=== PATIENT | female | born 1955 | race American Indian/Alaskan Native ===

== ENCOUNTER 2017-03-29 09:29 | Inpatient (IN) | payer OTHER ==
[2017-03-29] MEDS ORDERED: Albuterol/Ipratropium 3.0-0.5 MG/3 ML Neb Soln NEB ONE (09:55)
[2017-03-29 10:30] LABS: CHLORIDE,CL 92 mmol/L (101-111); SODIUM,NA 136 mmol/L (135-145)
--- NOTE | 2017-03-29 10:42 | EDM.PDOC ---
ED HPI GENERAL MEDICAL PROBLEM - General Chief Complaint: Respiratory Problem Stated Complaint: SICK, TROUBLE BREATH Time Seen by Provider: 03/29/17 10:00 Source of Information: Reports: Patient History Limitations: Reports: No Limitations - History of Present Illness INITIAL COMMENTS - FREE TEXT/NARRATIVE: This 61 yo female patient reports to the ED with her daughter due to increased shortness of breath, cough and generalized weakness. The patient reports she started getting worse about 3 days ago, but has been dealing with the increased shortness of breath and cough for about 3 weeks. Upon arrival in the ED, the patient's oxygen saturation was 82% on room air. Nursing staff placed her on a nasal cannula which increased her oxygen level to 86%. The patient reports she has "never been this bad". The patient reports she has continued to smoke (50 year history), but has only smoked 2 cigarettes over the past 24 hours. The patient works the [employer] shift at the [employer]. The patient reports she is currently unable to walk very far before she has to stop to catch her breath. 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 ED EXAM, GENERAL - Physical Exam Exam: See Below Exam Limited By: No Limitations General Appearance: Alert, WD/WN, Moderate Distress, Obese Eye Exam: Bilateral Eye: EOMI, Normal Inspection, PERRL Ears: Normal External Exam, Normal Canal, Hearing Grossly Normal, Normal TMs Nose: Normal Inspection, Normal Mucosa, No Blood Throat/Mouth: Normal Inspection, Normal Lips, Normal Teeth, Normal Gums, Normal Oropharynx, Normal Voice, No Airway Compromise Head: Atraumatic, Normocephalic Neck: Normal Inspection, Supple, Non-Tender, Full Range of Motion Respiratory/Chest: Chest Non-Tender, Decreased Breath Sounds, Rhonchi (diffuse ) Cardiovascular: Normal Peripheral Pulses, Regular Rate, Rhythm, No Edema, No Gallop, No JVD, No Murmur, No Rub GI/Abdominal: Normal Bowel Sounds (Female) Exam: Deferred Rectal (Female) Exam: Deferred Back Exam: Normal Inspection, Full Range of Motion, NT Extremities: Normal Inspection, Normal Range of Motion, Non-Tender, Normal Capillary Refill, No Pedal Edema Neurological: Alert, Oriented, CN II-XII Intact, Normal Cognition, Normal Gait, Normal Reflexes, No Motor/Sensory Deficits Psychiatric: Normal Affect, Normal Mood Skin Exam: Warm, Dry, Intact, Normal Color, No Rash Lymphatic: No Adenopathy Course - Vital Signs Last Recorded V/S: Last Vital Signs Temp 37.0 C 03/29/17 09:46 Pulse 115 H 03/29/17 10:05 Resp 22 H 03/29/17 09:46 BP 128/58 L 03/29/17 09:46 Pulse Ox 90 L 03/29/17 10:05 - Orders/Labs/Meds Orders: Active Orders 24 hr Category Date Time Status RT Aerosol Therapy [RC] ASDIRECTED Care 03/29/17 09:56 Active Chest 2V [CR] Urgent Exams 03/29/17 09:49 Taken CULTURE BLOOD [BC] Stat Lab 03/29/17 10:00 Received CULTURE BLOOD [BC] Stat Lab 03/29/17 10:05 Received CULTURE SPUTUM + SMEAR [RM] Stat Lab 03/29/17 10:36 Received Azithromycin [Zithromax] 1,000 mg Med 03/29/17 11:18 Ordered Sodium Chloride 0.9% [Normal Saline] 250 ml IV ONETIME cefTRIAXone [Rocephin] 500 mg Med 03/29/17 11:18 Ordered Sodium Chloride 0.9% [Normal Saline] 50 ml IV ONETIME Blood Culture x2 Reflex Set [OM.PC] Stat Oth 03/29/17 09:49 Ordered Medication Orders Azithromycin 1,000 mg/ Sodium (Chloride) 250 mls @ 250 mls/hr IV ONETIME ONE Stop: 03/29/17 12:17 Ceftriaxone Sodium 500 mg/ (Sodium Chloride) 50 mls @ 100 mls/hr IV ONETIME ONE Stop: 03/29/17 11:47 Labs: Laboratory Tests 03/29/17 03/29/17 03/29/17 Range/Units 10:05 10:05 10:05 WBC 20.0 H (5.0-10.0) 10^3/uL RBC 4.80 (4.2-5.4) 10^6/uL Hgb 14.8 (12.0-16.0) g/dL Hct 47.8 H (37.0-47.0) % MCV 99.6 (80-100) fL MCH 30.8 (27.0-34.0) pg MCHC 31.0 L (33.0-35.0) g/dL Plt Count 222 (150-450) 10^3/uL Neut % (Auto) 85.6 H (42.2-75.2) % Lymph % (Auto) 6.9 L (20.5-50.1) % [place] % (Auto) 7.3 (2-8) % Eos % (Auto) 0.1 L (1.0-3.0) % Baso % (Auto) 0.1 (0.0-1.0) % Add Manual Diff Yes Neutrophils % (Manual) 85 H (42-75) % Band Neutrophils % 2 % Lymphocytes % (Manual) 7 L (20-50) % Monocytes % (Manual) 6 (2-8) % Sodium 136 (135-145) mmol/L Potassium 4.1 (3.6-5.0) mmol/L Chloride 92 L (101-111) mmol/L Carbon Dioxide 33.0 H (21.0-31.0) mmol/L Anion Gap 15.1 BUN 13 (7-18) mg/dL Creatinine 0.9 (0.6-1.3) mg/dL Est Cr Clr Drug Dosing 64.64 mL/min Estimated GFR (MDRD) > 60 BUN/Creatinine Ratio 14.44 Glucose 150 H (74-105) mg/dL Lactic Acid 1.0 (0.5-2.2) mmol/L Calcium 8.7 (8.4-10.2) mg/dl Total Bilirubin 0.7 (0.2-1.0) mg/dL AST 18 (10-42) IU/L ALT 24 (10-60) IU/L Alkaline Phosphatase 89 (42-121) IU/L B-Natriuretic Peptide (0-100) pg/ml Total Protein 7.7 (6.7-8.2) g/dl Albumin 3.3 (3.2-5.5) g/dl Globulin 4.4 Albumin/Globulin Ratio 0.75 // Range/Units 10:05 WBC (5.0-10.0) 10^3/uL RBC (4.2-5.4) 10^6/uL Hgb (12.0-16.0) g/dL Hct (37.0-47.0) % MCV (80-100) fL MCH (27.0-34.0) pg MCHC (33.0-35.0) g/dL Plt Count (150-450) 10^3/uL Neut % (Auto) (42.2-75.2) % Lymph % (Auto) (20.5-50.1) % [place] % (Auto) (2-8) % Eos % (Auto) (1.0-3.0) % Baso % (Auto) (0.0-1.0) % Add Manual Diff Neutrophils % (Manual) (42-75) % Band Neutrophils % % Lymphocytes % (Manual) (20-50) % Monocytes % (Manual) (2-8) % Sodium (135-145) mmol/L Potassium (3.6-5.0) mmol/L Chloride (101-111) mmol/L Carbon Dioxide (21.0-31.0) mmol/L Anion Gap BUN (7-18) mg/dL Creatinine (0.6-1.3) mg/dL Est Cr Clr Drug Dosing mL/min Estimated GFR (MDRD) BUN/Creatinine Ratio Glucose (74-105) mg/dL Lactic Acid (0.5-2.2) mmol/L Calcium (8.4-10.2) mg/dl Total Bilirubin (0.2-1.0) mg/dL AST (10-42) IU/L ALT (10-60) IU/L Alkaline Phosphatase (42-121) IU/L B-Natriuretic Peptide 312 H (0-100) pg/ml Total Protein (6.7-8.2) g/dl Albumin (3.2-5.5) g/dl Globulin Albumin/Globulin Ratio Meds: Medications Generic Name Dose Route Start Last Admin Trade Name Freq PRN Reason Stop Dose Admin Azithromycin 1,000 mg/ Sodium 250 mls @ 250 mls/hr 03/29/17 11:18 Chloride IV 03/29/17 12:17 ONETIME ONE Ceftriaxone Sodium 500 mg/ 50 mls @ 100 mls/hr 03/29/17 11:18 Sodium Chloride IV 03/29/17 11:47 ONETIME ONE Discontinued Medications Generic Name Dose Route Start Last Admin Trade Name Freq PRN Reason Stop Dose Admin Albuterol/Ipratropium 3 ml 03/29/17 09:55 03/29/17 10:05 Duoneb 3.0-0.5 Mg/3 Ml NEB 03/29/17 09:56 3 ml ONETIME ONE Administration Levofloxacin/Dextrose 750 mg/ 150 mls @ 100 mls/hr 03/29/17 10:53 03/29/17 10 :59 Premix IV 03/29/17 12:22 100 mls/hr ONETIME ONE Administration - Re-Assessments/Exams Free Text/Narrative Re-Assessment/Exam: 03/29/17 11:10 Discussed the history, examination, lab and x-ray results with Dr. Castro ( Hospitalist). Dr. Castro agreed to come down to the ED to visit the patient. After hanging up with Dr. Castro, the patient reported a rash and itching over the IV site. The IV Levaquin was discontinued at that time. Departure - Departure Time of Disposition: 11:20 Disposition: Admitted As Inpatient 67 Condition: Fair Clinical Impression: Pneumonia Qualifiers: Pneumonia type: due to unspecified organism Laterality: bilateral Lung location : unspecified part of lung Qualified Code(s): J18.9 - Pneumonia, unspecified organism - Discharge Information Forms: ED Department Discharge Care Plan Goals: Discussed the examination, history, lab and x-ray results with Dr. Castro. Dr. Castro accepted the patient for continued evaluation and management as an inpatient at [facility]. - My Orders Last 24 Hours: My Active Orders 03/29/17 09:49 Chest 2V [CR] Urgent Blood Culture x2 Reflex Set [OM.PC] Stat 03/29/17 09:56 RT Aerosol Therapy [RC] ASDIRECTED 03/29/17 10:00 CULTURE BLOOD [BC] Stat 03/29/17 10:05 CULTURE BLOOD [BC] Stat 03/29/17 10:36 CULTURE SPUTUM + SMEAR [RM] Stat 03/29/17 11:18 Azithromycin [Zithromax] 1,000 mg Sodium Chloride 0.9% [Normal Saline] 250 ml IV ONETIME cefTRIAXone [Rocephin] 500 mg Sodium Chloride 0.9% [Normal Saline] 50 ml IV ONETIME - Assessment/Plan Last 24 Hours: My Active Orders 03/29/17 09:49 Chest 2V [CR] Urgent Blood Culture x2 Reflex Set [OM.PC] Stat 03/29/17 09:56 RT Aerosol Therapy [RC] ASDIRECTED 03/29/17 10:00 CULTURE BLOOD [BC] Stat 03/29/17 10:05 CULTURE BLOOD [BC] Stat 03/29/17 10:36 CULTURE SPUTUM + SMEAR [RM] Stat 03/29/17 11:18 Azithromycin [Zithromax] 1,000 mg Sodium Chloride 0.9% [Normal Saline] 250 ml IV ONETIME cefTRIAXone [Rocephin] 500 mg Sodium Chloride 0.9% [Normal Saline] 50 ml IV ONETIME
[2017-03-29] MEDS ORDERED: Levofloxacin/Dextrose 5%-Water 750 MG in Premix Bag 1 BAG IV ONE (10:53)
[2017-03-29] MEDS ORDERED: Albuterol 0.083% 2.5 MG/3 ML Neb Soln NEB PRN (11:28)
[2017-03-29] MEDS ORDERED: Ondansetron 4 MG/2 ML SDV IVPUSH PRN (11:28)
[2017-03-29] MEDS: cefTRIAXone 500 MG in Sodium Chloride 0.9% 50 ML IV ONE ×2 (11:31→12:05)
--- NOTE | 2017-03-29 11:34 | CR ---
Clinical history: 61-year-old female complaining of shortness of breath (WBC 20,000). Interpretation: Abnormal. Diffuse interstitial fibrotic pattern, generalized air trapping, and hilar prominence suggesting some underlying adenopathy. Smoker? Pneumoconiosis? Interstitial pneumonitis? Normal cardiac silhouette without alveolar edema or dependent effusion. No lung mass, hilar lymphadenopathy or focal lobar consolidation (infiltrate/atelectasis).
[2017-03-29] MEDS ORDERED: cefTRIAXone 500 MG in Sodium Chloride 0.9% 50 ML IV ONE (11:36)
[2017-03-29] MEDS ORDERED: Azithromycin 500 MG in Sodium Chloride 0.9% 250 ML IV ONE (12:00)
[2017-03-29] MEDS: Sodium Chloride 0.9% 1,000 ML IV SCH ×2 (12:07→21:38)
[2017-03-29] MEDS: cefTRIAXone 1 GM in Sodium Chloride 0.9% 50 ML IV SCH (12:33)
--- NOTE | 2017-03-29 16:43 | HP ---
CHIEF COMPLAINT: Shortness of breath and cough. HISTORY OF PRESENT ILLNESS: Ms. Preeti Remy is a 61-year-old female with no previous medical history. She presented to emergency room with complaint of cough, which has been going on for about one week. The cough was worsened over time. She has associated shortness of breath, which is present at rest, but significantly worse with activity. She has been coughing up yellowish sputum. She does not know if she has had any fever, but has occasional chills. No nausea. No vomiting. Her exercise tolerance has been markedly limited because of the cough and shortness of breath. At presentation in the emergency room, she was noted to be hypoxic with saturation down to 80%. She was tachycardic heart rate of 122 per minute. She was placed on supplemental oxygen. Denies chest pain. REVIEW OF SYSTEMS: A 10-point review of system performed including constitutional, cardiac, respiratory, gastrointestinal, respiratory. No other pertinent findings except as noted above. PAST MEDICAL HISTORY: None of note. SOCIAL HISTORY: Smokes one pack of cigarettes per day. FAMILY HISTORY: Reviewed and considered noncontributory. OBJECTIVE: General: The patient is alert, oriented to place, time, and person. Head: Atraumatic and normocephalic. Ear, Nose, and throat: Unremarkable. Chest: Diminished air entry bilaterally. Crackles at lung bases. CVS: Regular rate and rhythm. No S3, S4. Tachycardia. Abdomen: Soft and nontender. Extremities: No pedal edema. No finger clubbing. Skin: No rash. Neuro: Symmetric strength. Vital Signs: Blood pressure is a little bit on the soft side, systolic of 80 and diastolic of 67, pulse is 112 per minute. Oxygen saturation 80% on room. LABORATORY DATA: White count is 20,000. Chest x-ray shows infiltrates at lung bases, bilateral. Basic metabolic panel essentially unremarkable. BNP is 312. ASSESSMENT: 1. Acute hypoxemic respiratory failure, this is a result of chronic obstructive pulmonary disease and pneumonia. 2. Community-acquired pneumonia. The patient is coughing. She is short of breath. Chest x-ray showed density in the lung bases. 3. Sepsis, likely due to pneumonia. 4. Emphysema. The patient is an active smoker. 5. Tobacco use disorder, smokes one pack of cigarettes a day. PLAN: 1. Admit patient to medical floor. 2. Sputum culture. 3. Blood culture. 4. I will check serum lactate. 5. Obtain repeat CBC, obtain repeat basic metabolic panel. 6. Empiric antibiotics, intravenous ceftriaxone, intravenous azithromycin. 7. Normal saline run at 125 mL an hour. 8. Repeat BNP. 9. Chart reviewed. Discussed with emergency room physician orthopedic assistant. [facility] /[id number]
[2017-03-29] MEDS: Albuterol/Ipratropium 3.0-0.5 MG/3 ML Neb Soln NEB SCH ×2 (16:56→20:55)
[2017-03-30] MEDS: Sodium Chloride 0.9% 1,000 ML IV SCH ×3 (06:23→22:19)
[2017-03-30 06:39] LABS: CHLORIDE,CL 97 mmol/L (101-111); SODIUM,NA 139 mmol/L (135-145)
[2017-03-30] MEDS: Albuterol/Ipratropium 3.0-0.5 MG/3 ML Neb Soln NEB SCH ×4 (07:28→21:24)
[2017-03-30] MEDS: Enoxaparin 40 MG/0.4 ML Syringe SUBCUT SCH (08:42)
--- NOTE | 2017-03-30 10:52 | PCM.PN ---
- General Info Date of Service: 03/30/17 Subjective Update: Had low-grade temperature overnight. Still has moderate shortness of breath that started prior to admission. Shortness of breath is worse with activity better with rest. Associated with cough. No abdominal pain. Functional Status: Reports: Tolerating Diet - Review of Systems General: Reports: Fever (Low-grade) Pulmonary: Reports: Shortness of Breath, Cough. Denies: Hemoptysis Gastrointestinal: Denies: Abdominal Pain Neurological: Denies: Confusion - Patient Data Vitals - Most Recent: Last Vital Signs Temp 37.4 C 03/30/17 07:00 Pulse 112 H 03/30/17 07:24 Resp 20 03/30/17 07:00 BP 138/68 03/30/17 07:00 Pulse Ox 91 L 03/30/17 07:24 Weight - Most Recent: 107.728 kg I&O - Last 24 Hours: Intake & Output 03/29/17 03/30/17 03/30/17 22:59 06:59 14:59 Intake Total 1678 990 Output Total 900 Balance 1678 90 Lab Results Last 24 Hours: Laboratory Results - last 24 hr 03/29/17 03/30/17 03/30/17 Range/Units 16:38 06:10 06:10 WBC 16.5 H (5.0-10.0) 10^3/uL RBC 4.19 L (4.2-5.4) 10^6/uL Hgb 12.9 D (12.0-16.0) g/dL Hct 42.9 (37.0-47.0) % MCV 102.4 H (80-100) fL MCH 30.8 (27.0-34.0) pg MCHC 30.1 L (33.0-35.0) g/dL Plt Count 198 (150-450) 10^3/uL Neut % (Auto) 84.7 H (42.2-75.2) % Lymph % (Auto) 8.7 L (20.5-50.1) % [place] % (Auto) 6.4 (2-8) % Eos % (Auto) 0.1 L (1.0-3.0) % Baso % (Auto) 0.1 (0.0-1.0) % Sodium (135-145) mmol/L Potassium (3.6-5.0) mmol/L Chloride (101-111) mmol/L Carbon Dioxide (21.0-31.0) mmol/L Anion Gap BUN (7-18) mg/dL Creatinine (0.6-1.3) mg/dL Est Cr Clr Drug Dosing mL/min Estimated GFR (MDRD) Glucose (74-105) mg/dL Calcium (8.4-10.2) mg/dl Troponin I < 0.02 (0.00-0.02) ng/ml B-Natriuretic Peptide 262 H (0-100) pg/ml 03/30/17 Range/Units 06:10 WBC (5.0-10.0) 10^3/uL RBC (4.2-5.4) 10^6/uL Hgb (12.0-16.0) g/dL Hct (37.0-47.0) % MCV (80-100) fL MCH (27.0-34.0) pg MCHC (33.0-35.0) g/dL Plt Count (150-450) 10^3/uL Neut % (Auto) (42.2-75.2) % Lymph % (Auto) (20.5-50.1) % [place] % (Auto) (2-8) % Eos % (Auto) (1.0-3.0) % Baso % (Auto) (0.0-1.0) % Sodium 139 (135-145) mmol/L Potassium 4.3 (3.6-5.0) mmol/L Chloride 97 L (101-111) mmol/L Carbon Dioxide 34.0 H (21.0-31.0) mmol/L Anion Gap 12.3 BUN 8 (7-18) mg/dL Creatinine 0.6 (0.6-1.3) mg/dL Est Cr Clr Drug Dosing 93.34 mL/min Estimated GFR (MDRD) > 60 Glucose 105 (74-105) mg/dL Calcium 8.2 L (8.4-10.2) mg/dl Troponin I (0.00-0.02) ng/ml B-Natriuretic Peptide (0-100) pg/ml Med Orders - Current: Current Medications Acetaminophen (Tylenol) 650 mg PO Q4H PRN PRN Reason: Pain (Mild 1-3)/fever Albuterol (Proventil Neb Soln) 2.5 mg NEB Q2H PRN PRN Reason: shortness of breath/wheezing Albuterol/Ipratropium (Duoneb 3.0-0.5 Mg/3 Ml) 3 ml NEB QIDRT [facility] Last Admin: 03/30/17 07:28 Dose: 3 ml Budesonide (Pulmicort) 0.5 mg NEB BIDRT [facility] Enoxaparin Sodium (Lovenox) 40 mg SUBCUT DAILY [facility] Last Admin: 03/30/17 08:42 Dose: 40 mg Sodium Chloride (Normal Saline) 1,000 mls @ 125 mls/hr IV ASDIRECTED [facility] Last Admin: 03/30/17 06:23 Dose: 125 mls/hr Ceftriaxone Sodium 1 gm/ (Sodium Chloride) 50 mls @ 100 mls/hr IV Q24H [facility] Last Infusion: 03/29/17 14:23 Dose: Infused Azithromycin 250 mg/ Sodium (Chloride) 250 mls @ 250 mls/hr IV Q24H [facility] Ondansetron HCl (Zofran) 4 mg IVPUSH Q6H PRN PRN Reason: Nausea/Vomiting Senna/Docusate Sodium (Senna Plus) 1 tab PO BID [facility] Discontinued Medications Albuterol/Ipratropium (Duoneb 3.0-0.5 Mg/3 Ml) 3 ml NEB ONETIME ONE Stop: 03/29/17 09:56 Last Admin: 03/29/17 10:05 Dose: 3 ml Levofloxacin/Dextrose 750 mg/ (Premix) 150 mls @ 100 mls/hr IV ONETIME ONE Stop: 03/29/17 12:22 Last Admin: 03/29/17 10:59 Dose: 100 mls/hr Azithromycin 1,000 mg/ Sodium (Chloride) 250 mls @ 250 mls/hr IV ONETIME ONE Stop: 03/29/17 12:17 Last Admin: 03/29/17 12:05 Dose: Not Given Ceftriaxone Sodium 500 mg/ (Sodium Chloride) 50 mls @ 100 mls/hr IV ONETIME ONE Stop: 03/29/17 11:47 Last Admin: 03/29/17 12:05 Dose: Not Given Azithromycin 500 mg/ Sodium (Chloride) 250 mls @ 250 mls/hr IV DAILY ONE Stop: 03/29/17 12:59 Last Admin: 03/29/17 12:35 Dose: 250 mls/hr - Exam Quality Assessment: Supplemental Oxygen General: Alert, Oriented Neck: Supple Lungs: Normal Respiratory Effort, Decreased Breath Sounds, Wheezing Cardiovascular: Regular Rate, Regular Rhythm GI/Abdominal Exam: Normal Bowel Sounds, Soft, Non-Tender Extremities: No Pedal Edema Skin: Warm, Dry Psy/Mental Status: Alert, Normal Affect, Normal Mood - Problem List & Annotations (1) Acute exacerbation of chronic obstructive pulmonary disease (COPD) SNOMED Code(s): 000217995 Code(s): J44.1 - CHRONIC OBSTRUCTIVE PULMONARY DISEASE W (ACUTE) EXACERBATION Status: Acute Current Visit: Yes (2) Pneumonia SNOMED Code(s): 964372139 Code(s): J18.9 - PNEUMONIA, UNSPECIFIED ORGANISM Status: Acute Current Visit: Yes Qualifiers: Pneumonia type: due to unspecified organism Laterality: bilateral Lung location: unspecified part of lung Qualified Code(s): J18.9 - Pneumonia, unspecified organism - Problem List Review Problem List Initiated/Reviewed/Updated: Yes - My Orders Last 24 Hours: My Active Orders 03/30/17 10:45 Azithromycin [Zithromax] 250 mg Sodium Chloride 0.9% [Normal Saline] 250 ml IV Q24H 03/30/17 10:46 RT Aerosol Therapy [RC] ASDIRECTED 03/30/17 11:00 Budesonide [Pulmicort] 0.5 mg NEB BIDRT 03/30/17 21:00 Docusate Sodium/Sennosides [Senna Plus] 1 tab PO BID 03/31/17 05:15 BASIC METABOLIC PANEL,BMP [CHEM] AM CBC WITH AUTO DIFF [HEME] AM - Assessment Assessment:: Acute hypoxemic respiratory failure with sepsis present on admission due to acute COPD exacerbation and pneumonia Sepsis resolved Supplemental oxygen as needed Acute community-acquired pneumonia with bilateral lower lobe infiltrates Blood culture pending Sputum culture pending Treat empirically with azithromycin and Rocephin Acute exacerbation of COPD Start Pulmicort Use DuoNeb scheduled and albuterol when necessary DVT prophylaxis with Lovenox Discussed with Dr. Castro today
[2017-03-30] MEDS: cefTRIAXone 1 GM in Sodium Chloride 0.9% 50 ML IV SCH (11:32)
[2017-03-30] MEDS: Budesonide 0.5 MG/2 ML Neb Susp NEB SCH ×2 (11:33→17:12)
[2017-03-30] MEDS ORDERED: Azithromycin 250 MG in Sodium Chloride 0.9% 250 ML IV SCH (12:00)
[2017-03-30] MEDS: Azithromycin 500 MG in Sodium Chloride 0.9% 250 ML IV SCH (12:54)
[2017-03-31] MEDS: Sodium Chloride 0.9% 1,000 ML IV SCH ×2 (06:29→18:56)
[2017-03-31 06:53] LABS: CHLORIDE,CL 98 mmol/L (101-111); SODIUM,NA 139 mmol/L (135-145)
[2017-03-31] MEDS: Albuterol/Ipratropium 3.0-0.5 MG/3 ML Neb Soln NEB SCH ×4 (07:30→22:51)
[2017-03-31] MEDS: Budesonide 0.5 MG/2 ML Neb Susp NEB SCH ×3 (07:30→17:48)
[2017-03-31] MEDS: Enoxaparin 40 MG/0.4 ML Syringe SUBCUT SCH (09:46)
--- NOTE | 2017-03-31 10:15 | PCM.PN ---
- General Info Date of Service: 03/31/17 Subjective Update: Continue to have low-grade temperature. Still has moderate shortness of breath that started prior to admission. Shortness of breath is worse with activity better with rest. Associated with cough. No abdominal pain. - Review of Systems General: Reports: Fever Pulmonary: Reports: Shortness of Breath Cardiovascular: Denies: Chest Pain Gastrointestinal: Denies: Abdominal Pain Psychiatric: Denies: Confusion - Patient Data Vitals - Most Recent: Last Vital Signs Temp 36.2 C 03/31/17 06:59 Pulse 100 03/31/17 07:30 Resp 20 03/31/17 06:59 BP 128/64 03/31/17 06:59 Pulse Ox 95 03/31/17 06:59 Weight - Most Recent: 107.728 kg I&O - Last 24 Hours: Intake & Output 03/30/17 03/31/17 03/31/17 22:59 06:59 14:59 Intake Total 443 1833 Output Total 600 400 Balance -157 1433 Lab Results Last 24 Hours: Laboratory Results - last 24 hr 03/31/17 03/31/17 Range/Units 06:10 06:10 WBC 12.4 H (5.0-10.0) 10^3/uL RBC 4.19 L (4.2-5.4) 10^6/uL Hgb 12.8 (12.0-16.0) g/dL Hct 43.3 (37.0-47.0) % MCV 103.3 H (80-100) fL MCH 30.5 (27.0-34.0) pg MCHC 29.6 L (33.0-35.0) g/dL Plt Count 202 (150-450) 10^3/uL Neut % (Auto) 80.6 H (42.2-75.2) % Lymph % (Auto) 12.6 L (20.5-50.1) % [place] % (Auto) 6.4 (2-8) % Eos % (Auto) 0.2 L (1.0-3.0) % Baso % (Auto) 0.2 (0.0-1.0) % Sodium 139 (135-145) mmol/L Potassium 4.0 (3.6-5.0) mmol/L Chloride 98 L (101-111) mmol/L Carbon Dioxide 36.0 H (21.0-31.0) mmol/L Anion Gap 9.0 BUN 6 L (7-18) mg/dL Creatinine 0.5 L (0.6-1.3) mg/dL Est Cr Clr Drug Dosing 112.01 mL/min Estimated GFR (MDRD) > 60 Glucose 109 H (74-105) mg/dL Calcium 8.0 L (8.4-10.2) mg/dl Med Orders - Current: Current Medications Acetaminophen (Tylenol) 650 mg PO Q4H PRN PRN Reason: Pain (Mild 1-3)/fever Albuterol (Proventil Neb Soln) 2.5 mg NEB Q2H PRN PRN Reason: shortness of breath/wheezing Albuterol/Ipratropium (Duoneb 3.0-0.5 Mg/3 Ml) 3 ml NEB QIDRT [facility] Last Admin: 03/31/17 07:30 Dose: 3 ml Budesonide (Pulmicort) 0.5 mg NEB BIDRT [facility] Last Admin: 03/31/17 07:30 Dose: 0.5 mg Enoxaparin Sodium (Lovenox) 40 mg SUBCUT DAILY [facility] Last Admin: 03/31/17 09:46 Dose: 40 mg Sodium Chloride (Normal Saline) 1,000 mls @ 125 mls/hr IV ASDIRECTED [facility] Last Admin: 03/31/17 06:29 Dose: 125 mls/hr Ceftriaxone Sodium 1 gm/ (Sodium Chloride) 50 mls @ 100 mls/hr IV Q24H [facility] Last Infusion: 03/30/17 14:41 Dose: Infused Azithromycin 500 mg/ Sodium (Chloride) 250 mls @ 250 mls/hr IV Q24H [facility] Last Admin: 03/30/17 12:54 Dose: 250 mls/hr Ondansetron HCl (Zofran) 4 mg IVPUSH Q6H PRN PRN Reason: Nausea/Vomiting Senna/Docusate Sodium (Senna Plus) 1 tab PO BID [facility] Last Admin: 03/31/17 09:46 Dose: 1 tab Discontinued Medications Albuterol/Ipratropium (Duoneb 3.0-0.5 Mg/3 Ml) 3 ml NEB ONETIME ONE Stop: 03/29/17 09:56 Last Admin: 03/29/17 10:05 Dose: 3 ml Levofloxacin/Dextrose 750 mg/ (Premix) 150 mls @ 100 mls/hr IV ONETIME ONE Stop: 03/29/17 12:22 Last Admin: 03/29/17 10:59 Dose: 100 mls/hr Azithromycin 1,000 mg/ Sodium (Chloride) 250 mls @ 250 mls/hr IV ONETIME ONE Stop: 03/29/17 12:17 Last Admin: 03/29/17 12:05 Dose: Not Given Ceftriaxone Sodium 500 mg/ (Sodium Chloride) 50 mls @ 100 mls/hr IV ONETIME ONE Stop: 03/29/17 11:47 Last Admin: 03/29/17 12:05 Dose: Not Given Azithromycin 500 mg/ Sodium (Chloride) 250 mls @ 250 mls/hr IV DAILY ONE Stop: 03/29/17 12:59 Last Admin: 03/29/17 12:35 Dose: 250 mls/hr Azithromycin 250 mg/ Sodium (Chloride) 250 mls @ 83.333 mls/hr IV Q24H [facility] Last Admin: 03/30/17 13:26 Dose: Not Given - Exam Quality Assessment: Supplemental Oxygen General: Alert, Oriented Lungs: Normal Respiratory Effort, Decreased Breath Sounds, Rhonchi (Basilar) Cardiovascular: Regular Rate, Regular Rhythm GI/Abdominal Exam: Normal Bowel Sounds, Soft, Non-Tender, No Organomegaly Extremities: No Pedal Edema Neurological: No New Focal Deficit - Problem List & Annotations (1) Acute exacerbation of chronic obstructive pulmonary disease (COPD) SNOMED Code(s): 242816365 Code(s): J44.1 - CHRONIC OBSTRUCTIVE PULMONARY DISEASE W (ACUTE) EXACERBATION Status: Acute Current Visit: Yes (2) Pneumonia SNOMED Code(s): 240052859 Code(s): J18.9 - PNEUMONIA, UNSPECIFIED ORGANISM Status: Acute Current Visit: Yes Qualifiers: Pneumonia type: due to unspecified organism Laterality: bilateral Lung location: unspecified part of lung Qualified Code(s): J18.9 - Pneumonia, unspecified organism - Problem List Review Problem List Initiated/Reviewed/Updated: Yes - My Orders Last 24 Hours: My Active Orders 03/30/17 10:46 RT Aerosol Therapy [RC] 03/30/17 11:00 Budesonide [Pulmicort] 0.5 mg NEB BIDRT 03/30/17 13:00 Azithromycin [Zithromax] 500 mg Sodium Chloride 0.9% [Normal Saline] 250 ml IV Q24H 03/30/17 21:00 Docusate Sodium/Sennosides [Senna Plus] 1 tab PO BID - Assessment Assessment:: Acute hypoxemic respiratory failure with sepsis present on admission due to acute COPD exacerbation and pneumonia Sepsis resolved Supplemental oxygen as needed Acute community-acquired pneumonia with bilateral lower lobe infiltrates Blood culture pending Sputum culture pending Treat empirically with azithromycin and Rocephin Acute exacerbation of COPD Treat with Pulmicort Use DuoNeb scheduled and albuterol when necessary DVT prophylaxis with Lovenox
[2017-03-31] MEDS ORDERED: Magnesium Hydroxide 400 MG/5 ML Susp 30 ML Cup PO PRN (10:41)
[2017-03-31] MEDS: cefTRIAXone 1 GM in Sodium Chloride 0.9% 50 ML IV SCH (12:07)
[2017-03-31] MEDS: Azithromycin 500 MG in Sodium Chloride 0.9% 250 ML IV SCH (14:14)
[2017-04-01] MEDS: Acetaminophen 325 MG Tab PO PRN ×2 (02:06→23:17)
[2017-04-01] MEDS: Sodium Chloride 0.9% 1,000 ML IV SCH ×2 (03:01→11:16)
[2017-04-01 07:02] LABS: CHLORIDE,CL 101 mmol/L (101-111); SODIUM,NA 142 mmol/L (135-145)
[2017-04-01] MEDS: Albuterol/Ipratropium 3.0-0.5 MG/3 ML Neb Soln NEB SCH ×4 (08:22→21:22)
[2017-04-01] MEDS: Budesonide 0.5 MG/2 ML Neb Susp NEB SCH ×2 (08:22→18:27)
[2017-04-01] MEDS: Enoxaparin 40 MG/0.4 ML Syringe SUBCUT SCH (09:08)
[2017-04-01] MEDS: cefTRIAXone 1 GM in Sodium Chloride 0.9% 50 ML IV SCH (10:31)
--- NOTE | 2017-04-01 12:53 | PCM.PN ---
- General Info Date of Service: 04/01/17 Admission Dx/Problem (Free Text): admitted with : pneumonia and COPD exacerbation Subjective Update: nO MORE FEVER OVER THE NIGHT Still has moderate shortness of breath that started prior to admission. Shortness of breath is worse with activity better with rest. Associated with cough.No abdominal pain. no chest pain Functional Status: Reports: Pain Controlled, Tolerating Diet, Ambulating, Urinating - Review of Systems General: Reports: Weakness. Denies: Fever, Chills HEENT: Denies: Eye Pain, Headaches, Sinus Congestion Pulmonary: Reports: Shortness of Breath, Cough, Sputum. Denies: Wheezing Cardiovascular: Reports: Dyspnea on Exertion. Denies: Chest Pain, Lightheadedness Gastrointestinal: Denies: Abdominal Pain, Diarrhea, Melena, Nausea, Vomiting Genitourinary: Denies: Dysuria, Frequency, Urgency, Flank Pain Musculoskeletal: Denies: Shoulder Pain, Leg Pain, Foot Pain, Joint Swelling Skin: Denies: Jaundice, Bruising, Pruritis, Rash Neurological: Reports: Tremors. Denies: Confusion, Tingling Psychiatric: Denies: Anxiety, Agitation - Patient Data Vitals - Most Recent: Last Vital Signs Temp 35.6 C 04/01/17 08:57 Pulse 76 04/01/17 11:21 Resp 20 04/01/17 08:57 BP 122/55 L 04/01/17 08:57 Pulse Ox 89 L 04/01/17 11:21 Weight - Most Recent: 107.728 kg I&O - Last 24 Hours: Intake & Output 03/31/17 04/01/17 04/01/17 22:59 06:59 14:59 Intake Total 1800 1579 45 Output Total 600 700 Balance 1200 879 45 Lab Results Last 24 Hours: Laboratory Results - last 24 hr 04/01/17 04/01/17 Range/Units 06:23 06:23 WBC 8.7 (5.0-10.0) 10^3/uL RBC 3.87 L (4.2-5.4) 10^6/uL Hgb 12.0 (12.0-16.0) g/dL Hct 39.7 (37.0-47.0) % MCV 102.6 H (80-100) fL MCH 31.0 (27.0-34.0) pg MCHC 30.2 L (33.0-35.0) g/dL Plt Count 208 (150-450) 10^3/uL Neut % (Auto) 77.5 H (42.2-75.2) % Lymph % (Auto) 12.8 L (20.5-50.1) % [place] % (Auto) 8.8 H (2-8) % Eos % (Auto) 0.7 L (1.0-3.0) % Baso % (Auto) 0.2 (0.0-1.0) % Sodium 142 (135-145) mmol/L Potassium 4.4 (3.6-5.0) mmol/L Chloride 101 (101-111) mmol/L Carbon Dioxide 38.0 H (21.0-31.0) mmol/L Anion Gap 7.4 BUN 4 L (7-18) mg/dL Creatinine 0.4 L (0.6-1.3) mg/dL Est Cr Clr Drug Dosing 140.01 mL/min Estimated GFR (MDRD) > 60 Glucose 107 H (74-105) mg/dL Calcium 8.0 L (8.4-10.2) mg/dl Med Orders - Current: Current Medications Acetaminophen (Tylenol) 650 mg PO Q4H PRN PRN Reason: Pain (Mild 1-3)/fever Last Admin: 04/01/17 02:06 Dose: 650 mg Albuterol (Proventil Neb Soln) 2.5 mg NEB Q2H PRN PRN Reason: shortness of breath/wheezing Albuterol/Ipratropium (Duoneb 3.0-0.5 Mg/3 Ml) 3 ml NEB QIDRT [facility] Last Admin: 04/01/17 11:21 Dose: 3 ml Budesonide (Pulmicort) 0.5 mg NEB BIDRT [facility] Last Admin: 04/01/17 08:22 Dose: 0.5 mg Enoxaparin Sodium (Lovenox) 40 mg SUBCUT DAILY [facility] Last Admin: 04/01/17 09:08 Dose: 40 mg Ceftriaxone Sodium 1 gm/ (Sodium Chloride) 50 mls @ 100 mls/hr IV Q24H [facility] Last Admin: 04/01/17 10:31 Dose: 100 mls/hr Azithromycin 500 mg/ Sodium (Chloride) 250 mls @ 250 mls/hr IV Q24H [facility] Last Admin: 03/31/17 14:14 Dose: 250 mls/hr Magnesium Hydroxide (Milk Of Magnesia) 30 ml PO Q6H PRN PRN Reason: Constipation Last Admin: 03/31/17 14:17 Dose: 30 ml Ondansetron HCl (Zofran) 4 mg IVPUSH Q6H PRN PRN Reason: Nausea/Vomiting Senna/Docusate Sodium (Senna Plus) 1 tab PO BID [facility] Last Admin: 04/01/17 09:08 Dose: 1 tab Discontinued Medications Albuterol/Ipratropium (Duoneb 3.0-0.5 Mg/3 Ml) 3 ml NEB ONETIME ONE Stop: 03/29/17 09:56 Last Admin: 03/29/17 10:05 Dose: 3 ml Levofloxacin/Dextrose 750 mg/ (Premix) 150 mls @ 100 mls/hr IV ONETIME ONE Stop: 03/29/17 12:22 Last Admin: 03/29/17 10:59 Dose: 100 mls/hr Azithromycin 1,000 mg/ Sodium (Chloride) 250 mls @ 250 mls/hr IV ONETIME ONE Stop: 03/29/17 12:17 Last Admin: 03/29/17 12:05 Dose: Not Given Ceftriaxone Sodium 500 mg/ (Sodium Chloride) 50 mls @ 100 mls/hr IV ONETIME ONE Stop: 03/29/17 11:47 Last Admin: 03/29/17 12:05 Dose: Not Given Sodium Chloride (Normal Saline) 1,000 mls @ 125 mls/hr IV ASDIRECTED [facility] Last Admin: 04/01/17 11:16 Dose: 125 mls/hr Azithromycin 500 mg/ Sodium (Chloride) 250 mls @ 250 mls/hr IV DAILY ONE Stop: 03/29/17 12:59 Last Admin: 03/29/17 12:35 Dose: 250 mls/hr Azithromycin 250 mg/ Sodium (Chloride) 250 mls @ 83.333 mls/hr IV Q24H [facility] Last Admin: 03/30/17 13:26 Dose: Not Given - Exam Quality Assessment: Supplemental Oxygen, DVT Prophylaxis. No: Urine Catheter General: Alert, Oriented, Cooperative, No Acute Distress HEENT: Pupils Equal, Mucous Membr. Moist/[place] Neck: Supple, No JVD, No Thyromegaly. No: Lymphadenopathy Lungs: Clear to Auscultation, Normal Respiratory Effort, Crackles, Wheezing Cardiovascular: Regular Rate, Regular Rhythm, Murmurs GI/Abdominal Exam: Normal Bowel Sounds, Soft, No Distention. No: Guarding, Rigid, Rebound, Tender (Female) Exam: Deferred Back Exam: Normal Inspection, Full Range of Motion Extremities: Normal Inspection, No Pedal Edema Skin: Warm, Dry, Intact Neurological: No New Focal Deficit Psy/Mental Status: Alert, Normal Affect, Normal Mood - Problem List Review Problem List Initiated/Reviewed/Updated: Yes - Assessment Assessment:: This is a 61 Y/O F with no past medical history admitted with Pneumonia and COPD exacerbation Acute hypoxemic respiratory failure with sepsis present on admission due to acute COPD exacerbation and pneumonia -Will stop IV fluids - Will try to wean off Supplemental oxygen - Acute community-acquired pneumonia with bilateral lower lobe infiltrates - Blood culture showing no growth - Sputum culture Haemophilus Influenzae -Treat with azithromycin and Rocephin Acute exacerbation of COPD Treat with Pulmicort Use DuoNeb scheduled and albuterol when necessary DVT prophylaxis with Lovenox
[2017-04-01] MEDS: Azithromycin 500 MG in Sodium Chloride 0.9% 250 ML IV SCH ×2 (14:10→14:25)
[2017-04-01] MEDS ORDERED: Sodium Chloride 0.9% 10 ML Syringe FLUSH PRN (15:07)
[2017-04-02] MEDS: Budesonide 0.5 MG/2 ML Neb Susp NEB SCH ×2 (07:25→18:29)
[2017-04-02] MEDS: Albuterol/Ipratropium 3.0-0.5 MG/3 ML Neb Soln NEB SCH ×4 (07:25→22:04)
[2017-04-02] MEDS: Enoxaparin 40 MG/0.4 ML Syringe SUBCUT SCH (09:03)
[2017-04-02] MEDS ORDERED: Furosemide 40 MG/4 ML VIAL IVPUSH ONE (09:16)
[2017-04-02] MEDS: cefTRIAXone 1 GM in Sodium Chloride 0.9% 50 ML IV SCH (10:20)
--- NOTE | 2017-04-02 11:22 | PCM.PN ---
- General Info Date of Service: 04/02/17 Admission Dx/Problem (Free Text): admitted with : pneumonia and COPD exacerbation Subjective Update: She had no fever over the night, Still has moderate shortness of breath that started prior to admission. Shortness of breath is worse with activity better with rest. No abdominal pain. no chest pain, she is still on supplemental oxygen , will have walking dsat study today Functional Status: Reports: Pain Controlled, Tolerating Diet, Ambulating, Urinating - Review of Systems General: Reports: Appetite (good). Denies: Fever, Chills HEENT: Denies: Headaches, Sinus Congestion, Sore Throat, Visual Changes Pulmonary: Reports: Shortness of Breath, Cough. Denies: Sputum, Wheezing Cardiovascular: Reports: Dyspnea on Exertion. Denies: Chest Pain, Lightheadedness Gastrointestinal: Denies: Abdominal Pain, Diarrhea, Nausea, Vomiting Genitourinary: Denies: Dysuria, Frequency, Urgency, Flank Pain Musculoskeletal: Denies: Neck Pain, Leg Pain, Joint Pain Skin: Denies: Cyanosis, Diaphoresis, Dryness, Pruritis, Rash Neurological: Denies: Confusion, Numbness, Tremors Psychiatric: Reports: No Symptoms - Patient Data Vitals - Most Recent: Last Vital Signs Temp 36.8 C 04/02/17 08:00 Pulse 90 04/02/17 08:00 Resp 20 04/02/17 08:00 BP 116/61 04/02/17 08:00 Pulse Ox 92 L 04/02/17 08:00 Weight - Most Recent: 107.728 kg I&O - Last 24 Hours: Intake & Output 04/01/17 04/02/17 04/02/17 22:59 06:59 14:59 Intake Total 870 300 48 Output Total 1800 Balance 870 300 -1752 Med Orders - Current: Current Medications Acetaminophen (Tylenol) 650 mg PO Q4H PRN PRN Reason: Pain (Mild 1-3)/fever Last Admin: 04/01/17 23:17 Dose: 650 mg Albuterol (Proventil Neb Soln) 2.5 mg NEB Q2H PRN PRN Reason: shortness of breath/wheezing Last Admin: 04/01/17 15:30 Dose: 2.5 mg Albuterol/Ipratropium (Duoneb 3.0-0.5 Mg/3 Ml) 3 ml NEB QIDRT [facility] Last Admin: 04/02/17 07:25 Dose: 3 ml Budesonide (Pulmicort) 0.5 mg NEB BIDRT [facility] Last Admin: 04/02/17 07:25 Dose: 0.5 mg Enoxaparin Sodium (Lovenox) 40 mg SUBCUT DAILY [facility] Last Admin: 04/02/17 09:03 Dose: 40 mg Ceftriaxone Sodium 1 gm/ (Sodium Chloride) 50 mls @ 100 mls/hr IV Q24H [facility] Last Infusion: 04/02/17 11:01 Dose: Infused Azithromycin 500 mg/ Sodium (Chloride) 250 mls @ 250 mls/hr IV Q24H [facility] Last Admin: 04/01/17 14:25 Dose: 250 mls/hr Magnesium Hydroxide (Milk Of Magnesia) 30 ml PO Q6H PRN PRN Reason: Constipation Last Admin: 03/31/17 14:17 Dose: 30 ml Ondansetron HCl (Zofran) 4 mg IVPUSH Q6H PRN PRN Reason: Nausea/Vomiting Senna/Docusate Sodium (Senna Plus) 1 tab PO BID [facility] Last Admin: 04/02/17 09:05 Dose: Not Given Sodium Chloride (Saline Flush) 10 ml FLUSH ASDIRECTED PRN PRN Reason: Keep Vein Open Last Admin: 04/01/17 16:59 Dose: 10 ml Discontinued Medications Albuterol/Ipratropium (Duoneb 3.0-0.5 Mg/3 Ml) 3 ml NEB ONETIME ONE Stop: 03/29/17 09:56 Last Admin: 03/29/17 10:05 Dose: 3 ml Furosemide (Lasix) 40 mg IVPUSH NOW ONE Stop: 04/02/17 09:17 Last Admin: 04/02/17 10:13 Dose: 40 mg Levofloxacin/Dextrose 750 mg/ (Premix) 150 mls @ 100 mls/hr IV ONETIME ONE Stop: 03/29/17 12:22 Last Admin: 03/29/17 10:59 Dose: 100 mls/hr Azithromycin 1,000 mg/ Sodium (Chloride) 250 mls @ 250 mls/hr IV ONETIME ONE Stop: 03/29/17 12:17 Last Admin: 03/29/17 12:05 Dose: Not Given Ceftriaxone Sodium 500 mg/ (Sodium Chloride) 50 mls @ 100 mls/hr IV ONETIME ONE Stop: 03/29/17 11:47 Last Admin: 03/29/17 12:05 Dose: Not Given Sodium Chloride (Normal Saline) 1,000 mls @ 125 mls/hr IV ASDIRECTED [facility] Last Admin: 04/01/17 11:16 Dose: 125 mls/hr Azithromycin 500 mg/ Sodium (Chloride) 250 mls @ 250 mls/hr IV DAILY ONE Stop: 03/29/17 12:59 Last Admin: 03/29/17 12:35 Dose: 250 mls/hr Azithromycin 250 mg/ Sodium (Chloride) 250 mls @ 83.333 mls/hr IV Q24H [facility] Last Admin: 03/30/17 13:26 Dose: Not Given - Exam Quality Assessment: Supplemental Oxygen, DVT Prophylaxis. No: Urine Catheter General: Alert, Oriented, Cooperative, No Acute Distress HEENT: Pupils Equal, Mucous Membr. Moist/[place] Neck: Supple, No JVD, No Thyromegaly Lungs: Clear to Auscultation, Normal Respiratory Effort, Crackles. No: Wheezing Cardiovascular: Regular Rate, Regular Rhythm, Murmurs GI/Abdominal Exam: Normal Bowel Sounds, No Distention. No: Distended, Guarding , Rebound, Tender (Female) Exam: Deferred Back Exam: Normal Inspection, Full Range of Motion Extremities: Normal Inspection, No Pedal Edema Skin: Warm, Intact Neurological: No New Focal Deficit Psy/Mental Status: Alert, Normal Affect, Normal Mood - Problem List Review Problem List Initiated/Reviewed/Updated: Yes - My Orders Last 24 Hours: My Active Orders 04/01/17 14:20 6 Minute Walk Test [RT Physical Performance Test] [RESPCARE] Routine 04/01/17 15:07 Sodium Chloride 0.9% [Saline Flush] 10 ml FLUSH ASDIRECTED PRN Convert IV to Saline Lock [OM.PC] Routine - Assessment Assessment:: This is a 61 Y/O F with no past medical history admitted with Pneumonia and COPD exacerbation Acute hypoxemic respiratory failure with sepsis present on admission due to acute COPD exacerbation and pneumonia -Will stop IV fluids - Will try to wean off Supplemental oxygen -Will give lasix 40 mg IV X 1 dose now -Will have walking Desaturation study today - Acute community-acquired pneumonia with bilateral lower lobe infiltrates - Blood culture showing no growth - Sputum culture Haemophilus Influenzae -Continue IV azithromycin and Rocephin Acute exacerbation of COPD Treat with Pulmicort Use DuoNeb scheduled and albuterol when necessary DVT prophylaxis with Lovenox
[2017-04-02] MEDS: Azithromycin 500 MG in Sodium Chloride 0.9% 250 ML IV SCH (12:32)
[2017-04-02] MEDS: Acetaminophen 325 MG Tab PO PRN (22:09)
[2017-04-03] MEDS: Albuterol/Ipratropium 3.0-0.5 MG/3 ML Neb Soln NEB SCH ×2 (07:38→11:00)
[2017-04-03] MEDS: Budesonide 0.5 MG/2 ML Neb Susp NEB SCH (07:38)
[2017-04-03] MEDS: Enoxaparin 40 MG/0.4 ML Syringe SUBCUT SCH (08:34)
[2017-04-03] MEDS ORDERED: FLU VAC QS 17-18(4YR UP)CEL/PF 60 MCG/0.5 ML Syringe IM ONE (10:33)
--- NOTE | 2017-04-03 10:33 | PCM.DCSUM1 ---
Discharge Summary - Hospital Course Free Text/Narrative:: This is a 61 Y/O F with no past medical history admitted with Pneumonia and COPD exacerbation Acute hypoxemic respiratory failure with sepsis present on admission due to acute COPD exacerbation and pneumonia was treated with IVF - Will need home oxygen - Acute community-acquired pneumonia with bilateral lower lobe infiltrates - Blood culture showing no growth - Sputum culture Haemophilus Influenzae -Treated with IV azithromycin and Rocephin - finish home ABx with Levofloxacin Acute exacerbation of COPD Treated with Pulmicort, Use DuoNeb will discharge on symbicort, albuterol prn - Discharge Data Discharge Date: 04/03/17 Discharge Disposition: Home, Self-Care 01 Condition: Good - Discharge Diagnosis/Problem(s) (1) Acute exacerbation of chronic obstructive pulmonary disease (COPD) SNOMED Code(s): 677820468 ICD Code: J44.1 - CHRONIC OBSTRUCTIVE PULMONARY DISEASE W (ACUTE) EXACERBATION Status: Acute Current Visit: Yes (2) Pneumonia SNOMED Code(s): 928499280 ICD Code: J18.9 - PNEUMONIA, UNSPECIFIED ORGANISM Status: Acute Current Visit: Yes Qualifiers: Pneumonia type: due to unspecified organism Laterality: bilateral Lung location: unspecified part of lung Qualified Code(s): J18.9 - Pneumonia, unspecified organism - Patient Instructions Diet: Heart Healthy Diet Activity: As Tolerated - Discharge Plan Prescriptions/Med Rec: Albuterol [IJD: Ventolin HFA] 1 puff INH .TWICE DAILY #18 gm Budesonide/Formoterol [Symbicort 80-4.5 MCG] 1 puff INH BID #1 inhaler Levofloxacin 500 mg PO DAILY #7 tablet Home Medications: Home Meds Albuterol [IJD: Ventolin HFA] 1 puff INH .TWICE DAILY #18 gm 04/03/17 [Rx] Budesonide/Formoterol [Symbicort 80-4.5 MCG] 1 puff INH BID #1 inhaler 04/03/17 [Rx] Levofloxacin 500 mg PO DAILY #7 tablet 04/03/17 [Rx] - Discharge Summary/Plan Comment DC Time >30 min.: No - General Info Date of Service: 04/03/17 Admission Dx/Problem (Free Text: admitted with : pneumonia and COPD exacerbation feeling OK still on oxygen 1.5 l/min overnight with NC Functional Status: Reports: Pain Controlled - Review of Systems General: Denies: Fever, Weakness Pulmonary: Reports: Cough, Sputum. Denies: Shortness of Breath, Wheezing Cardiovascular: Denies: Chest Pain Gastrointestinal: Denies: Abdominal Pain Neurological: Denies: Confusion - Patient Data Vitals - Most Recent: Last Vital Signs Temp 36.6 C 04/03/17 07:00 Pulse 99 04/03/17 07:39 Resp 20 04/03/17 07:00 BP 104/41 L 04/03/17 07:00 Pulse Ox 91 L 04/03/17 07:39 Weight - Most Recent: 107.218 kg I&O - Last 24 hours: Intake & Output 04/02/17 04/03/17 04/03/17 22:59 06:59 14:59 Intake Total 470 100 Output Total 2950 1300 Balance -2480 -1200 Lab Results - Last 24 hrs: Laboratory Results - last 24 hr 04/03/17 Range/Units 06:28 WBC 7.5 (5.0-10.0) 10^3/uL RBC 4.94 (4.2-5.4) 10^6/uL Hgb 15.1 D (12.0-16.0) g/dL Hct 48.8 H (37.0-47.0) % MCV 98.8 D (80-100) fL MCH 30.6 (27.0-34.0) pg MCHC 30.9 L (33.0-35.0) g/dL Plt Count 278 (150-450) 10^3/uL Neut % (Auto) 69.6 (42.2-75.2) % Lymph % (Auto) 21.6 (20.5-50.1) % [place] % (Auto) 7.6 (2-8) % Eos % (Auto) 1.1 (1.0-3.0) % Baso % (Auto) 0.1 (0.0-1.0) % Add Manual Diff Yes Neutrophils % (Manual) 59 (42-75) % Band Neutrophils % 5 % Lymphocytes % (Manual) 26 (20-50) % Monocytes % (Manual) 7 (2-8) % Eosinophils % (Manual) 3 (1-3) % Med Orders - Current: Current Medications Acetaminophen (Tylenol) 650 mg PO Q4H PRN PRN Reason: Pain (Mild 1-3)/fever Last Admin: 04/02/17 22:09 Dose: 650 mg Albuterol (Proventil Neb Soln) 2.5 mg NEB Q2H PRN PRN Reason: shortness of breath/wheezing Last Admin: 04/01/17 15:30 Dose: 2.5 mg Albuterol/Ipratropium (Duoneb 3.0-0.5 Mg/3 Ml) 3 ml NEB QIDRT [facility] Last Admin: 04/03/17 07:38 Dose: 3 ml Budesonide (Pulmicort) 0.5 mg NEB BIDRT [facility] Last Admin: 04/03/17 07:38 Dose: 0.5 mg Enoxaparin Sodium (Lovenox) 40 mg SUBCUT DAILY [facility] Last Admin: 04/03/17 08:34 Dose: 40 mg Ceftriaxone Sodium 1 gm/ (Sodium Chloride) 50 mls @ 100 mls/hr IV Q24H [facility] Last Infusion: 04/02/17 11:01 Dose: Infused Azithromycin 500 mg/ Sodium (Chloride) 250 mls @ 250 mls/hr IV Q24H [facility] Last Admin: 04/02/17 12:32 Dose: 250 mls/hr Magnesium Hydroxide (Milk Of Magnesia) 30 ml PO Q6H PRN PRN Reason: Constipation Last Admin: 03/31/17 14:17 Dose: 30 ml Ondansetron HCl (Zofran) 4 mg IVPUSH Q6H PRN PRN Reason: Nausea/Vomiting Senna/Docusate Sodium (Senna Plus) 1 tab PO BID [facility] Last Admin: 04/03/17 08:34 Dose: Not Given Sodium Chloride (Saline Flush) 10 ml FLUSH ASDIRECTED PRN PRN Reason: Keep Vein Open Last Admin: 04/01/17 16:59 Dose: 10 ml Discontinued Medications Albuterol/Ipratropium (Duoneb 3.0-0.5 Mg/3 Ml) 3 ml NEB ONETIME ONE Stop: 03/29/17 09:56 Last Admin: 03/29/17 10:05 Dose: 3 ml Furosemide (Lasix) 40 mg IVPUSH NOW ONE Stop: 04/02/17 09:17 Last Admin: 04/02/17 10:13 Dose: 40 mg Levofloxacin/Dextrose 750 mg/ (Premix) 150 mls @ 100 mls/hr IV ONETIME ONE Stop: 03/29/17 12:22 Last Admin: 03/29/17 10:59 Dose: 100 mls/hr Azithromycin 1,000 mg/ Sodium (Chloride) 250 mls @ 250 mls/hr IV ONETIME ONE Stop: 03/29/17 12:17 Last Admin: 03/29/17 12:05 Dose: Not Given Ceftriaxone Sodium 500 mg/ (Sodium Chloride) 50 mls @ 100 mls/hr IV ONETIME ONE Stop: 03/29/17 11:47 Last Admin: 03/29/17 12:05 Dose: Not Given Sodium Chloride (Normal Saline) 1,000 mls @ 125 mls/hr IV ASDIRECTED [facility] Last Admin: 04/01/17 11:16 Dose: 125 mls/hr Azithromycin 500 mg/ Sodium (Chloride) 250 mls @ 250 mls/hr IV DAILY ONE Stop: 03/29/17 12:59 Last Admin: 03/29/17 12:35 Dose: 250 mls/hr Azithromycin 250 mg/ Sodium (Chloride) 250 mls @ 83.333 mls/hr IV Q24H [facility] Last Admin: 03/30/17 13:26 Dose: Not Given - Exam General: Reports: Alert, Oriented Lungs: Reports: Rhonchi (bibasilar) Cardiovascular: Reports: Regular Rate, Regular Rhythm Back Exam: Reports: Normal Inspection Skin: Reports: Warm, Dry Psy/Mental Status: Reports: Alert, Normal Affect, Normal Mood *Q Meaningful Use (DIS) - VTE *Q VTE Criteria *Q: - Stroke *Q Stroke Criteria *Q: - AMI *Q AMI Criteria *Q:
[2017-04-03 11:33] VITALS: BP 120/61
[2017-04-03] MEDS: cefTRIAXone 1 GM in Sodium Chloride 0.9% 50 ML IV SCH (11:37)
[2017-04-03] MEDS: Azithromycin 500 MG in Sodium Chloride 0.9% 250 ML IV SCH (13:11)
== END 2017-04-03 15:00 | disposition home or self-care (01) | DRG 871 ==
LOC: DL.ED 09:29 → DL.MS 11:28
PROVIDERS: ADMIT Hospitalist; ATTEND Hospitalist
DX: A41.9 Sepsis, unspecified organism (principal); J18.9 Pneumonia, unspecified organism; J96.01 Acute respiratory failure with hypoxia; J44.0 Chronic obstructive pulmonary disease with (acute) lower respiratory infection; J44.1 Chronic obstructive pulmonary disease with (acute) exacerbation; B96.3 Hemophilus influenzae [H. influenzae] as the cause of diseases classified elsewhere; F17.210 Nicotine dependence, cigarettes, uncomplicated; L23.3 Allergic contact dermatitis due to drugs in contact with skin; T37.8X5A Adverse effect of other specified systemic anti-infectives and antiparasitics, initial encounter; Y92.238 Other place in hospital as the place of occurrence of the external cause
CPT/HCPCS: 36415; 71020; 80048; 80053; 83605; 83880; 84484; 85025; 87040; 87070; 87077; 87205; 90674; 94060; 94640; 94640-76; 94667; 94668; 94761; 96365; 99285; A9270-GY; J0456; J0696; J1650; J1940; J1956; J7030; J7050; J7620-GY

== ENCOUNTER 2018-07-26 18:49 | Inpatient (IN) | payer OTHER ==
--- NOTE | 2018-07-26 19:32 | EDM.PDOC ---
ED HPI GENERAL MEDICAL PROBLEM - General Chief Complaint: Respiratory Problem Stated Complaint: HARD TO BREATH [id number] Time Seen by Provider: 07/26/18 19:31 Source of Information: Reports: Patient History Limitations: Reports: No Limitations - History of Present Illness INITIAL COMMENTS - FREE TEXT/NARRATIVE: 2 days h/o SOB, h/o COPD RUQ Pain Score (Numeric/FACES): 4 - Related Data Allergies Allergy/AdvReac Type Severity Reaction Status Date / Time levofloxacin Allergy Itching Verified 03/29/17 12:09 Home Meds: Home Meds Albuterol [IJD: Ventolin HFA] 1 puff INH .TWICE DAILY #18 gm 04/03/17 [Rx] Budesonide/Formoterol [Symbicort 80-4.5 MCG] 1 puff INH BID #1 inhaler 04/03/17 [Rx] Levofloxacin 500 mg PO DAILY #7 tablet 04/03/17 [Rx] Past Medical History Respiratory History: Reports: Bronchitis, Recurrent, COPD, Pneumonia, 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: Endocrine/Metabolic History: Reports: Obesity/BMI 30+ - Infectious Disease History Infectious Disease History: Reports: Chicken Pox, Measles - Past Surgical History Female Surgical History: Reports: Section Social & Family History - Family History Cardiac: Reports: Other (See Below) Other Cardiac Family History: "bad hearts" Endocrine/Metabolic: Reports: Diabetes, type II Dermatologic: Reports: Eczema Oncologic: Reports: Bone, Breast, Lung - Tobacco Use Smoking Status *Q: Current Every Day Smoker Years of Tobacco use: 50 Packs/Tins Daily: 1 Second Hand Smoke Exposure: Yes - Caffeine Use Caffeine Use: Reports: Soda - Recreational Drug Use Recreational Drug Use: No ED ROS GENERAL - Review of Systems Review Of Systems: ROS reveals no pertinent complaints other than HPI. ED EXAM, GENERAL - Physical Exam Exam: See Below Exam Limited By: No Limitations General Appearance: Alert, WD/WN, Mild Distress, Other (discomfort) Ears: Hearing Grossly Normal Throat/Mouth: Normal Voice, No Airway Compromise Head: Atraumatic Neck: Non-Tender, Full Range of Motion Respiratory/Chest: No Accessory Muscle Use, Rhonchi Cardiovascular: Regular Rate, Rhythm GI/Abdominal: Soft, Non-Tender Extremities: Pedal Edema, Other (1+) Neurological: Alert, Oriented, Normal Cognition, No Motor/Sensory Deficits Psychiatric: Flat Affect Skin Exam: Warm, Dry, Normal Color Lymphatic: No Adenopathy Course - Vital Signs Last Recorded V/S: Last Vital Signs Temp 36.9 C 07/26/18 19:02 Pulse 123 H 07/26/18 19:02 Resp 24 H 07/26/18 19:02 BP 100/57 L 07/26/18 19:02 Pulse Ox 92 L 07/26/18 19:02 - Orders/Labs/Meds Labs: Laboratory Tests 07/26/18 07/26/18 07/26/18 Range/Units 19:40 19:40 19:40 WBC 29.4 H* (5.0-10.0) 10^3/uL RBC 4.96 (4.2-5.4) 10^6/uL Hgb 15.1 (12.0-16.0) g/dL Hct 45.2 (37.0-47.0) % MCV 91.1 D (80-100) fL MCH 30.4 (27.0-34.0) pg MCHC 33.4 (33.0-35.0) g/dL Plt Count 137 L D (150-450) 10^3/uL Neut % (Auto) 89.0 H (42.2-75.2) % Lymph % (Auto) 5.1 L (20.5-50.1) % [place] % (Auto) 5.8 (2-8) % Eos % (Auto) 0.0 L (1.0-3.0) % Baso % (Auto) 0.1 (0.0-1.0) % Add Manual Diff Yes Neutrophils % (Manual) 71 (42-75) % Band Neutrophils % 20 % Lymphocytes % (Manual) 3 L (20-50) % Atypical Lymphs % 0 % Monocytes % (Manual) 6 (2-8) % Eosinophils % (Manual) 0 L (1-3) % Basophils % (Manual) 0 Anisocytosis 1+ slight Sodium 123 L D (135-145) mmol/L Potassium 3.5 L (3.6-5.0) mmol/L Chloride 86 L D (101-111) mmol/L Carbon Dioxide 24.0 D (21.0-31.0) mmol/L Anion Gap 16.5 BUN 23 H (7-18) mg/dL Creatinine 1.1 (0.6-1.3) mg/dL Est Cr Clr Drug Dosing 49.64 mL/min Estimated GFR (MDRD) 50 BUN/Creatinine Ratio 20.90 Glucose 120 H (74-105) mg/dL Lactic Acid 2.0 (0.5-2.2) mmol/L Calcium 7.8 L (8.4-10.2) mg/dl Total Bilirubin 1.1 H (0.2-1.0) mg/dL AST 34 (10-42) IU/L ALT 18 (10-60) IU/L Alkaline Phosphatase 61 (42-121) IU/L Total Protein 7.3 (6.7-8.2) g/dl Albumin 3.5 (3.2-5.5) g/dl Globulin 3.8 Albumin/Globulin Ratio 0.92 - Re-Assessments/Exams Free Text/Narrative Re-Assessment/Exam: 07/26/18 21:[address] Benral who kindly admitted pt. Departure - Departure Time of Disposition: 21:09 Disposition: Admitted As Inpatient 67 Condition: Fair Clinical Impression: Acute exacerbation of chronic obstructive pulmonary disease (COPD) Pneumonia Qualifiers: Pneumonia type: due to unspecified organism Laterality: right Lung location: upper lobe of lung Qualified Code(s): J18.1 - Lobar pneumonia, unspecified organism - Discharge Information Forms: ED Department Discharge
[2018-07-26 20:07] LABS: ANION GAP 16.5
[2018-07-26] MEDS ORDERED: Ondansetron 4 MG Tab.DIS PO PRN (21:53)
[2018-07-26] MEDS ORDERED: Polyethylene Glycol 3350 Powder 17 GM Packet PO PRN (21:53)
[2018-07-26] MEDS ORDERED: Ibuprofen 600 MG Tab PO PRN (21:53)
[2018-07-26] MEDS ORDERED: Docusate Sodium 100 MG Cap PO PRN (21:53)
[2018-07-26] MEDS ORDERED: Bisacodyl 5 MG Tab PO PRN (21:53)
[2018-07-26] MEDS ORDERED: Ondansetron 4 MG/2 ML SDV IVPUSH PRN (21:53)
[2018-07-26] MEDS ORDERED: Acetaminophen 325 MG Tab PO PRN (21:53)
[2018-07-26] MEDS ORDERED: Magnesium Hydroxide 400 MG/5 ML Susp 30 ML Cup PO PRN (21:53)
[2018-07-26] MEDS ORDERED: Promethazine 25 MG Tab PO PRN (21:53)
[2018-07-26] MEDS ORDERED: Sodium Chloride 0.9% 1,000 ML IV SCH (22:00)
[2018-07-26] MEDS ORDERED: Heparin Sodium 5,000 Units/ML Vial SUBCUT SCH (22:00)
--- NOTE | 2018-07-26 22:18 | PCM.HP ---
H&P History of Present Illness - General Date of Service: 07/26/18 Admit Problem/Dx: Admission Diagnosis/Problem Admission Diagnosis/Problem Severe sepsis Source of Information: Patient - History of Present Illness Initial Comments - Free Text/Narative: Ms. Remy is a 63 y.o female with medical history significant for tobacco use disorder, pneumonia, COPD, hypothyroidism, and osteoporosis who presented to the ED with complaints of 3 days of shortness of breath and cough. Reports cough with copious yellowish sputum. She reports progressive shortness of breath both at rest and with exertion. She reports chills but denies any fevers. Reports headache for which she took one dose of tylenol last night. Reports about 5 lb weight gain but did not specify the time frame. She reports smoking a pack of cigarettes daily but quit for 3 months last year when she had pneumonia. Started smoking at age 13. Had diarrhea this morning that was nonbloody and non-melenic. Reports she feels thirsty all the time and has been drinking lots of water. Reports that she also goes to the bathroom too frequently. Denies chest pain, nausea, vomiting, abdominal pain, night sweats, or edema. RUQ Pain Score (Numeric/FACES): 4 - Related Data Allergies/Adverse Reactions: Allergies Allergy/AdvReac Type Severity Reaction Status Date / Time levofloxacin Allergy Itching Verified 03/29/17 12:09 Home Medications: Home Meds Albuterol [IJD: Ventolin HFA] 1 puff INH .TWICE DAILY #18 gm 04/03/17 [Rx] Budesonide/Formoterol [Symbicort 80-4.5 MCG] 1 puff INH BID #1 inhaler 04/03/17 [Rx] Alendronate [Fosamax] 70 mg PO ASDIRECTED 07/26/18 [History] Ergocalciferol (Vitamin D2) [Ergocalciferol] 8,000 unit PO WEEKLY 07/26/18 [ History] Levothyroxine 75 mcg PO ACBREAKFAST 07/26/18 [History] Montelukast [Singulair] 10 mg PO DAILY 07/26/18 [History] Tiotropium [Spiriva] 18 mcg INH DAILY 07/26/18 [History] Past Medical History Respiratory History: Reports: Bronchitis, Recurrent, COPD, 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, 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: Endocrine/Metabolic History: Reports: Hypothyroidism, Obesity/BMI 30+ - Infectious Disease History Infectious Disease History: Reports: Chicken Pox, Measles - Past Surgical History Female Surgical History: Reports: Section Social & Family History - Family History Cardiac: Reports: Other (See Below) Other Cardiac Family History: "bad hearts" Endocrine/Metabolic: Reports: Diabetes, type II Dermatologic: Reports: Eczema Oncologic: Reports: Bone, Breast, Lung - Tobacco Use Smoking Status *Q: Current Every Day Smoker Years of Tobacco use: 50 Packs/Tins Daily: 1 Second Hand Smoke Exposure: Yes - Caffeine Use Caffeine Use: Reports: Soda - Recreational Drug Use Recreational Drug Use: No H&P Review of Systems - Review of Systems: Review Of Systems: ROS reveals no pertinent complaints other than HPI. Exam - Exam Exam: See Below - Vital Signs Vital Signs: Last Vital Signs Temp 99 F 07/26/18 21:33 Pulse 109 H 07/26/18 21:33 Resp 24 H 07/26/18 21:33 BP 101/49 L 07/26/18 21:33 Pulse Ox 97 07/26/18 21:33 Weight: 255 lb - Exam Quality Assessment: Supplemental Oxygen General: Alert, Oriented, Moderate Distress HEENT: Conjunctiva Clear, EOMI, Hearing Intact, Pupils Equal, Pupils Reactive Neck: Supple, Trachea Midline Lungs: Clear to Auscultation, Normal Respiratory Effort, Other (Shallow breaths. ) Cardiovascular: Regular Rate, Regular Rhythm, Tachycardia GI/Abdominal Exam: Normal Bowel Sounds, Non-Tender, No Organomegaly, No Distention Extremities: Normal Inspection, Normal Range of Motion, Non-Tender, No Pedal Edema, Other (Mottled, dry skin ) Peripheral Pulses: 2+: Radial (L), Radial (R), Dorsalis Pedis (L), Dorsalis Pedis (R) Neuro Extensive - Mental Status: Alert, Oriented x3, Normal Mood/Affect, Normal Cognition Psychiatric: Alert, Normal Affect, Normal Mood - Patient Data Lab Results Last 24 hrs: Laboratory Results - last 24 hr 07/26/18 07/26/18 07/26/18 Range/Units 19:40 19:40 19:40 WBC 29.4 H* (5.0-10.0) 10^3/uL RBC 4.96 (4.2-5.4) 10^6/uL Hgb 15.1 (12.0-16.0) g/dL Hct 45.2 (37.0-47.0) % MCV 91.1 D (80-100) fL MCH 30.4 (27.0-34.0) pg MCHC 33.4 (33.0-35.0) g/dL Plt Count 137 L D (150-450) 10^3/uL Neut % (Auto) 89.0 H (42.2-75.2) % Lymph % (Auto) 5.1 L (20.5-50.1) % [place] % (Auto) 5.8 (2-8) % Eos % (Auto) 0.0 L (1.0-3.0) % Baso % (Auto) 0.1 (0.0-1.0) % Add Manual Diff Yes Neutrophils % (Manual) 71 (42-75) % Band Neutrophils % 20 % Lymphocytes % (Manual) 3 L (20-50) % Atypical Lymphs % 0 % Monocytes % (Manual) 6 (2-8) % Eosinophils % (Manual) 0 L (1-3) % Basophils % (Manual) 0 Anisocytosis 1+ slight Sodium 123 L D (135-145) mmol/L Potassium 3.5 L (3.6-5.0) mmol/L Chloride 86 L D (101-111) mmol/L Carbon Dioxide 24.0 D (21.0-31.0) mmol/L Anion Gap 16.5 BUN 23 H (7-18) mg/dL Creatinine 1.1 (0.6-1.3) mg/dL Est Cr Clr Drug Dosing 49.64 mL/min Estimated GFR (MDRD) 50 BUN/Creatinine Ratio 20.90 Glucose 120 H (74-105) mg/dL Lactic Acid 2.0 (0.5-2.2) mmol/L Calcium 7.8 L (8.4-10.2) mg/dl Total Bilirubin 1.1 H (0.2-1.0) mg/dL AST 34 (10-42) IU/L ALT 18 (10-60) IU/L Alkaline Phosphatase 61 (42-121) IU/L Total Protein 7.3 (6.7-8.2) g/dl Albumin 3.5 (3.2-5.5) g/dl Globulin 3.8 Albumin/Globulin Ratio 0.92 Result Diagrams: 07/26/18 19:40 07/26/18 19:40 - Problem List (1) Acute respiratory failure with hypoxia SNOMED Code(s): 09722312, 430264647 ICD Code: J96.01 - ACUTE RESPIRATORY FAILURE WITH HYPOXIA Status: Acute Priority: High Current Visit: Yes (2) Hyponatremia SNOMED Code(s): 35357622 ICD Code: E87.1 - HYPO-OSMOLALITY AND HYPONATREMIA Status: Acute Priority : High Current Visit: Yes (3) Hypokalemia SNOMED Code(s): 05435117 ICD Code: E87.6 - HYPOKALEMIA Status: Acute Priority: Medium Current Visit: Yes (4) Severe sepsis SNOMED Code(s): 35154293 ICD Code: A41.9 - SEPSIS, UNSPECIFIED ORGANISM; R65.20 - SEVERE SEPSIS WITHOUT SEPTIC SHOCK Status: Acute Priority: High Current Visit: Yes (5) Tobacco use disorder SNOMED Code(s): 296943470 ICD Code: F17.200 - NICOTINE DEPENDENCE, UNSPECIFIED, UNCOMPLICATED Status : Acute Current Visit: Yes (6) Obesity SNOMED Code(s): 957300195, 101364249 ICD Code: E66.9 - OBESITY, UNSPECIFIED Status: Acute Current Visit: Yes Qualifiers: Obesity type: due to excess calories Obesity classification: adult class 3 (BMI >= 40) Body mass index: BMI 40.0-44.9 (7) Acute exacerbation of chronic obstructive pulmonary disease (COPD) SNOMED Code(s): 313796328 ICD Code: J44.1 - CHRONIC OBSTRUCTIVE PULMONARY DISEASE W (ACUTE) EXACERBATION Status: Acute Priority: High Current Visit: No (8) Pneumonia SNOMED Code(s): 026850896 ICD Code: J18.9 - PNEUMONIA, UNSPECIFIED ORGANISM Status: Acute Current Visit: No Qualifiers: Pneumonia type: due to unspecified organism Laterality: right Lung location: upper lobe of lung Qualified Code(s): J18.1 - Lobar pneumonia, unspecified organism Problem List Initiated/Reviewed/Updated: Yes Orders Last 24hrs: Active Orders 24 hr Category Date Time Status Patient Status [ADT] Routine ADT 07/26/18 21:54 Ordered Cardiac Monitoring [RC] CONTINUOUS Care 07/26/18 21:55 Ordered Height and Weight [RC] DAILY Care 07/26/18 21:53 Ordered Intake and Output [RC] QSHIFT Care 07/26/18 21:55 Ordered Oxygen Therapy [RC] PRN Care 07/26/18 21:54 Ordered Up ad [place] [RC] ASDIRECTED Care 07/26/18 21:53 Ordered VTE/DVT Education [RC] PER UNIT ROUTINE Care 07/26/18 21:54 Ordered Vital Signs [RC] Q4H Care 07/26/18 21:54 Ordered Chest wo Cont [CT] Routine Exams 07/26/18 22:08 Ordered BASIC METABOLIC PANEL,BMP [CHEM] Routine Lab 07/26/18 21:59 Ordered BASIC METABOLIC PANEL,BMP [CHEM] Routine Lab 07/26/18 22:15 Ordered CBC W/O DIFF,HEMOGRAM [HEME] AM Lab 07/27/18 05:11 Ordered CULTURE BLOOD [BC] Stat Lab 07/26/18 22:00 Ordered CULTURE BLOOD [BC] Stat Lab 07/26/18 22:00 Ordered MAGNESIUM [CHEM] Routine Lab 07/26/18 22:00 Ordered OSMOLALITY - SERUM [REF] Routine Lab 07/26/18 22:07 Ordered OSMOLALITY - URINE Routine Lab 07/26/18 22:07 Ordered PHOSPHORUS [CHEM] Routine Lab 07/26/18 22:00 Ordered SODIUM,URINE RANDOM [URCHEM] Routine Lab 07/26/18 22:07 Ordered Acetaminophen [Tylenol] Med 07/26/18 21:53 Ordered 650 mg PO Q4H PRN Bisacodyl [Dulcolax] Med 07/26/18 21:53 Ordered 5 mg PO DAILY PRN Docusate Sodium [Colace] Med 07/26/18 21:53 Ordered 100 mg PO BID PRN Docusate Sodium/Sennosides [Senna Plus] Med 07/26/18 21:53 Ordered 1 tab PO BEDTIME PRN Enoxaparin [Lovenox] Med 07/27/18 09:00 Ordered 40 mg SUBCUT DAILY Heparin Sodium Med 07/26/18 22:00 Ordered 5,000 units SUBCUT Q8HR Ibuprofen [Motrin] Med 07/26/18 21:53 Ordered 600 mg PO Q6H PRN Magnesium Hydroxide [Milk of Magnesia] Med 07/26/18 21:53 Ordered 30 ml PO Q12H PRN Ondansetron [Zofran ODT] Med 07/26/18 21:53 Ordered 4 mg PO Q6H PRN Ondansetron [Zofran] Med 07/26/18 21:53 Ordered 4 mg IVPUSH Q6H PRN Polyethylene Glycol 3350 [MiraLAX] Med 07/26/18 21:53 Ordered 17 gm PO DAILY PRN Promethazine [Phenergan] Med 07/26/18 21:53 Ordered 25 mg PO Q6H PRN Sodium Chloride 0.9% [Normal Saline] 1,000 ml Med 07/26/18 22:00 Ordered IV ASDIRECTED Blood Culture x2 Reflex Set [OM.PC] Stat Oth 07/26/18 22:00 Ordered Resuscitation Status Routine Resus Stat 07/26/18 21:53 Ordered Medication Orders Acetaminophen (Tylenol) 650 mg PO Q4H PRN PRN Reason: Pain Bisacodyl (Dulcolax) 5 mg PO DAILY PRN PRN Reason: Constipation Docusate Sodium (Colace) 100 mg PO BID PRN PRN Reason: Constipation Enoxaparin Sodium (Lovenox) 40 mg SUBCUT DAILY MICHELLE Heparin Sodium (Porcine) (Heparin Sodium) 5,000 units SUBCUT Q8HR MICHELLE Sodium Chloride (Normal Saline) 1,000 mls @ 100 mls/hr IV ASDIRECTED MICHELLE Stop: 07/27/18 08:01 Ibuprofen (Motrin) 600 mg PO Q6H PRN PRN Reason: Pain Magnesium Hydroxide (Milk Of Magnesia) 30 ml PO Q12H PRN PRN Reason: Constipation Ondansetron HCl (Zofran Odt) 4 mg PO Q6H PRN PRN Reason: nausea, able to take PO Ondansetron HCl (Zofran) 4 mg IVPUSH Q6H PRN PRN Reason: Nausea/Vomiting Polyethylene Glycol (Miralax) 17 gm PO DAILY PRN PRN Reason: Constipation Promethazine HCl (Phenergan) 25 mg PO Q6H PRN PRN Reason: nausea, able to take PO Senna/Docusate Sodium (Senna Plus) 1 tab PO BEDTIME PRN PRN Reason: Constipation Assessment/Plan Comment:: #Severe Sepsis + RUL Pneumonia: patient with cough with yellowish sputum production concerning for pneumonia. She is tachycardic, has significant leukocytosis. - Monitor on tele - Obtain Blood culture x2 - Start Vancomycin and Zosyn; allergic to Levaquin. - Monitor CBC - CT chest to better delineate lung lesion. #Acute respiratory failure with hypoxia: saturating 86-88% on room air. Improved to 90s with 4l of O2 via NC. - Supplemental O2 titrate to SpO2 of >92%. # Hyponatremia: probably SIADH but cannot rule out other etiologies - Obtain serum and urine osm - Urine sodium - BMP q6 hours - 1500 cc daily fluid restriction if SIADH. - Gentle IV F for now. # Hypokalemia: - Mild, - give 40 mEq of KCl - Check mag and phos # Tobacco use disorder: - Counseling provided. - Declined nicotine patch #Hypothyroidism: - Resume home synthroid #COPD: probable exacerbation - Antibiotics as above. - Hold steroids for now so trend of leukocytosis can be determined. - Continue home inhalers. - Add duonebs. #Obesity: - Weight loss counseling. DVT PPx: Lovenox. GI ppx: regular diet.
[2018-07-26] MEDS ORDERED: Heparin Sodium 5,000 Units/ML Vial SUBCUT ONE (22:26)
[2018-07-26 22:53] LABS: ANION GAP 16.3
[2018-07-27] MEDS: Piperacillin/Tazobactam 3.375 GM in Sodium Chloride 0.9% 100 ML IV SCH ×4 (00:37→17:59)
[2018-07-27 06:52] LABS: ANION GAP 14.9; CHLORIDE,CL 94 mmol/L (101-111); SODIUM,NA 129 mmol/L (135-145)
[2018-07-27] MEDS ORDERED: Magnesium Sulfate/Water 2 GM in Premix Bag 1 BAG IV ONE (08:21)
[2018-07-27] MEDS: Phosphorus #1 250 MG Tab PO SCH ×4 (08:53→20:57)
[2018-07-27] MEDS: Enoxaparin 40 MG/0.4 ML Syringe SUBCUT SCH (08:54)
[2018-07-27] MEDS: Potassium Chloride 10 MEQ in Premix Bag 1 BAG IV SCH ×4 (09:01→15:23)
[2018-07-27] MEDS: Albuterol 6.7 GM Inhaler INH SCH ×2 (10:48→17:59)
[2018-07-27] MEDS: Tiotropium Inhaler 18 MCG Inhalation Powder Cap Kit of 5 INH SCH (10:49)
[2018-07-27] MEDS: Sodium Chloride 0.9% 10 ML Syringe FLUSH PRN ×2 (13:44→18:45)
--- NOTE | 2018-07-27 14:57 | PCM.PN ---
- General Info Date of Service: 07/27/18 Admission Dx/Problem (Free Text): Admission Diagnosis/Problem Admission Diagnosis/Problem Severe sepsis Subjective Update: No acute events overnight. Reports that she is doing okay. still has cough with clear sputum production. Had episodes of fever overnight. Denies shortness of breath, n/v/d/c, chest pain, or any new symptoms. - Review of Systems General: Reports: Fever HEENT: Reports: No Symptoms Pulmonary: Reports: Cough, Sputum (Clear) Cardiovascular: Reports: No Symptoms Gastrointestinal: Reports: No Symptoms Genitourinary: Reports: No Symptoms Musculoskeletal: Reports: No Symptoms Skin: Reports: No Symptoms Neurological: Reports: No Symptoms Psychiatric: Reports: No Symptoms - Patient Data Vitals - Most Recent: Last Vital Signs Temp 98.9 F 07/27/18 11:50 Pulse 99 07/27/18 11:50 Resp 20 07/27/18 11:50 BP 104/61 07/27/18 11:50 Pulse Ox 99 07/27/18 11:50 Weight - Most Recent: 253 lb 12.8 oz I&O - Last 24 Hours: Intake & Output 07/26/18 07/27/18 07/27/18 22:59 06:59 14:59 Intake Total 895 520 5198 Output Total 1400 Balance 300 -750 1731 Lab Results Last 24 Hours: Laboratory Results - last 24 hr 07/26/18 07/26/18 07/26/18 Range/Units 19:40 19:40 19:40 WBC 29.4 H* (5.0-10.0) 10^3/uL RBC 4.96 (4.2-5.4) 10^6/uL Hgb 15.1 (12.0-16.0) g/dL Hct 45.2 (37.0-47.0) % MCV 91.1 D (80-100) fL MCH 30.4 (27.0-34.0) pg MCHC 33.4 (33.0-35.0) g/dL Plt Count 137 L D (150-450) 10^3/uL Neut % (Auto) 89.0 H (42.2-75.2) % Lymph % (Auto) 5.1 L (20.5-50.1) % Scott % (Auto) 5.8 (2-8) % Eos % (Auto) 0.0 L (1.0-3.0) % Baso % (Auto) 0.1 (0.0-1.0) % Add Manual Diff Yes Neutrophils % (Manual) 71 (42-75) % Band Neutrophils % 20 % Lymphocytes % (Manual) 3 L (20-50) % Atypical Lymphs % 0 % Monocytes % (Manual) 6 (2-8) % Eosinophils % (Manual) 0 L (1-3) % Basophils % (Manual) 0 Anisocytosis 1+ slight Sodium 123 L D (135-145) mmol/L Potassium 3.5 L (3.6-5.0) mmol/L Chloride 86 L D (101-111) mmol/L Carbon Dioxide 24.0 D (21.0-31.0) mmol/L Anion Gap 16.5 BUN 23 H (7-18) mg/dL Creatinine 1.1 (0.6-1.3) mg/dL Est Cr Clr Drug Dosing 49.64 mL/min Estimated GFR (MDRD) 50 BUN/Creatinine Ratio 20.90 Glucose 120 H (74-105) mg/dL Lactic Acid 2.0 (0.5-2.2) mmol/L Calcium 7.8 L (8.4-10.2) mg/dl Phosphorus (2.5-4.6) mg/dL Magnesium (1.8-2.5) mg/dL Total Bilirubin 1.1 H (0.2-1.0) mg/dL AST 34 (10-42) IU/L ALT 18 (10-60) IU/L Alkaline Phosphatase 61 (42-121) IU/L Total Protein 7.3 (6.7-8.2) g/dl Albumin 3.5 (3.2-5.5) g/dl Globulin 3.8 Albumin/Globulin Ratio 0.92 Ur Random Sodium (40-220) mmol/L 07/26/18 07/26/18 07/27/18 Range/Units 22:00 22:20 05:30 WBC (5.0-10.0) 10^3/uL RBC (4.2-5.4) 10^6/uL Hgb (12.0-16.0) g/dL Hct (37.0-47.0) % MCV (80-100) fL MCH (27.0-34.0) pg MCHC (33.0-35.0) g/dL Plt Count (150-450) 10^3/uL Neut % (Auto) (42.2-75.2) % Lymph % (Auto) (20.5-50.1) % Scott % (Auto) (2-8) % Eos % (Auto) (1.0-3.0) % Baso % (Auto) (0.0-1.0) % Add Manual Diff Neutrophils % (Manual) (42-75) % Band Neutrophils % % Lymphocytes % (Manual) (20-50) % Atypical Lymphs % % Monocytes % (Manual) (2-8) % Eosinophils % (Manual) (1-3) % Basophils % (Manual) Anisocytosis Sodium 123 L 129 L (135-145) mmol/L Potassium 3.3 L 2.9 L (3.6-5.0) mmol/L Chloride 87 L 94 L (101-111) mmol/L Carbon Dioxide 23.0 23.0 (21.0-31.0) mmol/L Anion Gap 16.3 14.9 BUN 24 H 21 H (7-18) mg/dL Creatinine 1.0 0.9 (0.6-1.3) mg/dL Est Cr Clr Drug Dosing 54.60 60.67 mL/min Estimated GFR (MDRD) 56 > 60 BUN/Creatinine Ratio Glucose 115 H 110 H (74-105) mg/dL Lactic Acid (0.5-2.2) mmol/L Calcium 7.3 L 7.3 L (8.4-10.2) mg/dl Phosphorus 2.6 (2.5-4.6) mg/dL Magnesium 1.5 L (1.8-2.5) mg/dL Total Bilirubin (0.2-1.0) mg/dL AST (10-42) IU/L ALT (10-60) IU/L Alkaline Phosphatase (42-121) IU/L Total Protein (6.7-8.2) g/dl Albumin (3.2-5.5) g/dl Globulin Albumin/Globulin Ratio Ur Random Sodium < 10 L (40-220) mmol/L 07/27/18 07/27/18 Range/Units 05:30 05:30 WBC 19.5 H (5.0-10.0) 10^3/uL RBC 4.48 (4.2-5.4) 10^6/uL Hgb 13.9 (12.0-16.0) g/dL Hct 41.2 (37.0-47.0) % MCV 92.0 (80-100) fL MCH 31.0 (27.0-34.0) pg MCHC 33.7 (33.0-35.0) g/dL Plt Count 137 L (150-450) 10^3/uL Neut % (Auto) (42.2-75.2) % Lymph % (Auto) (20.5-50.1) % Scott % (Auto) (2-8) % Eos % (Auto) (1.0-3.0) % Baso % (Auto) (0.0-1.0) % Add Manual Diff Neutrophils % (Manual) (42-75) % Band Neutrophils % % Lymphocytes % (Manual) (20-50) % Atypical Lymphs % % Monocytes % (Manual) (2-8) % Eosinophils % (Manual) (1-3) % Basophils % (Manual) Anisocytosis Sodium (135-145) mmol/L Potassium (3.6-5.0) mmol/L Chloride (101-111) mmol/L Carbon Dioxide (21.0-31.0) mmol/L Anion Gap BUN (7-18) mg/dL Creatinine (0.6-1.3) mg/dL Est Cr Clr Drug Dosing mL/min Estimated GFR (MDRD) BUN/Creatinine Ratio Glucose (74-105) mg/dL Lactic Acid (0.5-2.2) mmol/L Calcium (8.4-10.2) mg/dl Phosphorus (2.5-4.6) mg/dL Magnesium (1.8-2.5) mg/dL Total Bilirubin (0.2-1.0) mg/dL AST (10-42) IU/L ALT (10-60) IU/L Alkaline Phosphatase (42-121) IU/L Total Protein (6.7-8.2) g/dl Albumin 3.0 L (3.2-5.5) g/dl Globulin Albumin/Globulin Ratio Ur Random Sodium (40-220) mmol/L Hussein Results Last 24 Hours: Microbiology 07/26/18 19:40 Anaerobic Blood Culture - Final Blood - Venous Med Orders - Current: Current Medications Acetaminophen (Tylenol) 650 mg PO Q4H PRN PRN Reason: Pain Albuterol (Proventil Hfa) 0 gm INH BIDRT [facility] Last Admin: 07/27/18 10:48 Dose: 1 puff Bisacodyl (Dulcolax) 5 mg PO DAILY PRN PRN Reason: Constipation Docusate Sodium (Colace) 100 mg PO BID PRN PRN Reason: Constipation Enoxaparin Sodium (Lovenox) 40 mg SUBCUT DAILY [facility] Last Admin: 07/27/18 08:54 Dose: 40 mg Piperacillin Sod/Tazobactam (Sod 3.375 gm/ Sodium Chloride) 100 mls @ 200 mls/ hr IV Q6H [facility] Last Infusion: 07/27/18 13:44 Dose: Infused Vancomycin HCl 1.25 gm/ Sodium (Chloride) 250 mls @ 166.667 mls/hr IV Q12H [facility] Last Admin: 07/27/18 11:30 Dose: 166.667 mls/hr Ibuprofen (Motrin) 600 mg PO Q6H PRN PRN Reason: Pain Levothyroxine Sodium (Levothyroxine) 75 mcg PO ACBREAKFAST [facility] Magnesium Hydroxide (Milk Of Magnesia) 30 ml PO Q12H PRN PRN Reason: Constipation Montelukast Sodium (Singulair) 10 mg PO BEDTIME [facility] Ondansetron HCl (Zofran Odt) 4 mg PO Q6H PRN PRN Reason: nausea, able to take PO Ondansetron HCl (Zofran) 4 mg IVPUSH Q6H PRN PRN Reason: Nausea/Vomiting Formoterol/Mometasone 200-5 Mcg 8.8 Gm Inhaler Own Med 0 each PO BIDRT [facility] Polyethylene Glycol (Miralax) 17 gm PO DAILY PRN PRN Reason: Constipation Promethazine HCl (Phenergan) 25 mg PO Q6H PRN PRN Reason: nausea, able to take PO Senna/Docusate Sodium (Senna Plus) 1 tab PO BEDTIME PRN PRN Reason: Constipation Sodium Chloride (Saline Flush) 10 ml FLUSH ASDIRECTED PRN PRN Reason: Keep Vein Open Last Admin: 07/27/18 13:44 Dose: 10 ml Sodium Phosphate (Neutra-Phos) 250 mg PO QID [facility] Stop: 07/27/18 21:01 Last Admin: 07/27/18 13:39 Dose: 250 mg Tiotropium [place] (Spiriva Handihaler) 18 mcg INH DAILYRT [facility] Last Admin: 07/27/18 10:49 Dose: 18 mcg Vancomycin HCl (Pharmacy To Dose - Vancomycin) 1 dose .XX ASDIRECTED [facility] Discontinued Medications Heparin Sodium (Porcine) (Heparin Sodium) 5,000 units SUBCUT ONETIME ONE Stop: 07/26/18 22:27 Last Admin: 07/26/18 23:11 Dose: 5,000 units Sodium Chloride (Normal Saline) 1,000 mls @ 100 mls/hr IV ASDIRECTED [facility] Stop: 07/27/18 08:01 Last Admin: 07/26/18 23:08 Dose: 100 mls/hr Potassium Chloride 10 meq/ (Premix) 100 mls @ 100 mls/hr IV Q1H [facility] Stop: 07/27/18 12:59 Last Admin: 07/27/18 13:18 Dose: 50 mls/hr Magnesium Sulfate 2 gm/ Premix 50 mls @ 25 mls/hr IV ONETIME ONE Stop: 07/27/18 10:20 Last Infusion: 07/27/18 10:47 Dose: Infused Budesonide/Formoterol [ Symbicort 80-4.5 Mcg ] 1 Puff 1 puff INH BID [facility] - Exam General: Alert, Oriented HEENT: Pupils Equal, Pupils Reactive, Mucous Membr. Moist/[place] Neck: Supple Lungs: Clear to Auscultation, Normal Respiratory Effort Cardiovascular: Regular Rate, Regular Rhythm GI/Abdominal Exam: Normal Bowel Sounds, Soft, Non-Tender, No Distention, Other ( Abdominal adiposity) Extremities: Normal Inspection, Non-Tender, No Pedal Edema Peripheral Pulses: 2+: Radial (L), Radial (R), Dorsalis Pedis (L), Dorsalis Pedis (R) Skin: Warm, Dry, Intact Neurological: No New Focal Deficit Psy/Mental Status: Alert, Normal Affect, Normal Mood - Problem List & Annotations (1) Acute respiratory failure with hypoxia SNOMED Code(s): 71153018, 383359126 Code(s): J96.01 - ACUTE RESPIRATORY FAILURE WITH HYPOXIA Status: Acute Priority: High Current Visit: Yes (2) Hyponatremia SNOMED Code(s): 28273565 Code(s): E87.1 - HYPO-OSMOLALITY AND HYPONATREMIA Status: Acute Priority : High Current Visit: Yes (3) Hypokalemia SNOMED Code(s): 81136649 Code(s): E87.6 - HYPOKALEMIA Status: Acute Priority: Medium Current Visit: Yes (4) Severe sepsis SNOMED Code(s): 87265111 Code(s): A41.9 - SEPSIS, UNSPECIFIED ORGANISM; R65.20 - SEVERE SEPSIS WITHOUT SEPTIC SHOCK Status: Acute Priority: High Current Visit: Yes (5) Tobacco use disorder SNOMED Code(s): 676834840 Code(s): F17.200 - NICOTINE DEPENDENCE, UNSPECIFIED, UNCOMPLICATED Status: Acute Current Visit: Yes (6) Obesity SNOMED Code(s): 526695721, 687361575 Code(s): E66.9 - OBESITY, UNSPECIFIED Status: Acute Current Visit: Yes Qualifiers: Obesity type: due to excess calories Obesity classification: adult class 3 (BMI >= 40) Body mass index: BMI 40.0-44.9 (7) Acute exacerbation of chronic obstructive pulmonary disease (COPD) SNOMED Code(s): 920509040 Code(s): J44.1 - CHRONIC OBSTRUCTIVE PULMONARY DISEASE W (ACUTE) EXACERBATION Status: Acute Priority: High Current Visit: No (8) Pneumonia SNOMED Code(s): 699626616 Code(s): J18.9 - PNEUMONIA, UNSPECIFIED ORGANISM Status: Acute Current Visit: No Qualifiers: Pneumonia type: due to unspecified organism Laterality: right Lung location: upper lobe of lung Qualified Code(s): J18.1 - Lobar pneumonia, unspecified organism - Problem List Review Problem List Initiated/Reviewed/Updated: Yes - My Orders Last 24 Hours: My Active Orders 07/26/18 19:40 CULTURE BLOOD [BC] Stat 07/26/18 21:53 Height and Weight [RC] 0600 Up ad Monica [RC] ASDIRECTED Acetaminophen [Tylenol] 650 mg PO Q4H PRN Bisacodyl [Dulcolax] 5 mg PO DAILY PRN Docusate Sodium [Colace] 100 mg PO BID PRN Docusate Sodium/Sennosides [Senna Plus] 1 tab PO BEDTIME PRN Ibuprofen [Motrin] 600 mg PO Q6H PRN Magnesium Hydroxide [Milk of Magnesia] 30 ml PO Q12H PRN Ondansetron [Zofran ODT] 4 mg PO Q6H PRN Ondansetron [Zofran] 4 mg IVPUSH Q6H PRN Polyethylene Glycol 3350 [MiraLAX] 17 gm PO DAILY PRN Promethazine [Phenergan] 25 mg PO Q6H PRN Resuscitation Status Routine 07/26/18 21:54 Patient Status [ADT] Routine Oxygen Therapy [RC] PRN VTE/DVT Education [RC] PER UNIT ROUTINE Vital Signs [RC] 00,04,08,12,16,20 07/26/18 21:55 Cardiac Monitoring [RC] 09,21 Intake and Output [RC] QSHIFT 07/26/18 22:00 OSMOLALITY - URINE Routine Blood Culture x2 Reflex Set [OM.PC] Stat 07/26/18 22:20 CULTURE BLOOD [BC] Stat OSMOLALITY - SERUM [REF] Routine 07/26/18 23:15 Pharmacy to Dose - Vancomycin 1 dose .XX ASDIRECTED 07/26/18 23:30 Vancomycin 1.25 gm Sodium Chloride 0.9% [Normal Saline] 250 ml IV Q12H 07/27/18 00:00 Piperacillin/Tazobactam [Zosyn] 3.375 gm Sodium Chloride 0.9% [Normal Saline] 100 ml IV Q6H 07/27/18 09:00 Enoxaparin [Lovenox] 40 mg SUBCUT DAILY Phosphorus #1 [Neutra-Phos] 250 mg PO QID 07/27/18 11:00 Albuterol [Proventil HFA] 0 gm INH BIDRT Tiotropium [Spiriva HandiHaler] 18 mcg INH DAILYRT 07/27/18 11:27 Sodium Chloride 0.9% [Saline Flush] 10 ml FLUSH ASDIRECTED PRN 07/27/18 18:00 Patient's Own Medication [Ptom] 0 each PO BIDRT 07/27/18 21:00 Montelukast [Singulair] 10 mg PO BEDTIME 07/27/18 Breakfast Fluid Restriction [DIET] Regular Diet [DIET] 07/28/18 06:00 Levothyroxine 75 mcg PO ACBREAKFAST - Plan Plan:: #Severe Sepsis + RUL Pneumonia: patient with cough with yellowish sputum production concerning for pneumonia. She is tachycardic, has significant leukocytosis. - Monitor on tele - Obtain Blood culture x2 - Start Vancomycin and Zosyn; allergic to Levaquin. - Monitor CBC - CT chest to better delineate lung lesion. #Acute respiratory failure with hypoxia: saturating 86-88% on room air. Improved to 90s with 4l of O2 via NC. - Supplemental O2 titrate to SpO2 of >92%. # Hyponatremia: Imrpoved with 1 liter of NS over 1 hour. Na now 129; increased from 123 on presentation. probably SIADH but cannot rule out other etiologies - Follow up on serum and urine osm - Urine sodium - BMP q6 hours - 1500 cc daily fluid restriction if SIADH. - Hold IVF for now in order not to over-correct Na. # Hypokalemia: - Mild, - give 40 mEq of KCl #Hypomagnesemia: - IV mag sulfate. - Monitor and replete # Tobacco use disorder: - Counseling provided. - Declined nicotine patch #Hypothyroidism: - Resume home synthroid #COPD: probable exacerbation - Antibiotics as above. - Hold steroids for now so trend of leukocytosis can be determined. - Continue home inhalers. - Add duonebs. #Obesity: - Weight loss counseling. # Thromobocytopenia: Stable. - Monitor platelets. DVT PPx: Lovenox. GI ppx: regular diet.
[2018-07-27] MEDS: MOMETASONE PO SCH (18:01)
[2018-07-27] MEDS: FORMOTEROL PO SCH (18:01)
[2018-07-27 19:43] LABS: ANION GAP 11.7; CHLORIDE,CL 100 mmol/L (101-111); SODIUM,NA 133 mmol/L (135-145)
[2018-07-27] MEDS: Montelukast 10 MG Tab PO SCH (20:57)
[2018-07-27] MEDS ORDERED: FORMOTEROL INH SCH (21:00)
[2018-07-27] MEDS ORDERED: BUDESONIDE INH SCH (21:00)
[2018-07-28] MEDS: Piperacillin/Tazobactam 3.375 GM in Sodium Chloride 0.9% 100 ML IV SCH ×4 (00:41→18:10)
[2018-07-28] MEDS: Levothyroxine 75 MCG Tab PO SCH (05:24)
[2018-07-28 06:39] LABS: ANION GAP 11.7; CHLORIDE,CL 103 mmol/L (101-111); SODIUM,NA 137 mmol/L (135-145)
[2018-07-28] MEDS: Albuterol 6.7 GM Inhaler INH SCH ×2 (08:12→18:09)
[2018-07-28] MEDS: FORMOTEROL PO SCH ×2 (08:12→18:09)
[2018-07-28] MEDS: MOMETASONE PO SCH ×2 (08:12→18:09)
[2018-07-28] MEDS: Tiotropium Inhaler 18 MCG Inhalation Powder Cap Kit of 5 INH SCH (08:13)
[2018-07-28] MEDS ORDERED: Phosphorus #1 250 MG Tab PO ONE (08:45)
--- NOTE | 2018-07-28 08:46 | PCM.PN ---
- General Info Date of Service: 07/28/18 Admission Dx/Problem (Free Text): Admission Diagnosis/Problem Admission Diagnosis/Problem Severe sepsis Subjective Update: Patient reports blood-tinged sputum overnight. Reports that she is breathing better but is needing walker to ambulate, which is a change from her baseline. Has right sided-muscle pain, worse with deep breathing. Was afebrile. Denies shortness of breath, n/v/d/c, chest pain, or any new symptoms. - Review of Systems General: Reports: Weakness HEENT: Reports: No Symptoms Pulmonary: Reports: Cough (Blood-tinged. ) Cardiovascular: Reports: No Symptoms Gastrointestinal: Reports: No Symptoms Genitourinary: Reports: No Symptoms Musculoskeletal: Reports: No Symptoms Skin: Reports: No Symptoms Neurological: Reports: No Symptoms Psychiatric: Reports: No Symptoms - Patient Data Vitals - Most Recent: Last Vital Signs Temp 97.6 F 07/28/18 08:00 Pulse 78 07/28/18 08:00 Resp 16 07/28/18 08:00 BP 97/57 L 07/28/18 08:00 Pulse Ox 95 07/28/18 08:00 Weight - Most Recent: 255 lb 6.4 oz I&O - Last 24 Hours: Intake & Output 07/27/18 07/28/18 07/28/18 22:59 06:59 14:59 Intake Total 1284 350 Output Total 1100 Balance 184 350 Lab Results Last 24 Hours: Laboratory Results - last 24 hr 07/26/18 07/26/18 07/27/18 Range/Units 22:00 22:20 19:05 WBC (5.0-10.0) 10^3/uL RBC (4.2-5.4) 10^6/uL Hgb (12.0-16.0) g/dL Hct (37.0-47.0) % MCV (80-100) fL MCH (27.0-34.0) pg MCHC (33.0-35.0) g/dL Plt Count (150-450) 10^3/uL Sodium 133 L (135-145) mmol/L Potassium 3.7 (3.6-5.0) mmol/L Chloride 100 L (101-111) mmol/L Carbon Dioxide 25.0 (21.0-31.0) mmol/L Anion Gap 11.7 BUN 18 (7-18) mg/dL Creatinine 0.9 (0.6-1.3) mg/dL Est Cr Clr Drug Dosing 60.67 mL/min Estimated GFR (MDRD) > 60 Glucose 131 H (74-105) mg/dL Serum Osmolality 265 L (275-295) mosm/kg Calcium 7.2 L (8.4-10.2) mg/dl Phosphorus (2.5-4.6) mg/dL Magnesium (1.8-2.5) mg/dL Urine Osmolality 642 (300-900) mosm/kg 07/28/18 07/28/18 Range/Units 05:50 05:50 WBC 8.5 (5.0-10.0) 10^3/uL RBC 4.20 (4.2-5.4) 10^6/uL Hgb 12.7 (12.0-16.0) g/dL Hct 39.3 (37.0-47.0) % MCV 93.6 (80-100) fL MCH 30.2 (27.0-34.0) pg MCHC 32.3 L (33.0-35.0) g/dL Plt Count 150 (150-450) 10^3/uL Sodium 137 (135-145) mmol/L Potassium 3.7 (3.6-5.0) mmol/L Chloride 103 (101-111) mmol/L Carbon Dioxide 26.0 (21.0-31.0) mmol/L Anion Gap 11.7 BUN 14 (7-18) mg/dL Creatinine 0.7 (0.6-1.3) mg/dL Est Cr Clr Drug Dosing 78.01 mL/min Estimated GFR (MDRD) > 60 Glucose 103 (74-105) mg/dL Serum Osmolality (275-295) mosm/kg Calcium 7.4 L (8.4-10.2) mg/dl Phosphorus 2.1 L (2.5-4.6) mg/dL Magnesium 2.4 (1.8-2.5) mg/dL Urine Osmolality (300-900) mosm/kg Hussein Results Last 24 Hours: Microbiology 07/26/18 22:20 Aerobic Blood Culture - Preliminary Blood - Venous - Lab Draw NO GROWTH AFTER 1 DAY Anaerobic Blood Culture - Preliminary NO GROWTH AFTER 1 DAY 07/26/18 19:40 Aerobic Blood Culture - Preliminary Blood - Venous NO GROWTH AFTER 1 DAY Anaerobic Blood Culture - Final Med Orders - Current: Current Medications Acetaminophen (Tylenol) 650 mg PO Q4H PRN PRN Reason: Pain Albuterol (Proventil Hfa) 0 gm INH BIDRT [facility] Last Admin: 07/28/18 08:12 Dose: Not Given Bisacodyl (Dulcolax) 5 mg PO DAILY PRN PRN Reason: Constipation Docusate Sodium (Colace) 100 mg PO BID PRN PRN Reason: Constipation Enoxaparin Sodium (Lovenox) 40 mg SUBCUT DAILY [facility] Last Admin: 07/27/18 08:54 Dose: 40 mg Piperacillin Sod/Tazobactam (Sod 3.375 gm/ Sodium Chloride) 100 mls @ 200 mls/ hr IV Q6H [facility] Last Admin: 07/28/18 05:33 Dose: 200 mls/hr Vancomycin HCl 1.25 gm/ Sodium (Chloride) 250 mls @ 166.667 mls/hr IV Q12H [facility] Last Admin: 07/27/18 23:08 Dose: 166.667 mls/hr Ibuprofen (Motrin) 600 mg PO Q6H PRN PRN Reason: Pain Levothyroxine Sodium (Levothyroxine) 75 mcg PO ACBREAKFAST [facility] Last Admin: 07/28/18 05:24 Dose: 75 mcg Magnesium Hydroxide (Milk Of Magnesia) 30 ml PO Q12H PRN PRN Reason: Constipation Montelukast Sodium (Singulair) 10 mg PO BEDTIME [facility] Last Admin: 07/27/18 20:57 Dose: 10 mg Ondansetron HCl (Zofran Odt) 4 mg PO Q6H PRN PRN Reason: nausea, able to take PO Ondansetron HCl (Zofran) 4 mg IVPUSH Q6H PRN PRN Reason: Nausea/Vomiting Formoterol/Mometasone 200-5 Mcg 8.8 Gm Inhaler Own Med 0 each PO BIDRT [facility] Last Admin: 07/28/18 08:12 Dose: 1 each Polyethylene Glycol (Miralax) 17 gm PO DAILY PRN PRN Reason: Constipation Promethazine HCl (Phenergan) 25 mg PO Q6H PRN PRN Reason: nausea, able to take PO Senna/Docusate Sodium (Senna Plus) 1 tab PO BEDTIME PRN PRN Reason: Constipation Sodium Chloride (Saline Flush) 10 ml FLUSH ASDIRECTED PRN PRN Reason: Keep Vein Open Last Admin: 07/27/18 18:45 Dose: 10 ml Sodium Phosphate (Neutra-Phos) 500 mg PO ONETIME ONE Stop: 07/28/18 08:46 Tiotropium [place] (Spiriva Handihaler) 18 mcg INH DAILYRT [facility] Last Admin: 07/28/18 08:13 Dose: 18 mcg Vancomycin HCl (Pharmacy To Dose - Vancomycin) 1 dose .XX ASDIRECTED [facility] Discontinued Medications Heparin Sodium (Porcine) (Heparin Sodium) 5,000 units SUBCUT ONETIME ONE Stop: 07/26/18 22:27 Last Admin: 07/26/18 23:11 Dose: 5,000 units Sodium Chloride (Normal Saline) 1,000 mls @ 100 mls/hr IV ASDIRECTED [facility] Stop: 07/27/18 08:01 Last Admin: 07/26/18 23:08 Dose: 100 mls/hr Potassium Chloride 10 meq/ (Premix) 100 mls @ 100 mls/hr IV Q1H [facility] Stop: 07/27/18 12:59 Last Infusion: 07/27/18 17:29 Dose: Infused Magnesium Sulfate 2 gm/ Premix 50 mls @ 25 mls/hr IV ONETIME ONE Stop: 07/27/18 10:20 Last Infusion: 07/27/18 10:47 Dose: Infused Budesonide/Formoterol [ Symbicort 80-4.5 Mcg ] 1 Puff 1 puff INH BID [facility] Sodium Phosphate (Neutra-Phos) 250 mg PO QID [facility] Stop: 07/27/18 21:01 Last Admin: 07/27/18 20:57 Dose: 250 mg - Exam General: Alert, Oriented, Cooperative, No Acute Distress HEENT: Pupils Equal, Mucous Membr. Moist/[place] Neck: Supple Lungs: Clear to Auscultation, Normal Respiratory Effort Cardiovascular: Regular Rate, Regular Rhythm GI/Abdominal Exam: Normal Bowel Sounds, Soft, Non-Tender, Other (Abdominal adiposity) Extremities: Normal Inspection, Non-Tender, No Pedal Edema Peripheral Pulses: 2+: Radial (L), Radial (R), Dorsalis Pedis (L), Dorsalis Pedis (R) Skin: Warm, Intact Neurological: No New Focal Deficit Psy/Mental Status: Alert, Normal Affect, Normal Mood - Problem List & Annotations (1) Acute respiratory failure with hypoxia SNOMED Code(s): 26981978, 225995231 Code(s): J96.01 - ACUTE RESPIRATORY FAILURE WITH HYPOXIA Status: Acute Priority: High Current Visit: Yes (2) Hyponatremia SNOMED Code(s): 04866677 Code(s): E87.1 - HYPO-OSMOLALITY AND HYPONATREMIA Status: Acute Priority : High Current Visit: Yes (3) Hypokalemia SNOMED Code(s): 27970706 Code(s): E87.6 - HYPOKALEMIA Status: Acute Priority: Medium Current Visit: Yes (4) Severe sepsis SNOMED Code(s): 20984782 Code(s): A41.9 - SEPSIS, UNSPECIFIED ORGANISM; R65.20 - SEVERE SEPSIS WITHOUT SEPTIC SHOCK Status: Acute Priority: High Current Visit: Yes (5) Tobacco use disorder SNOMED Code(s): 666085391 Code(s): F17.200 - NICOTINE DEPENDENCE, UNSPECIFIED, UNCOMPLICATED Status: Acute Current Visit: Yes (6) Obesity SNOMED Code(s): 776632038, 266495717 Code(s): E66.9 - OBESITY, UNSPECIFIED Status: Acute Current Visit: Yes Qualifiers: Obesity type: due to excess calories Obesity classification: adult class 3 (BMI >= 40) Body mass index: BMI 40.0-44.9 (7) Acute exacerbation of chronic obstructive pulmonary disease (COPD) SNOMED Code(s): 736536751 Code(s): J44.1 - CHRONIC OBSTRUCTIVE PULMONARY DISEASE W (ACUTE) EXACERBATION Status: Acute Priority: High Current Visit: No (8) Pneumonia SNOMED Code(s): 604406849 Code(s): J18.9 - PNEUMONIA, UNSPECIFIED ORGANISM Status: Acute Current Visit: No Qualifiers: Pneumonia type: due to unspecified organism Laterality: right Lung location: upper lobe of lung Qualified Code(s): J18.1 - Lobar pneumonia, unspecified organism (9) Mass of right lung SNOMED Code(s): 198600029 Code(s): R91.8 - OTHER NONSPECIFIC ABNORMAL FINDING OF LUNG FIELD Status: Acute Current Visit: Yes - Problem List Review Problem List Initiated/Reviewed/Updated: Yes - My Orders Last 24 Hours: My Active Orders 07/27/18 09:00 Enoxaparin [Lovenox] 40 mg SUBCUT DAILY 07/27/18 11:00 Albuterol [Proventil HFA] 0 gm INH BIDRT Tiotropium [Spiriva HandiHaler] 18 mcg INH DAILYRT 07/27/18 11:27 Sodium Chloride 0.9% [Saline Flush] 10 ml FLUSH ASDIRECTED PRN 07/27/18 18:00 Patient's Own Medication [Ptom] 0 each PO BIDRT 07/27/18 21:00 Montelukast [Singulair] 10 mg PO BEDTIME 07/28/18 06:00 Levothyroxine 75 mcg PO ACBREAKFAST 07/28/18 08:45 Phosphorus #1 [Neutra-Phos] 500 mg PO ONETIME ONE 07/29/18 05:11 BASIC METABOLIC PANEL,BMP [CHEM] DAILY 07/30/18 05:11 BASIC METABOLIC PANEL,BMP [CHEM] DAILY - Plan Plan:: #Severe Sepsis + RUL Pneumonia: patient with cough with yellowish sputum production concerning for pneumonia. She is tachycardic, has significant leukocytosis. - Monitor on tele - Obtain Blood culture x2 - Start Vancomycin and Zosyn; allergic to Levaquin. - Monitor CBC - CT chest to better delineate lung lesion. #Acute respiratory failure with hypoxia: saturating 86-88% on room air. Improved to 90s with 4l of O2 via NC. - Supplemental O2 titrate to SpO2 of >92%. # Hyponatremia: Resolved. Imrpoved with 1 liter of NS over 1 hour. Na now 137 <= =129 <== 123 on presentation. Urine Na <10; Urine Osm 642 and Serum Osm 265. -Monitor renal function daily -Liberalized oral intake # Hypokalemia: K normal today. Monitor and replete. #Hypomagnesemia: - Monitor and replete # Tobacco use disorder: - Counseling provided. - Declined nicotine patch #Hypothyroidism: - Resume home synthroid #COPD: probable exacerbation. - Antibiotics as above. - Hold steroids for now so trend of leukocytosis can be determined. - Continue home inhalers. - Add duonebs. #Obesity: - Weight loss counseling. # Thrombocytopenia: Stable. - Monitor platelets. # Left lung mass: - Outpatient follow up for biopsy. DVT PPx: Lovenox. GI ppx: regular diet.
[2018-07-28] MEDS: Enoxaparin 40 MG/0.4 ML Syringe SUBCUT SCH (09:36)
[2018-07-28] MEDS: Sodium Chloride 0.9% 10 ML Syringe FLUSH PRN ×5 (12:51→18:49)
[2018-07-28] MEDS: Formoterol/Mometasone 200-5 MCG 8.8 GM Inhaler IH SCH ×2 (12:56→21:15)
[2018-07-28] MEDS: Montelukast 10 MG Tab PO SCH (21:14)
[2018-07-29] MEDS: Piperacillin/Tazobactam 3.375 GM in Sodium Chloride 0.9% 100 ML IV SCH ×5 (00:59→23:10)
[2018-07-29] MEDS: Levothyroxine 75 MCG Tab PO SCH (05:55)
[2018-07-29 07:07] LABS: ANION GAP 12.8; CHLORIDE,CL 105 mmol/L (101-111); SODIUM,NA 137 mmol/L (135-145)
[2018-07-29] MEDS: Enoxaparin 40 MG/0.4 ML Syringe SUBCUT SCH (09:07)
[2018-07-29] MEDS: Formoterol/Mometasone 200-5 MCG 8.8 GM Inhaler IH SCH ×2 (09:10→20:50)
[2018-07-29] MEDS: MOMETASONE PO SCH ×2 (09:11→17:42)
[2018-07-29] MEDS: FORMOTEROL PO SCH ×2 (09:11→17:42)
[2018-07-29] MEDS: Albuterol 6.7 GM Inhaler INH SCH ×2 (09:12→17:40)
[2018-07-29] MEDS: Tiotropium Inhaler 18 MCG Inhalation Powder Cap Kit of 5 INH SCH (09:13)
[2018-07-29] MEDS: Sodium Chloride 0.9% 10 ML Syringe FLUSH PRN ×2 (12:10→13:02)
--- NOTE | 2018-07-29 12:51 | PCM.PN ---
- General Info Date of Service: 07/29/18 Admission Dx/Problem (Free Text): Admission Diagnosis/Problem Admission Diagnosis/Problem Severe sepsis Subjective Update: Patient reports continued bloody sputum overnight. Reports that she is breathing better but is needing walker to ambulate, which is a change from her baseline. Reports that her right sided-muscle pain is resolved, worse with deep breathing. Was afebrile. Denies shortness of breath, n/v/d/c, chest pain, or any new symptoms. - Review of Systems Systems Review Comment:: as per subjective update above. - Patient Data Vitals - Most Recent: Last Vital Signs Temp 98.2 F 07/29/18 11:43 Pulse 89 07/29/18 11:43 Resp 20 07/29/18 11:43 BP 102/52 L 07/29/18 11:43 Pulse Ox 93 L 07/29/18 11:43 Weight - Most Recent: 259 lb 12.8 oz I&O - Last 24 Hours: Intake & Output 07/28/18 07/29/18 07/29/18 22:59 06:59 14:59 Intake Total 859 600 200 Output Total 1100 1000 Balance -241 600 -800 Lab Results Last 24 Hours: Laboratory Results - last 24 hr 07/28/18 07/29/18 Range/Units 22:45 06:15 Sodium 137 (135-145) mmol/L Potassium 3.8 (3.6-5.0) mmol/L Chloride 105 (101-111) mmol/L Carbon Dioxide 23.0 (21.0-31.0) mmol/L Anion Gap 12.8 BUN 11 (7-18) mg/dL Creatinine 0.6 (0.6-1.3) mg/dL Est Cr Clr Drug Dosing 91.01 mL/min Estimated GFR (MDRD) > 60 Glucose 94 (74-105) mg/dL Calcium 7.5 L (8.4-10.2) mg/dl Vancomycin Trough 14.1 (10-15) ug/ml Hussein Results Last 24 Hours: Microbiology 07/28/18 09:51 Gram Stain - Final Sputum - Expectorated Sputum Culture - Preliminary Normal [place] 07/26/18 22:20 Aerobic Blood Culture - Preliminary Blood - Venous - Lab Draw NO GROWTH AFTER 2 DAYS Anaerobic Blood Culture - Preliminary NO GROWTH AFTER 2 DAYS 07/26/18 19:40 Aerobic Blood Culture - Preliminary Blood - Venous NO GROWTH AFTER 2 DAYS Anaerobic Blood Culture - Final Med Orders - Current: Current Medications Acetaminophen (Tylenol) 650 mg PO Q4H PRN PRN Reason: Pain Albuterol (Proventil Hfa) 0 gm INH BIDRT [facility] Last Admin: 07/29/18 09:12 Dose: 1 puff Bisacodyl (Dulcolax) 5 mg PO DAILY PRN PRN Reason: Constipation Docusate Sodium (Colace) 100 mg PO BID PRN PRN Reason: Constipation Enoxaparin Sodium (Lovenox) 40 mg SUBCUT DAILY [facility] Last Admin: 07/29/18 09:07 Dose: 40 mg Piperacillin Sod/Tazobactam (Sod 3.375 gm/ Sodium Chloride) 100 mls @ 200 mls/ hr IV Q6H [facility] Last Admin: 07/29/18 12:10 Dose: 200 mls/hr Vancomycin HCl 1.25 gm/ Sodium (Chloride) 250 mls @ 166.667 mls/hr IV Q12H [facility] Last Admin: 07/28/18 23:16 Dose: 166.667 mls/hr Ibuprofen (Motrin) 600 mg PO Q6H PRN PRN Reason: Pain Levothyroxine Sodium (Levothyroxine) 75 mcg PO ACBREAKFAST [facility] Last Admin: 07/29/18 05:55 Dose: 75 mcg Magnesium Hydroxide (Milk Of Magnesia) 30 ml PO Q12H PRN PRN Reason: Constipation Mometasone Furoate/Formoterol Fumar (Dulera 200-5 Mcg) 2 puff IH BID [facility] Last Admin: 07/29/18 09:10 Dose: Not Given Montelukast Sodium (Singulair) 10 mg PO BEDTIME [facility] Last Admin: 07/28/18 21:14 Dose: 10 mg Ondansetron HCl (Zofran Odt) 4 mg PO Q6H PRN PRN Reason: nausea, able to take PO Ondansetron HCl (Zofran) 4 mg IVPUSH Q6H PRN PRN Reason: Nausea/Vomiting Formoterol/Mometasone 200-5 Mcg 8.8 Gm Inhaler Own Med 0 each PO BIDRT [facility] Last Admin: 07/29/18 09:11 Dose: 1 each Polyethylene Glycol (Miralax) 17 gm PO DAILY PRN PRN Reason: Constipation Promethazine HCl (Phenergan) 25 mg PO Q6H PRN PRN Reason: nausea, able to take PO Senna/Docusate Sodium (Senna Plus) 1 tab PO BEDTIME PRN PRN Reason: Constipation Sodium Chloride (Saline Flush) 10 ml FLUSH ASDIRECTED PRN PRN Reason: Keep Vein Open Last Admin: 07/29/18 12:10 Dose: 10 ml Tiotropium [place] (Spiriva Handihaler) 18 mcg INH DAILYRT [facility] Last Admin: 07/29/18 09:13 Dose: 18 mcg Vancomycin HCl (Pharmacy To Dose - Vancomycin) 1 dose .XX ASDIRECTED [facility] Discontinued Medications Heparin Sodium (Porcine) (Heparin Sodium) 5,000 units SUBCUT ONETIME ONE Stop: 07/26/18 22:27 Last Admin: 07/26/18 23:11 Dose: 5,000 units Sodium Chloride (Normal Saline) 1,000 mls @ 100 mls/hr IV ASDIRECTED [facility] Stop: 07/27/18 08:01 Last Admin: 07/26/18 23:08 Dose: 100 mls/hr Potassium Chloride 10 meq/ (Premix) 100 mls @ 100 mls/hr IV Q1H [facility] Stop: 07/27/18 12:59 Last Infusion: 07/27/18 17:29 Dose: Infused Magnesium Sulfate 2 gm/ Premix 50 mls @ 25 mls/hr IV ONETIME ONE Stop: 07/27/18 10:20 Last Infusion: 07/27/18 10:47 Dose: Infused Budesonide/Formoterol [ Symbicort 80-4.5 Mcg ] 1 Puff 1 puff INH BID [facility] Sodium Phosphate (Neutra-Phos) 250 mg PO QID [facility] Stop: 07/27/18 21:01 Last Admin: 07/27/18 20:57 Dose: 250 mg Sodium Phosphate (Neutra-Phos) 500 mg PO ONETIME ONE Stop: 07/28/18 08:46 Last Admin: 07/28/18 09:36 Dose: 500 mg - Exam General: Alert, Oriented, Cooperative, No Acute Distress HEENT: Pupils Equal, Pupils Reactive, EOMI Lungs: Clear to Auscultation, Normal Respiratory Effort Cardiovascular: Regular Rate, Regular Rhythm GI/Abdominal Exam: Normal Bowel Sounds, Soft, Non-Tender Extremities: Normal Inspection, Non-Tender, No Pedal Edema Peripheral Pulses: 2+: Radial (L), Radial (R), Dorsalis Pedis (L), Dorsalis Pedis (R) Skin: Warm, Dry, Intact Neurological: No New Focal Deficit Psy/Mental Status: Alert, Normal Affect, Normal Mood - Problem List & Annotations (1) Acute respiratory failure with hypoxia SNOMED Code(s): 16056862, 637346321 Code(s): J96.01 - ACUTE RESPIRATORY FAILURE WITH HYPOXIA Status: Acute Priority: High Current Visit: Yes (2) Hyponatremia SNOMED Code(s): 68780408 Code(s): E87.1 - HYPO-OSMOLALITY AND HYPONATREMIA Status: Acute Priority : High Current Visit: Yes (3) Hypokalemia SNOMED Code(s): 45139024 Code(s): E87.6 - HYPOKALEMIA Status: Acute Priority: Medium Current Visit: Yes (4) Severe sepsis SNOMED Code(s): 05689046 Code(s): A41.9 - SEPSIS, UNSPECIFIED ORGANISM; R65.20 - SEVERE SEPSIS WITHOUT SEPTIC SHOCK Status: Acute Priority: High Current Visit: Yes (5) Tobacco use disorder SNOMED Code(s): 473823582 Code(s): F17.200 - NICOTINE DEPENDENCE, UNSPECIFIED, UNCOMPLICATED Status: Acute Current Visit: Yes (6) Obesity SNOMED Code(s): 480496499, 793345018 Code(s): E66.9 - OBESITY, UNSPECIFIED Status: Acute Current Visit: Yes Qualifiers: Obesity type: due to excess calories Obesity classification: adult class 3 (BMI >= 40) Body mass index: BMI 40.0-44.9 (7) Acute exacerbation of chronic obstructive pulmonary disease (COPD) SNOMED Code(s): 734753844 Code(s): J44.1 - CHRONIC OBSTRUCTIVE PULMONARY DISEASE W (ACUTE) EXACERBATION Status: Acute Priority: High Current Visit: No (8) Pneumonia SNOMED Code(s): 766500416 Code(s): J18.9 - PNEUMONIA, UNSPECIFIED ORGANISM Status: Acute Current Visit: No Qualifiers: Pneumonia type: due to unspecified organism Laterality: right Lung location: upper lobe of lung Qualified Code(s): J18.1 - Lobar pneumonia, unspecified organism (9) Mass of right lung SNOMED Code(s): 930299288 Code(s): R91.8 - OTHER NONSPECIFIC ABNORMAL FINDING OF LUNG FIELD Status: Acute Current Visit: Yes - Problem List Review Problem List Initiated/Reviewed/Updated: Yes - My Orders Last 24 Hours: My Active Orders 07/28/18 14:00 Precautions [COMM] Routine 07/28/18 19:48 RT Incentive Spirometry [RC] ASDIRECTED 07/28/18 19:49 Flutter Valve Therapy [RT Chest Physiotherapy] [RC] ASDIRECTED 07/29/18 08:06 CULTURE AFB AND SMEAR [MREF] Routine 07/30/18 05:11 BASIC METABOLIC PANEL,BMP [CHEM] DAILY CBC W/O DIFF,HEMOGRAM [HEME] AM MAGNESIUM [CHEM] AM PHOSPHORUS [CHEM] AM 07/30/18 07:00 CULTURE [employer] AND SMEAR [MREF] Routine - Plan Plan:: #Severe Sepsis + RUL Pneumonia: patient with cough with yellowish sputum production concerning for pneumonia. She was tachycardic, had significant leukocytosis. - Monitor on tele - Continue Vancomycin and Zosyn; allergic to Levaquin. - Monitor CBC - CT with right upper lobe infiltrate and and left lung mass #Hemoptysis: unspecified source. - AFB culture and smear obtained. - Will need bronchoscopy; attempted to transfer to [facility] today but roads are bad due to weather. #Acute respiratory failure with hypoxia: Resolved. saturating well on room air. - Supplemental O2 titrate to SpO2 of >92%. # Hyponatremia: Resolved. Imrpoved with 1 liter of NS over 1 hour. Na now 137 <= =129 <== 123 on presentation. Urine Na <10; Urine Osm 642 and Serum Osm 265. -Monitor renal function daily -Liberalized oral intake # Hypokalemia: K normal today. Monitor and replete. #Hypomagnesemia: - Monitor and replete # Tobacco use disorder: - Counseling provided. - Declined nicotine patch #Hypothyroidism: - Continue home synthroid #COPD: probable exacerbation. - Antibiotics as above. - Hold steroids for now so trend of leukocytosis can be determined. - Continue home inhalers. - Add duonebs. #Obesity: - Weight loss counseling. # Thrombocytopenia: Stable. - Monitor platelets. # Left lung mass: - Outpatient follow up for biopsy. DVT PPx: Lovenox. GI ppx: regular diet.
[2018-07-29] MEDS: Montelukast 10 MG Tab PO SCH (20:50)
[2018-07-30] MEDS: Piperacillin/Tazobactam 3.375 GM in Sodium Chloride 0.9% 100 ML IV SCH (05:39)
[2018-07-30] MEDS: Levothyroxine 75 MCG Tab PO SCH (05:40)
[2018-07-30 07:01] LABS: ANION GAP 13.8; CHLORIDE,CL 105 mmol/L (101-111); SODIUM,NA 137 mmol/L (135-145)
[2018-07-30] MEDS: Albuterol 6.7 GM Inhaler INH SCH (07:49)
[2018-07-30] MEDS: Tiotropium Inhaler 18 MCG Inhalation Powder Cap Kit of 5 INH SCH (07:49)
[2018-07-30] MEDS: FORMOTEROL PO SCH (07:51)
[2018-07-30] MEDS: MOMETASONE PO SCH (07:51)
[2018-07-30] MEDS: Formoterol/Mometasone 200-5 MCG 8.8 GM Inhaler IH SCH (09:19)
[2018-07-30] MEDS: Enoxaparin 40 MG/0.4 ML Syringe SUBCUT SCH (09:19)
[2018-07-30] MEDS ORDERED: Sodium Chloride 0.9% 1,000 ML IV SCH (11:00)
[2018-07-30 11:34] VITALS: BP 123/73
--- NOTE | 2018-07-30 11:54 | PCM.DCSUM1 ---
Discharge Summary - Hospital Course Free Text/Narrative:: Ms. Remy is a 63 y.o female with medical history significant for tobacco use disorder, pneumonia, COPD, hypothyroidism, and osteoporosis who was admitted for sepsis due to CAP and acute respiratory failure with hypoxia. She was started on vancomycin and zosyn after blood cultures had been obtained. CXR showed right upper lobe infiltrate. There was concern for possible left upper lobe infiltrate vs mass so CT chest was obtained which showed left upper lobe mass concerning for neoplasm vs granuloma. Leukocytosis resolved. However, continued to have sputum production. Started having hemoptysis. which has persisted despite resolution of fevers, cough, and O2 requirement. Blood cultures have been negative. Sputum culture pending. AFB smear sent out. Patient is being transferred to [facility] by private vehicle for consideration of bronchoscopy and/or pulmonology consultation. HPI Initial Comments: Ms. Remy is a 63 y.o female with medical history significant for tobacco use disorder, pneumonia, COPD, hypothyroidism, and osteoporosis who presented to the ED with complaints of 3 days of shortness of breath and cough. Reports cough with copious yellowish sputum. She reports progressive shortness of breath both at rest and with exertion. She reports chills but denies any fevers. Reports headache for which she took one dose of tylenol last night. Reports about 5 lb weight gain but did not specify the time frame. She reports smoking a pack of cigarettes daily but quit for 3 months last year when she had pneumonia. Started smoking at age 13. Had diarrhea this morning that was nonbloody and non-melenic. Reports she feels thirsty all the time and has been drinking lots of water. Reports that she also goes to the bathroom too frequently. Denies chest pain, nausea, vomiting, abdominal pain, night sweats, or edema. Diagnosis: Stroke: No - Discharge Data Discharge Date: 07/30/18 Discharge Disposition: DC/Tfer to Acute Hospital 02 Condition: Stable - Discharge Diagnosis/Problem(s) (1) Acute respiratory failure with hypoxia SNOMED Code(s): 60395441, 136538715 ICD Code: J96.01 - ACUTE RESPIRATORY FAILURE WITH HYPOXIA Status: Acute Priority: High Current Visit: Yes (2) Hyponatremia SNOMED Code(s): 47947165 ICD Code: E87.1 - HYPO-OSMOLALITY AND HYPONATREMIA Status: Acute Priority : High Current Visit: Yes (3) Hypokalemia SNOMED Code(s): 13838445 ICD Code: E87.6 - HYPOKALEMIA Status: Acute Priority: Medium Current Visit: Yes (4) Severe sepsis SNOMED Code(s): 89008087 ICD Code: A41.9 - SEPSIS, UNSPECIFIED ORGANISM; R65.20 - SEVERE SEPSIS WITHOUT SEPTIC SHOCK Status: Acute Priority: High Current Visit: Yes (5) Tobacco use disorder SNOMED Code(s): 529769715 ICD Code: F17.200 - NICOTINE DEPENDENCE, UNSPECIFIED, UNCOMPLICATED Status : Acute Current Visit: Yes (6) Obesity SNOMED Code(s): 855958188, 602811017 ICD Code: E66.9 - OBESITY, UNSPECIFIED Status: Acute Current Visit: Yes Qualifiers: Obesity type: due to excess calories Obesity classification: adult class 3 (BMI >= 40) Body mass index: BMI 40.0-44.9 (7) Acute exacerbation of chronic obstructive pulmonary disease (COPD) SNOMED Code(s): 472306705 ICD Code: J44.1 - CHRONIC OBSTRUCTIVE PULMONARY DISEASE W (ACUTE) EXACERBATION Status: Acute Priority: High Current Visit: No (8) Pneumonia SNOMED Code(s): 510350107 ICD Code: J18.9 - PNEUMONIA, UNSPECIFIED ORGANISM Status: Acute Current Visit: No Qualifiers: Pneumonia type: due to unspecified organism Laterality: right Lung location: upper lobe of lung Qualified Code(s): J18.1 - Lobar pneumonia, unspecified organism (9) Mass of right lung SNOMED Code(s): 297553007 ICD Code: R91.8 - OTHER NONSPECIFIC ABNORMAL FINDING OF LUNG FIELD Status: Acute Current Visit: Yes - Patient Instructions Diet: Heart Healthy Diet Activity: As Tolerated - Discharge Plan Home Medications: Home Meds Albuterol [IJD: Ventolin HFA] 1 puff INH .TWICE DAILY #18 gm 04/03/17 [Rx] Alendronate [Fosamax] 70 mg PO ASDIRECTED 07/26/18 [History] Ergocalciferol (Vitamin D2) [Ergocalciferol] 8,000 unit PO WEEKLY 07/26/18 [ History] Levothyroxine 75 mcg PO ACBREAKFAST 07/26/18 [History] Montelukast [Singulair] 10 mg PO DAILY 07/26/18 [History] Tiotropium [Spiriva HandiHaler] 18 mcg INH ACLUNCH 07/26/18 [History] Mometasone/Formoterol [Dulera 200-5 MCG] 2 puff IH BID 07/27/18 [History] Acetaminophen [Tylenol] 650 mg PO Q4H PRN tablet 07/30/18 [Rx] Enoxaparin [Lovenox] 40 mg SUBCUT DAILY syringe 07/30/18 [Rx] Patient's Own Medication [Ptom] 0 each PO BIDRT each 07/30/18 [Rx] Pharmacy to Dose - Vancomycin 1 dose .XX ASDIRECTED each 07/30/18 [Rx] Piperacillin/Tazobactam [Zosyn] 3.375 gm IV Q6H vial 07/30/18 [Rx] Vancomycin 1.25 gm IV Q12H sdv 07/30/18 [Rx] - Discharge Summary/Plan Comment DC Time >30 min.: Yes - General Info Date of Service: 07/30/18 Admission Dx/Problem (Free Text: Admission Diagnosis/Problem Admission Diagnosis/Problem Severe sepsis Subjective Update: Patient reports continued bloody sputum overnight. Reports that she is breathing better and feeling better. Ambulating okay. Reports that her right sided-muscle pain recurs intermittently, worse with deep breathing. Was afebrile. Denies shortness of breath, n/v/d/c, or any new symptoms. Functional Status: Reports: Pain Controlled - Review of Systems Systems Review Comment: As per subjective update above - Patient Data Vitals - Most Recent: Last Vital Signs Temp 97.8 F 07/30/18 11:33 Pulse 92 07/30/18 11:33 Resp 20 07/30/18 11:33 BP 123/73 07/30/18 11:33 Pulse Ox 94 L 07/30/18 11:33 Weight - Most Recent: 260 lb 8 oz I&O - Last 24 hours: Intake & Output 07/29/18 07/30/18 07/30/18 22:59 06:59 14:59 Intake Total 450 820 200 Output Total 1400 1700 Balance -950 -880 200 Lab Results - Last 24 hrs: Laboratory Results - last 24 hr 07/30/18 07/30/18 Range/Units 05:50 05:50 WBC 7.1 (5.0-10.0) 10^3/uL RBC 4.16 L (4.2-5.4) 10^6/uL Hgb 12.7 (12.0-16.0) g/dL Hct 39.8 (37.0-47.0) % MCV 95.7 (80-100) fL MCH 30.5 (27.0-34.0) pg MCHC 31.9 L (33.0-35.0) g/dL Plt Count 215 (150-450) 10^3/uL Sodium 137 (135-145) mmol/L Potassium 3.8 (3.6-5.0) mmol/L Chloride 105 (101-111) mmol/L Carbon Dioxide 22.0 (21.0-31.0) mmol/L Anion Gap 13.8 BUN 9 (7-18) mg/dL Creatinine 0.6 (0.6-1.3) mg/dL Est Cr Clr Drug Dosing 91.01 mL/min Estimated GFR (MDRD) > 60 Glucose 91 (74-105) mg/dL Calcium 7.7 L (8.4-10.2) mg/dl Phosphorus 2.5 (2.5-4.6) mg/dL Magnesium 2.1 (1.8-2.5) mg/dL BENITO Results - Last 24 hrs: Microbiology 07/28/18 09:51 Gram Stain - Final Sputum - Expectorated Sputum Culture - Preliminary NORMAL RESPIRATORY YANELY 2 DAYS 07/26/18 22:20 Aerobic Blood Culture - Preliminary Blood - Venous - Lab Draw NO GROWTH AFTER 3 DAYS Anaerobic Blood Culture - Preliminary NO GROWTH AFTER 3 DAYS 07/26/18 19:40 Aerobic Blood Culture - Preliminary Blood - Venous NO GROWTH AFTER 3 DAYS Anaerobic Blood Culture - Final Med Orders - Current: Current Medications Acetaminophen (Tylenol) 650 mg PO Q4H PRN PRN Reason: Pain Albuterol (Proventil Hfa) 0 gm INH BIDRT [facility] Last Admin: 07/30/18 07:49 Dose: 1 puff Bisacodyl (Dulcolax) 5 mg PO DAILY PRN PRN Reason: Constipation Docusate Sodium (Colace) 100 mg PO BID PRN PRN Reason: Constipation Enoxaparin Sodium (Lovenox) 40 mg SUBCUT DAILY [facility] Last Admin: 07/30/18 09:19 Dose: 40 mg Piperacillin Sod/Tazobactam (Sod 3.375 gm/ Sodium Chloride) 100 mls @ 200 mls/ hr IV Q6H [facility] Last Admin: 07/30/18 05:39 Dose: 200 mls/hr Vancomycin HCl 1.25 gm/ Sodium (Chloride) 250 mls @ 166.667 mls/hr IV Q12H [facility] Last Admin: 07/30/18 10:36 Dose: 166.667 mls/hr Ibuprofen (Motrin) 600 mg PO Q6H PRN PRN Reason: Pain Levothyroxine Sodium (Levothyroxine) 75 mcg PO ACBREAKFAST [facility] Last Admin: 07/30/18 05:40 Dose: 75 mcg Magnesium Hydroxide (Milk Of Magnesia) 30 ml PO Q12H PRN PRN Reason: Constipation Mometasone Furoate/Formoterol Fumar (Dulera 200-5 Mcg) 2 puff IH BID [facility] Last Admin: 07/30/18 09:19 Dose: Not Given Montelukast Sodium (Singulair) 10 mg PO BEDTIME [facility] Last Admin: 07/29/18 20:50 Dose: 10 mg Ondansetron HCl (Zofran Odt) 4 mg PO Q6H PRN PRN Reason: nausea, able to take PO Ondansetron HCl (Zofran) 4 mg IVPUSH Q6H PRN PRN Reason: Nausea/Vomiting Formoterol/Mometasone 200-5 Mcg 8.8 Gm Inhaler Own Med 0 each PO BIDRT [facility] Last Admin: 07/30/18 07:51 Dose: 2 each Polyethylene Glycol (Miralax) 17 gm PO DAILY PRN PRN Reason: Constipation Promethazine HCl (Phenergan) 25 mg PO Q6H PRN PRN Reason: nausea, able to take PO Senna/Docusate Sodium (Senna Plus) 1 tab PO BEDTIME PRN PRN Reason: Constipation Sodium Chloride (Saline Flush) 10 ml FLUSH ASDIRECTED PRN PRN Reason: Keep Vein Open Last Admin: 07/29/18 13:02 Dose: 10 ml Tiotropium [place] (Spiriva Handihaler) 18 mcg INH DAILYRT [facility] Last Admin: 07/30/18 07:49 Dose: 18 mcg Vancomycin HCl (Pharmacy To Dose - Vancomycin) 1 dose .XX ASDIRECTED [facility] Discontinued Medications Heparin Sodium (Porcine) (Heparin Sodium) 5,000 units SUBCUT ONETIME ONE Stop: 07/26/18 22:27 Last Admin: 07/26/18 23:11 Dose: 5,000 units Sodium Chloride (Normal Saline) 1,000 mls @ 100 mls/hr IV ASDIRECTED [facility] Stop: 07/27/18 08:01 Last Admin: 07/26/18 23:08 Dose: 100 mls/hr Potassium Chloride 10 meq/ (Premix) 100 mls @ 100 mls/hr IV Q1H [facility] Stop: 07/27/18 12:59 Last Infusion: 07/27/18 17:29 Dose: Infused Magnesium Sulfate 2 gm/ Premix 50 mls @ 25 mls/hr IV ONETIME ONE Stop: 07/27/18 10:20 Last Infusion: 07/27/18 10:47 Dose: Infused Sodium Chloride (Normal Saline) 1,000 mls @ 10 mls/hr IV ASDIRECTED [facility] Stop: 08/03/18 10:52 Budesonide/Formoterol [ Symbicort 80-4.5 Mcg ] 1 Puff 1 puff INH BID [facility] Sodium Phosphate (Neutra-Phos) 250 mg PO QID [facility] Stop: 07/27/18 21:01 Last Admin: 07/27/18 20:57 Dose: 250 mg Sodium Phosphate (Neutra-Phos) 500 mg PO ONETIME ONE Stop: 07/28/18 08:46 Last Admin: 07/28/18 09:36 Dose: 500 mg - Exam General: Reports: Alert, Oriented HEENT: Reports: Pupils Equal, Pupils Reactive, Mucous Membr. Moist/[place]ck: Reports: Supple Lungs: Reports: Clear to Auscultation, Normal Respiratory Effort Cardiovascular: Reports: Regular Rate, Regular Rhythm GI/Abdominal Exam: Normal Bowel Sounds, Soft, Non-Tender Skin: Reports: Warm, Dry, Intact Neurological: Reports: No New Focal Deficit Psy/Mental Status: Reports: Alert, Normal Affect, Normal Mood
== END 2018-07-30 12:35 | DRG 871 ==
LOC: DL.ED 18:49 → DL.MS 21:28 → UNDOADMIN 21:28 → DL.MS 21:54
PROVIDERS: ADMIT Internal Medicine; ATTEND Internal Medicine
DX: A41.9 Sepsis, unspecified organism (principal); J18.1 Lobar pneumonia, unspecified organism; F17.200 Nicotine dependence, unspecified, uncomplicated; J96.01 Acute respiratory failure with hypoxia; J44.1 Chronic obstructive pulmonary disease with (acute) exacerbation; J44.0 Chronic obstructive pulmonary disease with (acute) lower respiratory infection; Z68.41 Body mass index [BMI] 40.0-44.9, adult; E22.2 Syndrome of inappropriate secretion of antidiuretic hormone; R04.2 Hemoptysis; R06.02 Shortness of breath; R65.20 Severe sepsis without septic shock; E66.9 Obesity, unspecified; M81.0 Age-related osteoporosis without current pathological fracture; F17.210 Nicotine dependence, cigarettes, uncomplicated; D69.6 Thrombocytopenia, unspecified; E87.6 Hypokalemia; R91.8 Other nonspecific abnormal finding of lung field; E83.42 Hypomagnesemia; Z88.1 Allergy status to other antibiotic agents; Z79.899 Other long term (current) drug therapy; Z87.01 Personal history of pneumonia (recurrent); Z98.891 History of uterine scar from previous surgery; Z66 Do not resuscitate
CPT/HCPCS: 36415; 71045; 71250; 80048; 80053; 80202; 82040; 83605; 83735; 83930; 83935; 84100; 84300; 85025; 85027; 87040; 87070; 87205; 99284; 99285; A9270-GY; J1644; J1650; J2543; J3370; J3475; J3480; J7030; J7050

== ENCOUNTER 2019-04-24 20:13 | Inpatient (IN) | payer OTHER ==
--- NOTE | 2019-04-24 20:44 | EDM.PDOC ---
ED HPI GENERAL MEDICAL PROBLEM - General Chief Complaint: General Stated Complaint: LOW BP/THINKS DEHYDRATED Time Seen by Provider: 04/24/19 20:20 Source of Information: Reports: Patient, RN, RN Notes Reviewed History Limitations: Reports: No Limitations - History of Present Illness INITIAL COMMENTS - FREE TEXT/NARRATIVE: 63 year old who female who presented to the ER with complaints of not feeling well. Reports she went to [place] for a wedding of her niece four days ago and returning home, she started feeling sick. She is not specific about her symptoms. She denies any fever/chills but admits to fatigue all day. States she has COPD and has been SOB for a long time. She is waiting for a referral to see pulmonology for a bronchoscope. Reports cough with phlegm production. denies any wheezing. She is down to smoking two cigarettes a day on chantix from a PPD. She also admits to having intermittent chest discomfort for the past three days. She rated pain as 2/10 and describes it as an ache. She also reports her BP at home has been running in the 90/60 and she thinks she is dehydrated as he is not drinking. Patient states she was in the hospital visiting her grand daughter and stopped by the ER on her way out for evaluation of her symptoms. - Related Data Allergies Allergy/AdvReac Type Severity Reaction Status Date / Time levofloxacin Allergy Itching Verified 04/24/19 20:21 Home Meds: Home Meds Albuterol [IJD: Ventolin HFA] 1 puff INH .TWICE DAILY #18 gm 04/03/17 [Rx] Alendronate [Fosamax] 70 mg PO .WEEKLY 07/26/18 [History] Ergocalciferol (Vitamin D2) [Ergocalciferol] 8,000 unit PO WEEKLY 07/26/18 [ History] Levothyroxine 75 mcg PO ACBREAKFAST 07/26/18 [History] Montelukast [Singulair] 10 mg PO BEDTIME 07/26/18 [History] Tiotropium [Spiriva HandiHaler] 18 mcg INH ACLUNCH 07/26/18 [History] Acetaminophen [Tylenol] 650 mg PO Q4H PRN tablet 07/30/18 [Rx] Albuterol [Proventil HFA] 1 - 2 puff INH ASDIRECTED 03/05/19 [History] Budesonide/Formoterol Fumarate [Symbicort 160-4.5 Mcg Inhaler] 2 puff INH ASDIRECTED 03/05/19 [History] Furosemide 20 mg PO DAILY 03/05/19 [History] Losartan [Cozaar] 25 mg PO DAILY 03/05/19 [History] Metoprolol Succinate [Toprol XL] 25 mg PO DAILY 03/05/19 [History] Varenicline Tartrate [Chantix] 1 mg PO ASDIRECTED 03/05/19 [History] Fluticasone Propion/Salmeterol [Wixela 500-50 Inhub] 1 puff INH ASDIRECTED 03/06 [History] Past Medical History HEENT History: Reports: Impaired Vision Cardiovascular History: Reports: CAD, Cardiomyopathy, Hypertension, Other (See Below) Other Cardiovascular History: CAVITARY PULMONARY LESION Respiratory History: Reports: Bronchitis, Recurrent, COPD, Pneumonia, Recurrent , Other (See Below) Other Respiratory History: CAVITARY PULMONARY LESION Gastrointestinal History: Reports: None 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: Neurological History: Reports: None Psychiatric History: Reports: None Endocrine/Metabolic History: Reports: Hypothyroidism, Obesity/BMI 30+, Osteoporosis, Vitamin D Deficiency Hematologic History: Reports: None Immunologic History: Reports: None Oncologic (Cancer) History: Reports: None Dermatologic History: Reports: Eczema - Infectious Disease History Infectious Disease History: Reports: Chicken Pox, Measles, Mumps - Past Surgical History Head Surgeries/Procedures: Reports: None HEENT Surgical History: Reports: None Cardiovascular Surgical History: Reports: Other (See Below) Other Cardiovascular Surgeries/Procedures: ANGIOGRAM Respiratory Surgical History: Reports: Other (See Below) Other Respiratory Surgeries/Procedures: BRONCOSCOPE GI Surgical History: Reports: None Female Surgical History: Reports: Section Endocrine Surgical History: Reports: None Neurological Surgical History: Reports: None Musculoskeletal Surgical History: Reports: Other (See Below) Other Musculoskeletal Surgeries/Procedures:: FOOT SURGERY Oncologic Surgical History: Reports: None Dermatological Surgical History: Reports: None Social & Family History - Family History Cardiac: Reports: Other (See Below) Other Cardiac Family History: "bad hearts" Respiratory: Reports: Other (See Below) Other Respiratory Family Hisory: Chronic Bronchitis Endocrine/Metabolic: Reports: Diabetes, type II Dermatologic: Reports: Eczema Oncologic: Reports: Bone, Breast, Lung - Tobacco Use Smoking Status *Q: Current Every Day Smoker Years of Tobacco use: 45 Packs/Tins Daily: 0.5 Used Tobacco, but Quit: No Second Hand Smoke Exposure: Yes - Caffeine Use Caffeine Use: Reports: Soda Other Caffeine Use: DRINKS COKE AND TEA. AVERGE OF 2 LITER BOTTLE DAILY - Recreational Drug Use Recreational Drug Use: No ED ROS GENERAL - Review of Systems Review Of Systems: See Below Constitutional: Reports: Fatigue HEENT: Reports: No Symptoms Respiratory: Reports: Shortness of Breath, Cough Cardiovascular: Reports: Chest Pain (negative at this time.) Endocrine: Reports: Fatigue GI/Abdominal: Reports: No Symptoms Musculoskeletal: Reports: No Symptoms Neurological: Reports: No Symptoms Psychiatric: Reports: No Symptoms Hematologic/Lymphatic: Reports: Easy Bruising Immunologic: Reports: No Symptoms ED EXAM, GENERAL - Physical Exam Exam: See Below Exam Limited By: No Limitations General Appearance: Alert, WD/WN, Mild Distress Eye Exam: Bilateral Eye: Normal Inspection, PERRL Ears: Normal External Exam, Normal Canal, Hearing Grossly Normal, Normal TMs Nose: Normal Inspection, Normal Mucosa, No Blood Throat/Mouth: Normal Inspection, Normal Lips, Normal Teeth, Normal Gums, Normal Oropharynx, Normal Voice, No Airway Compromise Head: Atraumatic, Normocephalic Neck: Normal Inspection, Supple, Non-Tender, Full Range of Motion Respiratory/Chest: Decreased Breath Sounds Cardiovascular: No Edema, No Gallop, No JVD, No Murmur, No Rub, Tachycardia Peripheral Pulses: 3+: Radial (L), Radial (R), Posterior Tibial (L), Posterior Tibial (R), Dorsalis Pedis (L), Dorsalis Pedis (R) GI/Abdominal: Normal Bowel Sounds, Soft, Non-Tender, No Organomegaly, No Distention, No Abnormal Bruit, No Mass (Female) Exam: Deferred Rectal (Female) Exam: Deferred Extremities: Normal Inspection, Normal Range of Motion, Non-Tender, Normal Capillary Refill, No Pedal Edema Neurological: Alert, Oriented, CN II-XII Intact, Normal Cognition, Normal Gait, No Motor/Sensory Deficits Psychiatric: Normal Affect, Normal Mood Skin Exam: Warm, Dry, Intact, Normal Color, No Rash Lymphatic: No Adenopathy Course - Orders/Labs/Meds Orders: Active Orders 24 hr Category Date Time Status EKG 12 Lead [EKG Documentation Completion] [RC] URGENT Care 04/24/19 20:40 Active RT Aerosol Therapy [RC] ASDIRECTED Care 04/24/19 21:01 Ordered Chest 2V [CR] Urgent Exams 04/24/19 20:34 Ordered B-TYPE NATRIURETIC PEPTIDE,BNP [CHEM] Stat Lab 04/24/19 20:30 Received CMP [COMPREHENSIVE METABOLIC PN,CMP] [CHEM] Stat Lab 04/24/19 20:30 Received CULTURE BLOOD [BC] Stat Lab 04/24/19 21:00 Ordered CULTURE BLOOD [BC] Stat Lab 04/24/19 21:00 Ordered LACTIC ACID [CHEM] Stat Lab 04/24/19 20:59 Ordered TROPONIN I [CHEM] Stat Lab 04/24/19 20:30 Received Albuterol/Ipratropium [DuoNeb 3.0-0.5 MG/3 ML] Med 04/24/19 21:01 Once 3 ml NEB ONETIME ONE methylPREDNISolone Sod Succ [Solu-MEDROL] Med 04/24/19 21:02 Once 125 mg IVPUSH ONETIME ONE Blood Culture x2 Reflex Set [OM.PC] Stat Oth 04/24/19 21:00 Ordered Medication Orders Albuterol/Ipratropium (Duoneb 3.0-0.5 Mg/3 Ml) 3 ml NEB ONETIME ONE Stop: 04/24/19 21:02 Methylprednisolone Sodium Succinate (Solu-Medrol) 125 mg IVPUSH ONETIME ONE Stop: 04/24/19 21:03 Labs: Laboratory Tests 04/24/19 Range/Units 20:30 WBC 15.4 H (5.0-10.0) 10^3/uL RBC 5.61 H (4.2-5.4) 10^6/uL Hgb 15.9 (12.0-16.0) g/dL Hct 50.0 H (37.0-47.0) % MCV 89.1 D (80-100) fL MCH 28.3 (27.0-34.0) pg MCHC 31.8 L (33.0-35.0) g/dL Plt Count 242 (150-450) 10^3/uL Neut % (Auto) 76.6 H (42.2-75.2) % Lymph % (Auto) 14.7 L (20.5-50.1) % Real % (Auto) 7.0 (2-8) % Eos % (Auto) 1.6 (1.0-3.0) % Baso % (Auto) 0.1 (0.0-1.0) % Meds: Medications Generic Name Dose Route Start Last Admin Trade Name Freq PRN Reason Stop Dose Admin Albuterol/Ipratropium 3 ml 04/24/19 21:01 Duoneb 3.0-0.5 Mg/3 Ml NEB 04/24/19 21:02 ONETIME ONE Methylprednisolone Sodium Succinate 125 mg 04/24/19 21:02 Solu-Medrol IVPUSH 04/24/19 21:03 ONETIME ONE - Radiology Interpretation Free Text/Narrative:: Chest xray: FINDINGS: Lungs: Possibly some airspace disease in the left base. Left upper lobe cavitary lesion is unchanged from CT scan. Pleural space: Unremarkable. No evidence of pneumothorax. Heart/Mediastinum: Left hilar fullness consistent with lymphadenopathy seen on CT scan. Bones/joints: Unremarkable. IMPRESSION: 1. Small amount of airspace disease in the left base could be atelectasis or infiltrate. 2. Left upper lobe cavitary lesion is unchanged from CT scan. 3. Left hilar fullness consistent with lymphadenopathy seen on CT scan. Thank you for allowing us to participate in the care of your patient. Dictated and Authenticated by: Wilder Lofton MD 04/24/2019 9:49 PM Central Time ([place] & [place]) - Re-Assessments/Exams Free Text/Narrative Re-Assessment/Exam: 63 year female who presents to the ER with complaints of hypotension, dehydration and fatigue. Oxygen saturation was 75% on presentation and 4 L NC placed. Oxygen improved to the low 90's. Patient was still tachycardic with EKG reading sinus tach at 117. Patient administered DuoNeb and Solumedrol 125 mg. CBC positive for leukocytosis a left shift. troponin negative, BNP normal. Discussed case with Dr. Rueda who accepted patient for admission. Plan of care discussed with patient and she was in agreement to plan. Rocephin 1 g and NS 2 100ml/hr initiated. Departure - Departure Time of Disposition: 22:10 Disposition: DC/Tfer W/I Hosp To Swing 61 Condition: Fair Clinical Impression: Pneumonia Qualifiers: Pneumonia type: due to unspecified organism Laterality: left Lung location: lower lobe of lung Qualified Code(s): J18.1 - Lobar pneumonia, unspecified organism - Discharge Information *PRESCRIPTION DRUG MONITORING PROGRAM REVIEWED*: Not Applicable *COPY OF PRESCRIPTION DRUG MONITORING REPORT IN PATIENT AGUSTINA: Not Applicable Forms: ED Department Discharge - My Orders Last 24 Hours: My Active Orders 04/24/19 20:30 B-TYPE NATRIURETIC PEPTIDE,BNP [CHEM] Stat CMP [COMPREHENSIVE METABOLIC PN,CMP] [CHEM] Stat TROPONIN I [CHEM] Stat 04/24/19 20:34 Chest 2V [CR] Urgent 04/24/19 20:40 EKG 12 Lead [EKG Documentation Completion] [RC] URGENT 04/24/19 20:59 LACTIC ACID [CHEM] Stat 04/24/19 21:00 CULTURE BLOOD [BC] Stat CULTURE BLOOD [BC] Stat Blood Culture x2 Reflex Set [OM.PC] Stat 04/24/19 21:01 RT Aerosol Therapy [RC] ASDIRECTED Albuterol/Ipratropium [DuoNeb 3.0-0.5 MG/3 ML] 3 ml NEB ONETIME ONE 04/24/19 21:02 methylPREDNISolone Sod Succ [Solu-MEDROL] 125 mg IVPUSH ONETIME ONE - Assessment/Plan Last 24 Hours: My Active Orders 04/24/19 20:30 B-TYPE NATRIURETIC PEPTIDE,BNP [CHEM] Stat CMP [COMPREHENSIVE METABOLIC PN,CMP] [CHEM] Stat TROPONIN I [CHEM] Stat 04/24/19 20:34 Chest 2V [CR] Urgent 04/24/19 20:40 EKG 12 Lead [EKG Documentation Completion] [RC] URGENT 04/24/19 20:59 LACTIC ACID [CHEM] Stat 04/24/19 21:00 CULTURE BLOOD [BC] Stat CULTURE BLOOD [BC] Stat Blood Culture x2 Reflex Set [OM.PC] Stat 04/24/19 21:01 RT Aerosol Therapy [RC] ASDIRECTED Albuterol/Ipratropium [DuoNeb 3.0-0.5 MG/3 ML] 3 ml NEB ONETIME ONE 04/24/19 21:02 methylPREDNISolone Sod Succ [Solu-MEDROL] 125 mg IVPUSH ONETIME ONE
[2019-04-24] MEDS ORDERED: Albuterol/Ipratropium 3.0-0.5 MG/3 ML Neb Soln NEB ONE (21:01)
[2019-04-24] MEDS ORDERED: methylPREDNISolone Sodium Succinate 125 MG/2 ML SDV IVPUSH ONE (21:02)
[2019-04-24 21:13] LABS: ANION GAP 13.8; CHLORIDE,CL 96 mmol/L (101-111); SODIUM,NA 134 mmol/L (135-145)
[2019-04-24] MEDS ORDERED: Levofloxacin/Dextrose 5%-Water 750 MG in Premix Bag 1 BAG IV ONE (22:11)
[2019-04-24] MEDS ORDERED: Sodium Chloride 0.9% 1,000 ML IV SCH (22:15)
[2019-04-24] MEDS ORDERED: cefTRIAXone 1 GM in Sodium Chloride 0.9% 50 ML IV ONE (22:22)
[2019-04-24] MEDS ORDERED: FLUTICASONE PROPION INH SCH (23:45)
[2019-04-24] MEDS ORDERED: ERGOCALCIFEROL PO SCH (23:45)
[2019-04-24] MEDS ORDERED: Sodium Chloride 0.9% 250 ML IV SCH (23:45)
[2019-04-24] MEDS ORDERED: SALMETEROL INH SCH (23:45)
[2019-04-24] MEDS ORDERED: [UNRECOGNIZED DRUG - OTHER] INH SCH (23:45)
[2019-04-24] MEDS ORDERED: [UNRECOGNIZED DRUG - OTHER] PO SCH (23:45)
[2019-04-24] MEDS ORDERED: Non-Formulary Medication 1 Each (Varenicline Tartrate [Chantix] 1 MG) PO SCH (23:45)
[2019-04-24] MEDS ORDERED: oxyCODONE 5 MG Tab PO PRN (23:47)
[2019-04-24] MEDS ORDERED: Acetaminophen 325 MG Tab PO PRN ×2 (23:47→23:49)
[2019-04-24] MEDS ORDERED: Magnesium Hydroxide 400 MG/5 ML Susp 30 ML Cup PO PRN (23:47)
[2019-04-24] MEDS ORDERED: Docusate Sodium 100 MG Cap PO PRN (23:47)
[2019-04-24] MEDS ORDERED: Ondansetron 4 MG Tab.DIS PO PRN (23:47)
[2019-04-25] MEDS: cefTRIAXone 1 GM in Sodium Chloride 0.9% 50 ML IV SCH (00:22)
[2019-04-25] MEDS: Albuterol/Ipratropium 3.0-0.5 MG/3 ML Neb Soln NEB SCH ×4 (00:23→17:27)
[2019-04-25] MEDS: Azithromycin 500 MG in Sodium Chloride 0.9% 250 ML IV SCH (01:06)
--- NOTE | 2019-04-25 04:32 | HP ---
CHIEF COMPLAINT: Weakness, tiredness, shortness of breath. HISTORY OF PRESENTING ILLNESS: Mrs. Preeti Remy is a 63-year-old female with a medical history significant for chronic obstructive pulmonary disease, chronic tobacco use, history of pneumonia in the past, pulmonary nodule, presents to the ER with complaints of increasing weakness and tiredness and noted to have hypotension, tachycardia, and further evaluation showed evidence of pneumonia needing admission to the hospital. At this time, the patient says that she has been feeling sick for the last 3 days which has been progressively getting worse. She grades the weakness as 7/10 in intensity, which got aggravated on exertion, relieved with rest. She also noted to have low blood pressure. Her blood pressure was down to 90 systolic and noted to have tachycardia since came to the ER. She also complains of increasing shortness of breath, 5-6/10 in intensity, aggravated on exertion, relieved with rest associated with cough with sputum, which is brownish in color at this time. Her grandson has been sick for the last 3-4 days too. She denies any ongoing chest pains. No abdominal pain. No nausea. No vomiting. No diarrhea. The patient denied any history of chest pains on exertion, but has mild dyspnea on exertion. No history of orthopnea or paroxysmal nocturnal dyspnea. The patient denied any history of hematemesis, hematochezia, or melenic stools. Normal bowel and bladder habits otherwise. REVIEW OF SYSTEMS: A complete review of system including skin, ear, nose, and throat, cardiovascular system, respiratory system, gastrointestinal system, genitourinary system, hematology, oncology, neurology, allergy, immunology, constitutional were all evaluated and were negative except for the above-said notes. PAST MEDICAL HISTORY: Significant for chronic obstructive pulmonary airway disease, chronic tobacco use, chronic congestive heart failure with systolic dysfunction, history of hypothyroidism. SURGICAL HISTORY: Significant for joint replacement, history of a bronchoscopy with bronchoalveolar lavage, abdominal surgery. FAMILY HISTORY: Significant for hypertension in her mother. SOCIAL HISTORY: The patient continues to smoke. She claims that she has been trying to cut down the smoking and she smokes 2 to 3 cigarettes a day now. No history of alcohol intake. No history of illicit drug use. ALLERGIES: The patient is allergic to levofloxacin which causes itching. HOME MEDICATIONS: Include Symbicort 2 puffs inhalation as needed, Fosamax 70 mg oral weekly, albuterol 1-2 puffs inhalation as needed, Tylenol 650 every 4 hours as needed, Chantix 1 mg as needed, Spiriva 18 mcg inhalation daily, Singulair 10 mg at bedtime, Toprol-XL 25 mg daily, Cozaar 25 mg daily, levothyroxine 75 mcg daily, Lasix 20 mg daily, ergocalciferol 8000 units weekly. PHYSICAL EXAMINATION: Vital Signs: Temperature of 98.8, pulse of 124, blood pressure of 119/100, respiratory rate of 22, saturating at 90% on 4 L of oxygen. General Appearance: The patient is well oriented to time, place, and person. Follows commands spontaneously. Cardiovascular System: S1, S2 heard with normal intensity. No gallops. Respiratory System: Bilateral wheeze noted, mostly at the bases. Mild crepitations at the bases. Dull to percussion to the right lower lobe. Abdomen: Soft. Bowel sounds positive. Nontender. No rigidity. No guarding. No rebound tenderness. Extremities: No edema, bilateral lower extremities. Neurology: No gross focal neurological deficits. LABORATORY DATA: 1. WBC 15.4, hemoglobin 15.9, hematocrit 50, platelet count 242. 2. Sodium 134, potassium 3.8, chloride 96, bicarb 28, BUN 13, creatinine 0.8, glucose 112, lactic acid 1.2. 3. Urinalysis; negative for nitrites, negative for leukocytes. 4. Chest x-ray shows a small amount of airspace disease in the left base could be atelectasis versus infiltrates, left upper lobe cavitary lesion unchanged from previous CT scans, left thyroid fullness consistent with lymphadenopathy seen on the CAT scan. ASSESSMENT: 1. Pneumonia. 2. Acute chronic obstructive pulmonary disease exacerbation. 3. Acute hypoxic respiratory failure. 4. Hypertensive episode. 5. Chronic congestive heart failure with systolic dysfunction with ejection fraction of 30%. 6. Chronic tobacco use and continued use. PLAN: 1. Pneumonia. The patient is complaining of cough with sputum. She is noted to have infiltrates on the chest x-ray and leukocytosis consistent with pneumonia process. The patient will be admitted to the hospital. We will start on ceftriaxone and Zithromax as she has allergy to levofloxacin. We will obtain sputum culture, blood culture, and follow the culture reports. 2. Acute COPD exacerbation. The patient noted to have mild wheeze on physical exam. We will have her on DuoNeb and Pulmicort nebulizer. We will have her on IV methylprednisone and the patient will be encouraged to use incentive spirometer and flutter valve for better pulmonary toileting. 3. Chronic tobacco use. The patient is educated about tobacco cessation. I strongly encouraged her to quit smoking which she understands and verbalized the same. We will have her on nicotine transdermal patch. 4. Hypotension. The patient was noted to be hypotensive, unsure if she has any sepsis secondary to tachycardia and leukocytosis. We will obtain serial lactic acid levels. We will gently hydrate her given her underlying congestive heart failure. Try to avoid any hypotensive episodes. 5. DVT prophylaxis indicated. We will have her on Lovenox for DVT prophylaxis. 6. Code status. The patient wants to be DNR/DNI. 7. Discussed with ER staff regarding the plan of care. Reviewed the labs and medications. Reviewed the old charts. [facility] /[id number]
[2019-04-25] MEDS: Budesonide 0.5 MG/2 ML Neb Susp NEB SCH ×4 (04:34→17:29)
[2019-04-25] MEDS ORDERED: methylPREDNISolone Sodium Succinate 40 MG/1 ML SDV IVPUSH SCH ×2 (05:00)
[2019-04-25] MEDS: Levothyroxine 75 MCG Tab PO SCH (05:41)
[2019-04-25 07:06] LABS: ANION GAP 15.1; CHLORIDE,CL 96 mmol/L (101-111); SODIUM,NA 136 mmol/L (135-145)
[2019-04-25] MEDS: Enoxaparin 40 MG/0.4 ML Syringe SUBCUT SCH (08:27)
[2019-04-25] MEDS: Furosemide 20 MG Tab PO SCH (08:27)
[2019-04-25] MEDS: Metoprolol Succinate 25 MG Tab.ER PO SCH ×2 (08:28→09:59)
[2019-04-25] MEDS: Tiotropium Inhaler 18 MCG Inhalation Powder Cap Kit of 5 INH SCH (11:03)
--- NOTE | 2019-04-25 13:17 | PN ---
DATE: 04/25/2019 SUBJECTIVE: Mrs. Preeti Remy is a 63-year-old female with a medical history significant for chronic obstructive pulmonary disease, chronic tobacco use, history of pneumonia in the past, pulmonary nodule, admitted to the hospital with complaints of increasing shortness of breath. Noted to have pneumonia with COPD exacerbation and possible sepsis. For the last 24 hours, the patient was continued on antibiotics, IV methylprednisolone, and nebulizer treatment. Her shortness of breath has improved from the time of admission. She denies any chest pain. No abdominal pain. No nausea. No vomiting. No diarrhea. REVIEW OF SYSTEMS: Cardiovascular, respiratory, gastrointestinal, neurology, and constitutional were all evaluated. PHYSICAL EXAMINATION: Vital Signs: Temperature of 96.9, pulse of 99, blood pressure 111/52, respiratory rate of 18, saturating at 91% on 2 L of oxygen. General Appearance: The patient is well oriented to time, place, and person. Follows commands spontaneously. Cardiovascular System: S1 and S2 heard with normal intensity. No gallops. Respiratory System: Clear to auscultation bilaterally except for mild crepitations at the base. Mild wheeze at the base. Abdomen: Soft. Bowel sounds positive. Nontender. No rigidity. Extremities: No edema in bilateral lower extremities. LABORATORY DATA: Labs reviewed. WBC 11.4, hemoglobin 15.1, hematocrit 48.2, platelet count 234. Sodium 136, potassium 4.1, chloride 96, bicarb 29, BUN 15, creatinine 0.8, lactic acid 2.4. MICROBIOLOGY: No results yet. MEDICATIONS: Reviewed. Continue with Tylenol 650 every 4 hours as needed for pain, DuoNeb every 6 hours, Pulmicort twice a day 0.5 mg, ceftriaxone 1 g daily, Lovenox 40 mg subcutaneous daily, Lasix 20 mg daily, levothyroxine 75 mcg daily, Toprol-XL 25 mg daily, prednisone 40 mg from tomorrow, and Spiriva 18 mcg inhalation daily. ASSESSMENT: 1. Acute chronic obstructive pulmonary disease exacerbation. 2. Pneumonia. 3. Acute hypoxic respiratory failure. 4. Possible sepsis. 5. Hypotensive episode with underlying hypertension. 6. Chronic congestive heart failure with systolic dysfunction, stable. Ejection fraction 30%. 7. Chronic tobacco use. PLAN: 1. Pneumonia. The patient is started on IV antibiotics, ceftriaxone and Zithromax. We will follow sputum culture and blood culture and titrate antibiotics. 2. Possible sepsis. The patient was noted to have tachycardia and leukocytosis at the time of admission suggestive of possible sepsis. Her lactic acid was within normal limits at the time of admission, but elevated this morning. She received IV fluids. Given her history of congestive heart failure, we will be cautious regarding IV hydration. We will follow the blood cultures and continue with antibiotics. 3. Hypertension. The patient was hypotensive at the time of admission. She was on metoprolol-XL and Cozaar. We had to hold the Cozaar on this admission. Continue with metoprolol-XL. She received IV fluids, again be cautious regarding IV hydration. 4. Chronic congestive heart failure. Remains stable. No edema to the lower extremities. She has been on low-dose Lasix. Continue the same. 5. Chronic tobacco use. We will have her on nicotine transdermal patch while in the hospital. The patient is educated about tobacco cessation, strongly encouraged her to quit smoking which she understands and verbalized the same. 6. DVT prophylaxis. Continue with Lovenox for DVT prophylaxis. 7. Acute respiratory failure with hypoxia. The patient continues to be needing 2 L of nasal cannula oxygen. She is encouraged to use incentive spirometer and flutter valve for better pulmonary toileting. Continue with supplemental oxygen to maintain a saturation of 95%. [facility] /[id number]
[2019-04-25] MEDS: Montelukast 10 MG Tab PO SCH (21:03)
[2019-04-26] MEDS: cefTRIAXone 1 GM in Sodium Chloride 0.9% 50 ML IV SCH ×2 (00:07→23:28)
[2019-04-26] MEDS: Azithromycin 500 MG in Sodium Chloride 0.9% 250 ML IV SCH (00:35)
[2019-04-26] MEDS: Albuterol/Ipratropium 3.0-0.5 MG/3 ML Neb Soln NEB SCH ×4 (00:42→17:27)
[2019-04-26] MEDS: Levothyroxine 75 MCG Tab PO SCH (06:07)
[2019-04-26 06:49] LABS: ANION GAP 10.2; CHLORIDE,CL 102 mmol/L (101-111); SODIUM,NA 140 mmol/L (135-145)
[2019-04-26] MEDS: Budesonide 0.5 MG/2 ML Neb Susp NEB SCH ×2 (07:16→17:27)
[2019-04-26] MEDS ORDERED: predniSONE 20 MG Tab PO SCH (08:00)
[2019-04-26] MEDS: Enoxaparin 40 MG/0.4 ML Syringe SUBCUT SCH (09:30)
[2019-04-26] MEDS: Metoprolol Succinate 25 MG Tab.ER PO SCH (09:30)
[2019-04-26] MEDS: Furosemide 20 MG Tab PO SCH (09:31)
[2019-04-26] MEDS: Tiotropium Inhaler 18 MCG Inhalation Powder Cap Kit of 5 INH SCH (11:55)
--- NOTE | 2019-04-26 15:17 | PN ---
DATE: 04/26/2019 HISTORY OF PRESENT ILLNESS: Ms. Preeti Remy is a 63-year-old female with medical history significant for chronic obstructive pulmonary disease, chronic tobacco use, pneumonia in the past, admitted with complaints of increasing shortness of breath. Noted to have pneumonia with COPD exacerbation. For the last 24 hours, the patient continues to be on nasal cannula oxygen. She is down to requiring 1 L of nasal cannula oxygen. She denies any ongoing chest pain. Continues to have shortness of breath on exertion. Denies any abdominal pain. No nausea. No vomiting. No diarrhea. REVIEW OF SYSTEMS: Cardiovascular, respiratory, gastrointestinal, neurology, constitutional were all evaluated. PHYSICAL EXAMINATION: Vitals: Temperature of 97.5, pulse of 87, blood pressure 135/78, respiratory rate of 20, saturating at 92% on 1.5 L of oxygen. General Appearance: The patient is well oriented to time, place, and person. Follows commands spontaneously. Cardiovascular System: S1, S2 heard with normal intensity. No gallops. Respiratory System: Bilateral wheeze noted. Abdomen: Soft. Bowel sounds positive. Nontender. No rigidity. Extremities: No edema of bilateral lower extremities. MEDICATIONS: Reviewed. Continue with DuoNeb and Pulmicort nebulizer. Continue with oral prednisone. Continue with ceftriaxone and Zithromax for IV antibiotics. Lovenox 40 mg subcu for DVT prophylaxis, Lasix 20 mg daily, levothyroxine 75 mcg daily, Toprol-XL 25 mg daily, Singulair 10 mg at bedtime, oxycodone 5 mg every 4 hours as needed for pain, Spiriva 18 mcg inhalation daily. LABORATORY DATA: Reviewed. WBC 15.1, hemoglobin 13.5, hematocrit 43.1, platelet count 232. Sodium 140, potassium 4.2, chloride 102, BUN 16, creatinine 0.7, glucose 122. ASSESSMENT: 1. Acute chronic obstructive pulmonary disease exacerbation. 2. Pneumonia. 3. Hypertension. 4. Acute hypoxic respiratory failure. 5. Possible sepsis. 6. Chronic congestive heart failure with systolic dysfunction, ejection fraction of 30%. 7. Chronic tobacco use. PLAN: 1. Pneumonia. The patient is currently on IV antibiotics. So far cultures remained negative. Continue with ceftriaxone and Zithromax. 2. Acute COPD exacerbation, improving. Continue with nebulizer treatment. She continues to have wheeze on physical examination. Continue with DuoNeb and Pulmicort nebulizer. The patient is encouraged to use incentive spirometer and flutter valve for better pulmonary toileting. 3. Acute hypoxic respiratory failure. She is continued on nasal cannula oxygen. She was requiring 4 L at the time of admission. Currently, she is on 1 to 1.5 L. We will have a walking desaturation study to see if the patient would need home oxygen. Try to maintain saturations around 95%. 4. Chronic tobacco use. The patient was educated about tobacco cessation on this admission. 5. Hypertension. The patient was hypotensive at the time of admission. Her blood pressure has improved. Try to avoid any hypotensive episode. 6. Chronic congestive heart failure. Remains stable. Continue with Lasix. She is noted to have systolic dysfunction with ejection fraction of 30%. 7. Possible sepsis, resolved. Continue with current IV antibiotic regimen. 8. Discharge plans ongoing. [facility] /[id number]
[2019-04-26] MEDS: methylPREDNISolone Sodium Succinate 40 MG/1 ML SDV IVPUSH SCH ×2 (17:17→21:52)
[2019-04-26] MEDS: Montelukast 10 MG Tab PO SCH (20:31)
[2019-04-26] MEDS: Sodium Chloride 0.9% 10 ML Syringe FLUSH PRN ×2 (21:53→23:27)
[2019-04-27] MEDS: Sodium Chloride 0.9% 10 ML Syringe FLUSH PRN ×6 (00:31→23:45)
[2019-04-27] MEDS: Azithromycin 500 MG in Sodium Chloride 0.9% 250 ML IV SCH (00:31)
[2019-04-27] MEDS: Albuterol/Ipratropium 3.0-0.5 MG/3 ML Neb Soln NEB SCH ×5 (00:41→17:02)
[2019-04-27] MEDS: methylPREDNISolone Sodium Succinate 40 MG/1 ML SDV IVPUSH SCH ×3 (05:40→22:52)
[2019-04-27] MEDS: Levothyroxine 75 MCG Tab PO SCH (05:40)
[2019-04-27] MEDS: Budesonide 0.5 MG/2 ML Neb Susp NEB SCH ×3 (07:27→17:02)
[2019-04-27] MEDS: Enoxaparin 40 MG/0.4 ML Syringe SUBCUT SCH (09:20)
[2019-04-27] MEDS: Metoprolol Succinate 25 MG Tab.ER PO SCH (09:20)
[2019-04-27] MEDS: Furosemide 20 MG Tab PO SCH (09:20)
[2019-04-27] MEDS: Tiotropium Inhaler 18 MCG Inhalation Powder Cap Kit of 5 INH SCH (11:24)
--- NOTE | 2019-04-27 13:55 | PN ---
DATE: 04/27/2019 HISTORY OF PRESENT ILLNESS: Ms. Preeti Remy is a 63-year-old female with medical history significant for chronic obstructive pulmonary airway disease, chronic tobacco use, history of pneumonia in the past admitted with complaints of increasing shortness of breath, noted to have acute COPD exacerbation with pneumonia. For the last 24 hours, the patient continues to be hypoxic. She is on nasal cannula oxygen. She had a walking desaturation study done yesterday where she was needing more than 5 L of oxygen on ambulation. She denies any ongoing chest pains. Complains of mild shortness of breath on exertion. Denies any abdominal pain. No nausea. No vomiting. No diarrhea. REVIEW OF SYSTEMS: Cardiovascular, respiratory, gastrointestinal, neurology, constitutional were all evaluated. PHYSICAL EXAMINATION: Vitals: Temperature of 97.6, pulse of 76, blood pressure 116/63, respiratory rate of 20, saturating at 91% on 2 L of oxygen. General Appearance: The patient is well oriented to time, place, and person. Follows commands spontaneously. Cardiovascular System: S1, S2 heard with normal intensity. No gallops. Respiratory System: Clear to auscultation bilaterally except for mild wheezes at the bases. Abdomen: Soft. Bowel sounds positive. Nontender. No rigidity. Extremities: No edema of bilateral lower extremities. MEDICATIONS: Reviewed. Continue with ceftriaxone and Zithromax. Continue with DuoNeb and Pulmicort. Continue with Lovenox for DVT prophylaxis. Lasix 20 mg daily, levothyroxine 75 mcg daily, Solu-Medrol 80 mg IV q.8 hourly, Toprol-XL 25 mg daily, oxycodone 5 mg every 4 hours as needed, Spiriva 18 mcg inhalation daily. LABORATORY DATA: No new labs ordered for today. We will order for a CBC and BMP for a.m. ASSESSMENT: 1. Acute chronic obstructive pulmonary disease exacerbation. 2. Acute hypoxic respiratory failure. 3. Pneumonia. 4. Hypertension. 5. Possible sepsis. 6. Chronic congestive heart failure with systolic dysfunction, ejection fraction of 30%. 7. Chronic tobacco use. PLAN: 1. Pneumonia. The patient is started on IV antibiotics. So far, her cultures remained negative. Continue ceftriaxone and Zithromax. We will switch her to oral antibiotic at the time of discharge. 2. Acute COPD exacerbation, improved. We had to switch her back to IV methylprednisone as she continued to have wheeze. We gradually weaned on the steroid. Continue with DuoNeb and Pulmicort nebulizer. She is encouraged to use incentive spirometer and flutter valve for better pulmonary toileting. 3. Acute hypoxic respiratory failure. The patient continues to be hypoxic. She is requiring around more than 5 L of oxygen on ambulation, so we could not discharge her home. We will continue with the current treatment plan and one might consider getting a CT scan of the chest if she does not improve. 4. Chronic congestive heart failure, remains stable. Continue the Lasix. Avoid any aggressive hydration, maintain euvolemic status. 5. DVT prophylaxis. Continue with Lovenox for DVT prophylaxis. 6. The patient claimed that she had a biopsy at [facility], we will try to follow with the biopsy report. [facility] /[id number]
[2019-04-27] MEDS: Montelukast 10 MG Tab PO SCH (22:49)
[2019-04-27] MEDS: cefTRIAXone 1 GM in Sodium Chloride 0.9% 50 ML IV SCH (23:46)
[2019-04-28] MEDS: Sodium Chloride 0.9% 10 ML Syringe FLUSH PRN ×7 (00:51→21:46)
[2019-04-28] MEDS: Azithromycin 500 MG in Sodium Chloride 0.9% 250 ML IV SCH (00:52)
[2019-04-28] MEDS: Albuterol/Ipratropium 3.0-0.5 MG/3 ML Neb Soln NEB SCH ×4 (00:55→18:00)
[2019-04-28] MEDS: methylPREDNISolone Sodium Succinate 40 MG/1 ML SDV IVPUSH SCH ×3 (05:17→21:46)
[2019-04-28] MEDS: Levothyroxine 75 MCG Tab PO SCH (05:17)
[2019-04-28] MEDS: Budesonide 0.5 MG/2 ML Neb Susp NEB SCH ×3 (07:23→17:00)
[2019-04-28] MEDS: Metoprolol Succinate 25 MG Tab.ER PO SCH (08:33)
[2019-04-28] MEDS: Enoxaparin 40 MG/0.4 ML Syringe SUBCUT SCH (08:33)
[2019-04-28] MEDS: Furosemide 20 MG Tab PO SCH (08:33)
[2019-04-28] MEDS: Tiotropium Inhaler 18 MCG Inhalation Powder Cap Kit of 5 INH SCH (11:24)
--- NOTE | 2019-04-28 13:53 | PN ---
DATE: 04/28/2019 HISTORY OF PRESENT ILLNESS: Ms. Preeti Remy is a 63-year-old female with a medical history significant for chronic obstructive pulmonary disease, chronic tobacco use, history of pneumonia in the past, admitted with increasing shortness of breath, noted to have COPD exacerbation with underlying pneumonia and acute hypoxic respiratory failure. For the last 24 hours, the patient continues to be on nasal cannula oxygen. She is needing around 2 L of nasal cannula oxygen. She denies any ongoing chest pain. No shortness of breath. No abdominal pain. No nausea. No vomiting. No diarrhea. REVIEW OF SYSTEMS: Cardiovascular, respiratory, gastrointestinal, neurology, constitutional were all evaluated. PHYSICAL EXAMINATION: Vitals Signs: Temperature of 97.6, pulse of 78, blood pressure 137/74, respiratory rate of 20, and saturating at 92% on 2 L of oxygen. General Appearance: The patient is alert and oriented to time, place, and person. Follows commands spontaneously. Cardiovascular System: S1, S2 heard with normal intensity. No gallops. Respiratory System: Clear to auscultation bilaterally. No wheeze. No crepitations. Abdomen: Soft. Bowel sounds positive. Nontender. No rigidity. Extremities: No edema bilateral lower extremities. MEDICATIONS: Reviewed: 1. Continue with Tylenol 650 every 4 hours as needed for pain and fever. 2. Continue DuoNeb and Pulmicort nebulizer. 3. Continue with IV ceftriaxone. 4. Change IV Zithromax to oral Zithromax. 5. Lovenox 40 mg subcutaneous daily. 6. Lasix 20 mg daily. 7. Levothyroxine 75 mcg daily. 8. Solu-Medrol decreased to 40 mg IV q.8 hourly. 9. Toprol-XL 25 mg daily. 10.Singulair 10 mg at bedtime. 11.Oxycodone 5 mg every 4 hours as needed. 12.Spiriva 18 mcg inhalation daily. LABORATORY DATA: 1. WBC 15.1, hemoglobin 13.5, hematocrit 43.1, and platelet count 232. 2. Sodium 140 potassium 4.2, chloride 102, bicarb 32, BUN 16, creatinine 0.7, glucose 122. ASSESSMENT: 1. Pneumonia. 2. Acute chronic obstructive pulmonary disease exacerbation, improved. 3. Acute hypoxic respiratory failure. 4. Hypertension. 5. Possible sepsis. 6. Chronic congestive heart failure with systolic dysfunction with ejection fraction of 30%. 7. Chronic tobacco use. PLAN: 1. Pneumonia. The patient admitted with increasing shortness of breath. She is currently on IV antibiotic of ceftriaxone. Change Zithromax to oral Zithromax. So far, her cultures remained negative. 2. Acute COPD exacerbation, much improved. We will decrease the IV methylprednisone to 40 mg q.8 hourly and later change to oral prednisone at discharge. Continue with Pulmicort and DuoNeb nebulizer. Continue with incentive spirometer and flutter valve. 3. Acute hypoxic respiratory failure. The patient continues to be hypoxic. She was requiring more than 5 L of oxygen on walking desat study done previously. She is down to 2 L of nasal cannula oxygen. We will repeat a walking desat tomorrow for further evaluation. 4. Chronic congestive heart failure with systolic dysfunction. Continue with Lasix. She appears to be in euvolemic status. 5. Possible sepsis, much improved. Continue the IV antibiotics. 6. Hypertension, well controlled. Continue current antihypertensive medications. [facility] /[id number]
[2019-04-28] MEDS: Montelukast 10 MG Tab PO SCH (21:45)
[2019-04-29] MEDS: Sodium Chloride 0.9% 10 ML Syringe FLUSH PRN ×4 (00:13→06:06)
[2019-04-29] MEDS: cefTRIAXone 1 GM in Sodium Chloride 0.9% 50 ML IV SCH (00:14)
[2019-04-29] MEDS: Albuterol/Ipratropium 3.0-0.5 MG/3 ML Neb Soln NEB SCH ×3 (00:18→13:29)
[2019-04-29] MEDS: methylPREDNISolone Sodium Succinate 40 MG/1 ML SDV IVPUSH SCH ×2 (06:02→14:07)
[2019-04-29] MEDS: Levothyroxine 75 MCG Tab PO SCH (06:02)
[2019-04-29 06:21] LABS: ANION GAP 10.5; CHLORIDE,CL 98 mmol/L (101-111); SODIUM,NA 138 mmol/L (135-145)
[2019-04-29] MEDS: Budesonide 0.5 MG/2 ML Neb Susp NEB SCH (07:37)
[2019-04-29] MEDS: Enoxaparin 40 MG/0.4 ML Syringe SUBCUT SCH (08:26)
[2019-04-29] MEDS: Furosemide 20 MG Tab PO SCH (08:26)
[2019-04-29] MEDS: Metoprolol Succinate 25 MG Tab.ER PO SCH (08:27)
[2019-04-29] MEDS ORDERED: Azithromycin 250 MG Tab PO SCH (09:00)
[2019-04-29] MEDS ORDERED: Iopamidol 612 MG/ML 75 ML Bottle IVPUSH ONE (11:12)
[2019-04-29] MEDS ORDERED: Sodium Chloride 0.9% 250 ML IV ONE (11:15)
[2019-04-29] MEDS ORDERED: Iopamidol 755 Mg/ML 100 ML Bottle IVPUSH ONE (11:34)
[2019-04-29] MEDS: Tiotropium Inhaler 18 MCG Inhalation Powder Cap Kit of 5 INH SCH (12:18)
--- NOTE | 2019-04-29 13:41 | PN ---
DATE: 04/29/2019 SUBJECTIVE: Ms Preeti Remy is a 63-year-old female with a medical history significant for chronic obstructive pulmonary disease and chronic tobacco use admitted with pneumonia and COPD exacerbation with respiratory failure with hypoxia. For the last 24 hours, the patient continues to be on nasal cannula oxygen. She is requiring 2-3 L of nasal cannula oxygen. She denies any ongoing chest pain. No abdominal pain. No nausea. No vomiting. No diarrhea. REVIEW OF SYSTEMS: Cardiovascular, respiratory, gastrointestinal, neurology, constitutional were all evaluated. PHYSICAL EXAMINATION: Vital Signs: Temperature of 97.6, pulse of 86, blood pressure 128/70, respiratory rate of 20, saturating at 93% on 2 L of oxygen. General Appearance: The patient is well oriented to time, place, and person. Follows commands spontaneously. Cardiovascular System: S1 and S2 heard with normal intensity. No gallops. Respiratory: Clear to auscultation bilaterally. Mild wheeze at the bases. Abdomen: Soft. Bowel sounds positive. Extremities: No edema in bilateral lower extremities. MEDICATIONS: Reviewed. Continue with Tylenol 650 every 4 hours as needed for pain and fever, Zithromax oral 250 mg daily, Pulmicort 0.5 mg nebulizer twice a day, DuoNeb every 6 hourly, ceftriaxone 1 g IV daily, Lovenox 40 mg subcutaneous daily, levothyroxine 75 mcg daily, methylprednisone 40 mg IV q.8 hourly, Toprol- XL 25 mg daily, oxycodone 5 mg every 4 hours as needed for pain, Spiriva 18 mcg inhalation daily. LABORATORY DATA: WBC 16.3, hemoglobin 14.5, hematocrit 47, platelet count 237. Sodium 138, potassium 4.5, chloride 98, bicarb 34, BUN 21, creatinine 0.7. ASSESSMENT: 1. Pneumonia. 2. Acute chronic obstructive pulmonary disease exacerbation. 3. Acute hypoxic respiratory failure. 4. Hypertension. 5. Possible sepsis. 6. Chronic congestive heart failure with systolic dysfunction, ejection fraction of 30%. 7. Chronic tobacco use. PLAN: 1. Pneumonia. The patient was admitted with pneumonia. She seems to be much improved. She denies any further complaints of cough with sputum. Continue current IV antibiotic regimen. Switched her Zithromax to oral. 2. Acute respiratory failure with hypoxia. The patient continues to be hypoxic, exact etiology not clear. She is requiring around 5 L of nasal cannula oxygen on ambulation. We did a walking desaturation study today, and she is requiring 5 L on ambulation to sustain 90%. We will get a CT scan of the chest with PE protocol to rule out any pulmonary embolism or any underlying etiology to explain for this worsening hypoxia. 3. Acute COPD exacerbation, improved. The patient has mild wheeze. Continue with nebulizer treatment with DuoNeb and Pulmicort nebulizer. We have been titrating down the steroids. Continue with IV methylprednisone 40 q.8 hourly. The patient is encouraged to use incentive spirometer and flutter valve. 4. Possible sepsis, improved. 5. DVT prophylaxis. Continue with Lovenox for DVT prophylaxis. [facility] /[id number]
--- NOTE | 2019-04-29 15:18 | DISCH ---
ADMIT DIAGNOSES: 1. Possible pneumonia. 2. Acute chronic obstructive pulmonary disease exacerbation. 3. Acute hypoxic respiratory failure. 4. Possible sepsis. DISCHARGE DIAGNOSES: 1. Pneumonia. 2. Acute chronic obstructive pulmonary disease exacerbation, improved. 3. Acute hypoxic respiratory failure. 4. Possible sepsis, improved. 5. Cavitary lung lesion on the left side. 6. Chronic congestive heart failure with systolic dysfunction, ejection fraction of 30%. HISTORY OF PRESENTING ILLNESS: Mrs. Preeti Remy is a 63-year-old female with a medical history significant for chronic obstructive pulmonary disease, chronic tobacco use, history of pneumonia in the past, cavitary lung lesion in the past, tested negative for tuberculosis, histoplasmosis, and blastomycosis in the past, admitted to the hospital with complaints of increasing shortness of breath and noted to have pneumonia, COPD exacerbation, and acute hypoxic respiratory failure. She is requiring around 5 L of oxygen on initial presentation, but she was down to 2-3 L on rest, and she was still requiring 5 L of nasal cannula oxygen on ambulation. She had a CT scan on this admission, which showed evidence of big cavitary lesion on the left side. The patient will need further workup with pulmonary consultation for possible bronchoscopy to rule out any malignancy on this cavitary lung lesion. She is discharged to [facility] in stable condition. She will follow with pulmonary consultation. DISCHARGE MEDICATIONS: Include: 1. Tylenol 650 every 4 hours as needed for pain. 2. Albuterol and Atrovent 1 puff inhalation 4 times daily. 3. DuoNeb 4 times daily. 4. Fosamax 70 mg weekly. 5. Zithromax 250 mg daily. 6. Benzonatate 100 mg 3 times daily as needed. 7. Pulmicort 0.5 mg nebulizer twice daily. 8. Docusate sodium 100 mg twice daily. 9. Lovenox 40 mg subcutaneous daily. 10.Vitamin D3, 5000 units weekly. 11.Fluticasone 1 puff inhalation twice daily. 12.Lasix 20 mg daily. 13.Levothyroxine 100 mcg daily. 14.Loratadine 10 mg daily. 15.Cozaar 50 mg daily. 16.Metoprolol succinate 50 mg daily. 17.Singulair 10 mg at bedtime. 18.Spiriva 18 mcg inhalation daily. 19.Chantix 1 mg twice daily. 20.Ceftriaxone 1 g daily. 21.Solu-Medrol 40 mg IV q.8 hourly. 22.Oxycodone 5 mg oral every 4 hours as needed. PHYSICAL EXAMINATION ON THE DAY OF DISCHARGE: Vital Signs: Temperature of 97.7, pulse of 83, blood pressure of 126/71, respiratory rate of 20, saturating at 93% on 2 L of oxygen. General Appearance: The patient is well oriented to time, place, and person. Follows commands spontaneously. Cardiovascular System: S1 and S2 heard with normal intensity. No gallops. Respiratory: Clear to auscultation bilaterally. No wheeze. No crepitations. Abdomen: Soft. Bowel sounds positive. Nontender. No rigidity. Extremities: No edema in bilateral lower extremities. CONDITION ON ADMISSION: Poor. CONDITION ON DISCHARGE: Stable. DISPOSITION: Discharged to [facility] for evaluation by pulmonary team for possible bronchoscopy for her cavitary lung lesion on the left side. DIET: Cardiac healthy diet. ACTIVITY: As tolerated. FOLLOWUP: Follow with primary care physician [address] [facility]. I spent over 35 minutes of time in evaluating and treating this patient and making discharge plans. [facility] /[id number]
[2019-04-29 15:41] VITALS: BP 124/77; PULSE 81
--- NOTE | 2019-04-29 16:19 | CT ---
EXAMINATION: Chest w Cont SEX: Female AGE: 63 years CLINICAL HISTORY: 63-year-old 258 pound female smoker complaining of Shortness of Breath (Hypoxia) who was reported to have a "solid nodule ROSE with multi segment RUL pneumonia" on CT scan chest 27 July 2018 that subsequently "cavitated" (2.5 cm diameter thin-walled cavity confirmed axillary segment left upper lobe but "RUL masslike-infiltrates" completely cleared on [address] exam. Follow-up evaluation please. Scan technique: Volume acquisition of data from the chest obtained without oral contrast but during intravenous infusion 90 cc nonionic Isovue 370 contrast while patient was lying supine on the Siemens multislice scanner [place], [place] (PE STUDY at 5 cc/s via injector). All data archived in the PACS system for storage, reformatting axial/sagittal/coronal planes and study (lung/mediastinal windows). INTERPRETATION: 1. Extensive NEW left perihilar and infracarinal, middle mediastinal LYMPHADENOPATHY. 2. Now larger 2.9 cm diameter cystic lesion axillary segment left upper lobe with asymmetrically THICKENED WALL. No solid nidus or dependent air-fluid level. No other solid or cystic parenchymal lung nodules identified on today's exam. 3. Chronic lingular and/or pericardial fibrosis. 4. No new infiltrate or atelectasis. No malignant effusion. 5. Normal cardiac silhouette. No pericardial effusion. No pulmonary venous congestion, alveolar edema or pleural effusion. 6. Low-attenuation lesions with marginal enhancement right lobe of the liver (probable hemangiomas but the larger lesion posteriorly dome of the right lobe of the liver appears to be new. Metastatic disease? Suggest triphase liver CT or MRI). CONCLUSION: New lymphadenopathy. Cystic lesion ROSE enlarged with increased wall thickness. See comments regarding liver above.
== END 2019-04-29 16:10 | DRG 871 ==
LOC: DL.ED 20:13 → DL.MS 22:12 → UNDOADMIN 22:24 → DL.MS 22:24
PROVIDERS: ADMIT Internal Medicine; ATTEND Internal Medicine
DX: J18.1 Lobar pneumonia, unspecified organism (principal); E86.0 Dehydration; R53.83 Other fatigue; R06.02 Shortness of breath; J44.9 Chronic obstructive pulmonary disease, unspecified; I10 Essential (primary) hypertension; A41.9 Sepsis, unspecified organism; J18.9 Pneumonia, unspecified organism; J96.01 Acute respiratory failure with hypoxia; J44.1 Chronic obstructive pulmonary disease with (acute) exacerbation; I50.22 Chronic systolic (congestive) heart failure; J44.0 Chronic obstructive pulmonary disease with (acute) lower respiratory infection; I42.9 Cardiomyopathy, unspecified; Z68.41 Body mass index [BMI] 40.0-44.9, adult; Z66 Do not resuscitate; R91.1 Solitary pulmonary nodule; E03.9 Hypothyroidism, unspecified; M81.0 Age-related osteoporosis without current pathological fracture; F17.210 Nicotine dependence, cigarettes, uncomplicated; H54.7 Unspecified visual loss; E66.9 Obesity, unspecified; I25.10 Atherosclerotic heart disease of native coronary artery without angina pectoris; E55.9 Vitamin D deficiency, unspecified; I11.0 Hypertensive heart disease with heart failure; Z87.01 Personal history of pneumonia (recurrent); Z88.1 Allergy status to other antibiotic agents; Z79.899 Other long term (current) drug therapy
CPT/HCPCS: 36415; 71046; 71260; 80048; 80053; 81001; 83605; 83880; 84484; 85025; 85027; 87040; 87070; 87205; 93005; 94010; 94618; 94640; 94667; 99284; 99285-25; A9270-GY; J0456; J0696; J1650; J2920; J2930; J7030; J7050; J7620-GY; Q9967